=== PATIENT | female | born 1945 | race Caucasian/White ===

== ENCOUNTER → 2016-12-27 | Outpatient (CLI) | payer MEDICARE ==
--- NOTE | 2016-12-30 09:19 | MM ---
Reason for exam: screening (asymptomatic). Last mammogram was performed 1 year ago. History: Patient is postmenopausal. Took estrogen for 5 years. Took progesterone for 5 years. Physical Findings: A clinical breast exam by your physician is recommended on an annual basis and results should be correlated with mammographic findings. MG 3D Screening Mammo W/Cad Bilateral CC and MLO view(s) were taken. Prior study comparison: December 19, 2015, bilateral MG 3d screening mammo w/cad. November 25, 2014, bilateral MG screening mammo w CAD. The breast tissue is heterogeneously dense. This may lower the sensitivity of mammography. Stable punctate calcifications. New nodule lower inner right breast, 3.8cm from nipple. This finding is changed when compared with previous exams. ASSESSMENT: Incomplete: need additional imaging evaluation, BI-RAD 0 RECOMMENDATION: Special view mammogram of the right breast. If lesion persists on supplemental views, image directed ultrasound is recommended. [facility] will attempt to contact patient to return for supplemental views and ultrasound if indicated.
== END | disposition home or self-care (01) ==
LOC: RADMAMWWP 10:14
PROVIDERS: ATTEND Family Medicine
DX: Z12.31 Encounter for screening mammogram for malignant neoplasm of breast (principal); R92.2 Inconclusive mammogram
CPT/HCPCS: 77063; G0202

== ENCOUNTER → 2016-12-31 | Outpatient (CLI) | payer MEDICARE ==
--- NOTE | 2016-12-31 11:44 | MM ---
Reason for exam: additional evaluation requested from abnormal screening. Last mammogram was performed less than 1 month ago. History: Patient is postmenopausal. Took estrogen for 5 years. Took progesterone for 5 years. Physical Findings: Nurse did not find any significant physical abnormalities on exam. MG 3D Work Up W/Cad RT CC and MLO view(s) were taken of the right breast. Prior study comparison: December 27, 2016, bilateral MG 3d screening mammo w/cad. December 19, 2015, bilateral MG 3d screening mammo w/cad. There are scattered fibroglandular densities. Persistent nodule lower inner quadrant right breast. Ultrasound is recommended. These results were verbally communicated with the patient and result sheet given to the patient on 12/31/16. ASSESSMENT: Incomplete: need additional imaging evaluation, BI-RAD 0 RECOMMENDATION: Ultrasound of the right breast.
--- NOTE | 2016-12-31 11:46 | USB ---
Reason for exam: additional evaluation requested from abnormal screening. History: Patient is postmenopausal. Took estrogen for 5 years. Took progesterone for 5 years. US Breast Workup Limited RT Right breast ultrasound demonstrates a 0.8 x 0.4 x 0.9cm oval, solid lesion at 3 o'clock. These results were verbally communicated with the patient and result sheet given to the patient on 12/31/16. ASSESSMENT: Suspicious, BI-RAD 4 RECOMMENDATION: Ultrasound core biopsy of the right breast. Called Dr. Briones with mammographic findings and has scheduled an appointment for the patient for 02/27/17 at 10:[address] Ballesteros. Biopsy scheduled for 01/09/17 at 12:20. PRELIMINARY REPORT CALLED AND FAXED TO DR. BALLESTEROS ON 12/31/16 AT 300/TP.
== END | disposition home or self-care (01) ==
LOC: RADMAMWWP 08:08
PROVIDERS: ATTEND Family Medicine
DX: R92.8 Other abnormal and inconclusive findings on diagnostic imaging of breast (principal)
CPT/HCPCS: 76642; G0206; G0279

== ENCOUNTER → 2017-01-09 | Day surgery (SDC) | payer MEDICARE ==
[~2017-01-09] MED LIST: BACITRACIN OINT 1 EACH PACKET TOPICAL ONE; LIDOCAINE 1% INJ 10MG/ML (20 ML MDV) ONE; SODIUM BICARB 4% 5 ML VIAL (0.48 MEQ/ML) ONE
--- NOTE | 2017-01-09 13:24 | USB ---
EXAMINATION TYPE: US biopsy breast VAD RT, MG diagnostic mammo RT wo CAD DATE OF EXAM: 01/09/2017 1:02 PM CLINICAL HISTORY: R92.8 ABN Mammogram. TECHNIQUE: Ultrasound guided core biopsy of right 3:00 breast. COMPARISON: NONE FINDINGS: The procedure of ultrasound guided core biopsy was explained to the patient. Benefits, alternatives, and risks were discussed. An informed consent was then obtained. The patient was placed in supine positioning for imaging and for the procedure. The overlying skin was prepped and draped in usual sterile fashion. Lidocaine buffered with bicarbonate was used as anesthetic into the skin and subcutaneous tissue up to area of concern in the right 3:00 breast. A milton was made with surgical scalpel. Under ultrasound guidance, a 12-gauge vacuum assisted biopsy gun device was used to obtain 5 core samples. Following this, a biopsy clip was left in lesion. Mammogram demonstrates appropriate deployment. The patient tolerated the procedure well without any immediate complication. The patient was kept in the radiology department for short stay after the procedure and then discharged home in stable condition. IMPRESSION: Successful, uncomplicated ultrasound guided core biopsy of area of concern in the right 3:00 breast, full pathology results to follow. Pathology Results: Benign BREAST, RIGHT, CORE BIOPSY: FIBROCYSTIC CHANGES INCLUDING FIBROSIS, CYSTS, SCLEROSING ADENOSIS, APOCRINE METAPLASIA AND MILD USUAL TYPE DUCTAL HYPERPLASIA. PSEUDOANGIOMATOUS STROMAL HYPERPLASIA (PASH). Recommendation Follow up ultrasound of the right breast in 6 months. MTDD
== END | disposition home or self-care (01) ==
LOC: RADUSWWP 12:10
PROVIDERS: ATTEND Surgery
DX: N60.31 Fibrosclerosis of right breast (principal); N60.01 Solitary cyst of right breast; N60.21 Fibroadenosis of right breast; N60.81 Other benign mammary dysplasias of right breast; R92.8 Other abnormal and inconclusive findings on diagnostic imaging of breast
CPT/HCPCS: 88305; 19083; G0206; A4648; J2001

== ENCOUNTER → 2017-03-18 | Outpatient (CLI) | payer MEDICARE ==
[2017-03-18 09:03] LABS: Basophils % (A) 1 %; CH 30.5; CHCM 34.1; Eosinophils # (A) 0.2 k/uL (0-0.7); Eosinophils % (A) 3 %; HCT 45.1 % (34.0-46.0); HDW 2.82; HGB 15.1 gm/dL (11.4-16.0); Luc # (Auto) 0.23; Luc % (Auto) 4; Lymphocytes # (A) 1.8 k/uL (1.0-4.8); Lymphocytes % (A) 31 %; MCH 30.2 pg (25.0-35.0); MCHC 33.5 g/dL (31.0-37.0); Mean Platelet Volume 6.7; Monocytes # (A) 0.4 k/uL (0-1.0); Monocytes % (A) 7 %; Neutrophils # (A) 3.1 k/uL (1.3-7.7); Neutrophils % (A) 54 %; RBC 5.02 m/uL (3.80-5.40); RDW 14.5 % (11.5-15.5); WBC 5.7 k/uL (3.8-10.6); WBC (Perox) 5.45
[2017-03-18 09:23] LABS: Appearance,Urine Clear (Clear); Bilirubin,Urine Negative (Negative); Glucose,Urine (UA) Negative (Negative); Ketones,Urine Negative (Negative); Leukocyte Esterase,Urine Negative (Negative); Nitrite,Urine Negative (Negative); PH, Urine 6.5 (5.0-8.0); Protein,Urine Negative (Negative); Specific Gravity,Urine 1.009 (1.001-1.035); UA Billing (MACRO vs. MICRO) CHEM; Urobilinogen,Urine <2.0 mg/dL (<2.0)
[2017-03-18 10:43] LABS: Potassium 4.9 mmol/L (3.5-5.1)
[2017-03-18 10:53] LABS: % Iron Saturation 20.7 % (20-50)
== END | disposition home or self-care (01) ==
LOC: LABWHC1 08:31
PROVIDERS: ATTEND Nurse Practitioner Family
DX: E03.8 Other specified hypothyroidism (principal); E78.2 Mixed hyperlipidemia; N18.3 Chronic kidney disease, stage 3 (moderate); D64.9 Anemia, unspecified; E55.9 Vitamin D deficiency, unspecified; E21.3 Hyperparathyroidism, unspecified; N39.0 Urinary tract infection, site not specified
CPT/HCPCS: 36415; 80048; 80061; 81003; 82306; 82728; 83540; 83550; 83970; 84439; 84443; 85025

== ENCOUNTER 2017-04-10 09:59 | Day surgery (SDC) | payer MEDICARE ==
[2017-04-09 09:19] VITALS: BMI 30.9
[~2017-04-10 09:59] MED LIST changes: -BACITRACIN OINT 1 EACH PACKET TOPICAL ONE; +LACTATED RINGERS 1,000 ML IV SCH; +LIDOCAINE 1% 20 ML VIAL (10MG/ML) FOR IV START INTRADERMA PRN; -LIDOCAINE 1% INJ 10MG/ML (20 ML MDV) ONE; -SODIUM BICARB 4% 5 ML VIAL (0.48 MEQ/ML) ONE
[2017-04-10 12:37] VITALS: TEMP 96.1
[2017-04-10] MEDS ORDERED: LIDOCAINE 1% 20 ML VIAL (10MG/ML) FOR IV START INTRADERMA ONE (12:37)
[2017-04-10] MEDS ORDERED: LIDOCAINE 1% INJ 10MG/ML (20 ML MDV) ONE (12:59)
[2017-04-10] MEDS ORDERED: PROPOFOL 10 MG/ML 20 ML VIAL IV ONE (12:59)
--- NOTE | 2017-04-10 13:27 | P.PCN ---
Date of Procedure: 04/10/17 Preoperative Diagnosis: Postoperative Diagnosis: Procedure(s) Performed: Procedure: Total colonoscopy. Preoperative diagnosis: History of rectal bleeding. Postoperative diagnosis: #1 mild sigmoid diverticulosis with no evidence of acute diverticulitis or strictures. #2 low-grade internal hemorrhoids without bleeding at the time of this exam. Preparation: HalfLytely prep. Sedation: Was provided by anesthesia. Brief clinical history: The patient is a 71-year-old female who is referred for this evaluation because of history of bleeding back in December of this year. The patient was evaluated in February 2011 and at that time had colitis consistent with ischemic colitis and she has done well until this December where she had a brief episode of bleeding which at that time was attributed to perianal issues. Procedure: With the patient on her left lateral decubitus position and after informed consent and adequate sedation, the perianal area was inspected and it did not show any fissures or fistulas. There was an erythematous rash in the immediate perianal area with no spontaneous bleeding. There were no masses felt on digital rectal examination. The Olympus CFQ 160L video colonoscope was then inserted in the rectum in the usual fashion and advanced to the cecum. There were a few small diverticular orifices seen scattered in the distal sigmoid with no evidence of acute diverticulitis or strictures. No polyps or tumors were seen. The mucosa appeared healthy. I retroflexed the endoscope in the rectum before the endoscope was withdrawn. Low-grade internal hemorrhoids were noted but there was no bleeding. The patient tolerated the procedure well. Plan: The patient was reassured. Discussed dietary measures and local care for hemorrhoids. She will follow-up with you as planned and further plans can be made based on her course. I would be happy to see in the future if her symptoms recur. Implants: Indications for Procedure: Operative Findings: Description of Procedure:
[2017-04-10 13:41] VITALS: RESP 18
[2017-04-10] MEDS ORDERED: ONDANSETRON 4 MG/2 ML VIAL IVP ONE (13:49)
[2017-04-10 13:58] VITALS: BP 136/68; PULSE 53
== END 2017-04-10 14:13 | disposition home or self-care (01) ==
LOC: ORWHC2ENDO 09:59
DX: K57.30 Diverticulosis of large intestine without perforation or abscess without bleeding (principal); K64.8 Other hemorrhoids; K21.9 Gastro-esophageal reflux disease without esophagitis; I12.9 Hypertensive chronic kidney disease with stage 1 through stage 4 chronic kidney disease, or unspecified chronic kidney disease; N18.9 Chronic kidney disease, unspecified; E78.5 Hyperlipidemia, unspecified; E07.9 Disorder of thyroid, unspecified; N28.9 Disorder of kidney and ureter, unspecified; Z79.899 Other long term (current) drug therapy; Z88.1 Allergy status to other antibiotic agents; Z88.5 Allergy status to narcotic agent; Z88.2 Allergy status to sulfonamides
CPT/HCPCS: 45378; J2405; J2001; J2704

== ENCOUNTER → 2017-06-17 | Outpatient (CLI) | payer MEDICARE ==
--- NOTE | 2017-06-17 15:05 | US ---
EXAMINATION TYPE: US venous doppler duplex LE BI DATE OF EXAM: 06/17/2017 2:52 PM COMPARISON: 2009 left lower extremity venous ultrasound CLINICAL HISTORY: Edema lower extremity R60.0. SIDE PERFORMED: Bilateral TECHNIQUE: The lower extremity deep venous system is examined utilizing real time linear array sonog yumiko with graded compression, doppler sonography and color-flow sonography. VESSELS IMAGED: External Iliac Vein (EIV) Common Femoral Vein Deep Femoral Vein Greater Saphenous Vein * Femoral Vein Popliteal Vein Small Saphenous Vein * Proximal Calf Veins (* superficial vessels) Right Leg: Negative for DVT Left Leg: Negative for DVT also scanned area of soft palpable left ankle, rt ankle negative juan Grayscale, color doppler, spectral doppler imaging performed of the deep veins of the bilateral lower extremities. There is normal flow, compressibility, vascular waveforms bilaterally. Scanning of th e lower calf medially at area of pain shows no worrisome solid or cystic mass or fluid collection juan aterally. IMPRESSION: No ultrasound evidence for acute DVT in either lower extremity.
== END | disposition home or self-care (01) ==
LOC: RADUSWWP 14:04
PROVIDERS: ATTEND Family Medicine
DX: R60.0 Localized edema (principal)
CPT/HCPCS: 93970

== ENCOUNTER → 2017-07-21 | Outpatient (CLI) | payer MEDICARE ==
--- NOTE | 2017-07-22 09:00 | MM ---
Reason for exam: follow-up at short interval from prior study. Last mammogram was performed 6 months ago. History: Patient is postmenopausal. Benign US biopsy breast VAD RT of the right breast, January 09, 2017. Took estrogen for 5 years. Took progesterone for 5 years. Physical Findings: Nurse did not find any significant physical abnormalities on exam. MG 3D Diag Mammo W/Cad RT CC and MLO view(s) were taken of the right breast. Prior study comparison: January 09, 2017, right breast MG diagnostic mammo RT wo CAD. December 31, 2016, right breast MG 3d work up w/cad RT. November 16, 2013, bilateral digital screening mammo w/CAD. Stable upper outer quadrant group of calcifications at middle depth back to 11/16/13. No suspicious abnormality. Post biopsy change at 3 o'clock in the right breast. No significant new findings when compared with previous films. These results were verbally communicated with the patient and result sheet given to the patient on 07/21/17. ASSESSMENT: Benign, BI-RAD 2 RECOMMENDATION: Return to routine screening mammogram schedule for both breasts. Back on schedule for December 2017.
--- NOTE | 2017-07-22 09:02 | USB ---
Reason for exam: follow-up at short interval from prior study. History: Patient is postmenopausal. Benign US biopsy breast VAD RT of the right breast, January 09, 2017. Took estrogen for 5 years. Took progesterone for 5 years. US Breast RT Right breast ultrasound includes all four quadrants, the retroareolar region and axilla. Finding demonstrates a 0.4 x 0.2 x 0.2cm solid, hypoechoic lesion at 3 o'clock, previously biopsied mass. These results were verbally communicated with the patient and result sheet given to the patient on 07/21/17. ASSESSMENT: Benign, BI-RAD 2 RECOMMENDATION: Surgical consultation of the right breast. (for prior biopsy of PASH, if consult has not been performed) Called with mammographic findings and has scheduled an appointment for the patient for 08/14/17 at 8:[address] Ballesteros. PRELIMINARY REPORT CALLED AND FAXED TO DR. BALLESTEROS ON 07/22/17 /TP. Return to routine screening mammogram schedule for both breasts. Back on schedule for December 2017.
== END | disposition home or self-care (01) ==
LOC: RADMAMWWP 14:05
PROVIDERS: ATTEND Surgery
DX: R92.8 Other abnormal and inconclusive findings on diagnostic imaging of breast (principal)
CPT/HCPCS: 76641; G0206; G0279

== ENCOUNTER → 2017-08-20 | Outpatient (CLI) | payer MEDICARE ==
[2017-08-20 11:45] LABS: Appearance,Urine Clear (Clear); Bilirubin,Urine Negative (Negative); Glucose,Urine (UA) Negative (Negative); Ketones,Urine Negative (Negative); Leukocyte Esterase,Urine Negative (Negative); Nitrite,Urine Negative (Negative); PH, Urine 5.5 (5.0-8.0); Protein,Urine Negative (Negative); Specific Gravity,Urine 1.005 (1.001-1.035); UA Billing (MACRO vs. MICRO) CHEM; Urobilinogen,Urine <2.0 mg/dL (<2.0)
[2017-08-20 11:49] LABS: Basophils % (A) 1 %; CH 30.4; CHCM 33.2; Eosinophils # (A) 0.2 k/uL (0-0.7); Eosinophils % (A) 3 %; HCT 45.5 % (34.0-46.0); HDW 2.71; HGB 14.6 gm/dL (11.4-16.0); Luc # (Auto) 0.21; Luc % (Auto) 3; Lymphocytes % (A) 31 %; MCH 29.5 pg (25.0-35.0); MCV 92.2 fL (80.0-100.0); Mean Platelet Volume 6.9; Monocytes # (A) 0.5 k/uL (0-1.0); Monocytes % (A) 7 %; Neutrophils # (A) 3.6 k/uL (1.3-7.7); Neutrophils % (A) 56 %; RBC 4.93 m/uL (3.80-5.40); RDW 15.4 % (11.5-15.5); WBC 6.5 k/uL (3.8-10.6); WBC (Perox) 6.43
[2017-08-20 12:22] LABS: Anion Gap 10 mmol/L; Blood Urea Nitrogen 13 mg/dL (7-17); Calcium 9.5 mg/dL (8.4-10.2); Carbon Dioxide 26 mmol/L (22-30); Chloride 103 mmol/L (98-107); Glucose 105 mg/dL (74-99); Magnesium 1.9 mg/dL (1.6-2.3); Non-African American GFR(MDRD) 50 (>60 ml/min/1.73 sqM); Phosphorous 3.1 mg/dL (2.5-4.5); Potassium 4.3 mmol/L (3.5-5.1); Sodium 139 mmol/L (137-145)
[2017-08-20 15:16] LABS: Iron Saturation 22.7 (12.00-45.00)
== END | disposition home or self-care (01) ==
LOC: LABWHC1 10:42
PROVIDERS: ATTEND Internal Medicine Nephrology
DX: N18.3 Chronic kidney disease, stage 3 (moderate) (principal); N25.81 Secondary hyperparathyroidism of renal origin; D64.9 Anemia, unspecified; M10.9 Gout, unspecified; N39.0 Urinary tract infection, site not specified
CPT/HCPCS: 36415; 80048; 81003; 82306; 82728; 83540; 83550; 83735; 83970; 84100; 84550; 85025

== ENCOUNTER → 2017-12-29 | Outpatient (CLI) | payer MEDICARE ==
--- NOTE | 2017-12-30 14:17 | MM ---
Reason for exam: screening (asymptomatic). Last mammogram was performed 5 months ago. History: Patient is postmenopausal. Benign US biopsy breast VAD RT of the right breast, January 09, 2017. Took estrogen for 5 years. Took progesterone for 5 years. Physical Findings: A clinical breast exam by your physician is recommended on an annual basis and results should be correlated with mammographic findings. MG 3D Screening Mammo W/Cad Bilateral CC and MLO view(s) were taken. Prior study comparison: July 21, 2017, right breast MG 3d diag mammo w/cad RT. January 09, 2017, right breast MG diagnostic mammo RT wo CAD. The breast tissue is heterogeneously dense. This may lower the sensitivity of mammography. There is a stable group of right upper outer quadrant calcifications back to 2010. No suspicious abnormality. Right biopsy marker noted. No significant changes when compared with prior studies. ASSESSMENT: Benign, BI-RAD 2 RECOMMENDATION: Routine screening mammogram of both breasts in 1 year.
== END | disposition home or self-care (01) ==
LOC: RADMAMWWP 12:46
PROVIDERS: ATTEND Surgery
DX: Z12.31 Encounter for screening mammogram for malignant neoplasm of breast (principal)
CPT/HCPCS: 77063; 77067

== ENCOUNTER → 2018-03-11 | Outpatient (CLI) | payer MEDICARE ==
[2018-03-11 09:20] LABS: Basophils % (A) 0 %; Eosinophils # (A) 0.2 k/uL (0-0.7); Eosinophils % (A) 4 %; HCT 44.4 % (34.0-46.0); HGB 15.2 gm/dL (11.4-16.0); Lymphocytes # (A) 1.8 k/uL (1.0-4.8); Lymphocytes % (A) 32 %; MCH 30.2 pg (25.0-35.0); MCHC 34.2 g/dL (31.0-37.0); MCV 88.3 fL (80.0-100.0); Mean Platelet Volume 6.6; Monocytes # (A) 0.4 k/uL (0-1.0); Monocytes % (A) 7 %; Neutrophils # (A) 2.9 k/uL (1.3-7.7); Neutrophils % (A) 54 %; Platelet Count 260 k/uL (150-450); RBC 5.03 m/uL (3.80-5.40); RDW 14.1 % (11.5-15.5); WBC 5.5 k/uL (3.8-10.6)
[2018-03-11 09:47] LABS: Appearance,Urine Clear (Clear); Bilirubin,Urine Negative (Negative); Blood,Urine Negative (Negative); Color,Urine Yellow; Glucose,Urine (UA) Negative (Negative); Ketones,Urine Negative (Negative); Leukocyte Esterase,Urine Large (Negative); Mucus,Urine Occasional /hpf; Nitrite,Urine Negative (Negative); PH, Urine 5.5 (5.0-8.0); Protein,Urine Negative (Negative); RBC,Urine <1 /hpf (0-5); Specific Gravity,Urine 1.016 (1.001-1.035); Squamous Epithelial Cell,Urine 2 /hpf (0-4); Urobilinogen,Urine <2.0 mg/dL (<2.0); WBC,Urine 18 /hpf (0-5)
[2018-03-11 10:13] LABS: Calcium 9.4 mg/dL (8.4-10.2); Magnesium 1.8 mg/dL (1.6-2.3); Phosphorus 3.2 mg/dL (2.5-4.5); Potassium 3.8 mmol/L (3.5-5.1); Uric Acid 8.7 mg/dL (3.7-7.4)
[2018-03-11 17:02] LABS: Parathyroid Hormone Intact 65.1 pg/mL (14.0-72.0)
[2018-03-11 17:14] LABS: Iron Saturation 27.3 (12.00-45.00)
== END ==
LOC: LABWHC1 08:16
PROVIDERS: ATTEND Internal Medicine Nephrology
DX: E78.2 Mixed hyperlipidemia (principal); N18.3 Chronic kidney disease, stage 3 (moderate); E61.1 Iron deficiency; N25.81 Secondary hyperparathyroidism of renal origin; M10.9 Gout, unspecified; N39.0 Urinary tract infection, site not specified
CPT/HCPCS: 36415; 80048; 80061; 81001; 82306; 82728; 83540; 83550; 83735; 83970; 84100; 84550; 85025

== ENCOUNTER → 2018-09-07 | Outpatient (CLI) | payer MEDICARE ==
[2018-09-07 12:04] LABS: Basophils % (A) 0 %; Eosinophils # (A) 0.2 k/uL (0-0.7); Eosinophils % (A) 3 %; HCT 46.8 % (34.0-46.0); HGB 15.6 gm/dL (11.4-16.0); Lymphocytes # (A) 1.6 k/uL (1.0-4.8); Lymphocytes % (A) 28 %; MCH 30.4 pg (25.0-35.0); MCHC 33.3 g/dL (31.0-37.0); MCV 91.3 fL (80.0-100.0); Mean Platelet Volume 6.6; Monocytes # (A) 0.3 k/uL (0-1.0); Monocytes % (A) 5 %; Neutrophils # (A) 3.6 k/uL (1.3-7.7); Neutrophils % (A) 61 %; Platelet Count 276 k/uL (150-450); RBC 5.13 m/uL (3.80-5.40); RDW 14.3 % (11.5-15.5); WBC 5.8 k/uL (3.8-10.6)
[2018-09-07 12:16] LABS: Appearance,Urine Clear (Clear); Bacteria,Urine Rare /hpf; Bilirubin,Urine Negative (Negative); Blood,Urine Negative (Negative); Color,Urine Yellow; Glucose,Urine (UA) Negative (Negative); Ketones,Urine Negative (Negative); Leukocyte Esterase,Urine Moderate (Negative); Mucus,Urine Occasional /hpf; Nitrite,Urine Negative (Negative); PH, Urine 5.5 (5.0-8.0); Protein,Urine Negative (Negative); RBC,Urine 1 /hpf (0-5); Specific Gravity,Urine 1.014 (1.001-1.035); Squamous Epithelial Cell,Urine 3 /hpf (0-4); Urobilinogen,Urine <2.0 mg/dL (<2.0); WBC,Urine 9 /hpf (0-5)
[2018-09-07 17:28] LABS: Iron Saturation 32.29 (12.00-45.00)
[2018-09-07 17:34] LABS: Anion Gap 5.7 mmol/L (4.00-12.00); Calcium 9.4 mg/dL (8.7-10.3); Carbon Dioxide 26.3 mmol/L (21.6-31.8); LDL Cholesterol,Calculated 103.4 mg/dL (0.0-131.0); Magnesium 1.8 mg/dL (1.5-2.4); Phosphorus 2.9 mg/dL (2.4-5.1); Potassium 4.1 mmol/L (3.5-5.5); Uric Acid 7.6 mg/dL (2.9-7.7); VLDL Calculation 41.6 mg/dL (5.00-40.00)
[2018-09-07 17:36] LABS: Vitamin D 25 Hydroxy 40.4 ng/mL (30.0-100.0)
[2018-09-07 17:42] LABS: T4, Free (Free Thyroxine) 1.1 ng/dL (0.80-1.80)
[2018-09-07 18:07] LABS: Parathyroid Hormone Intact 57.5 pg/mL (14.0-72.0)
== END ==
LOC: LABWHC1 10:16
PROVIDERS: ATTEND Internal Medicine Nephrology
DX: E03.8 Other specified hypothyroidism (principal); M10.9 Gout, unspecified; N18.3 Chronic kidney disease, stage 3 (moderate); D50.9 Iron deficiency anemia, unspecified; E55.9 Vitamin D deficiency, unspecified; N39.0 Urinary tract infection, site not specified; I12.9 Hypertensive chronic kidney disease with stage 1 through stage 4 chronic kidney disease, or unspecified chronic kidney disease
CPT/HCPCS: 36415; 80048; 80061; 81001; 82306; 82728; 83540; 83550; 83735; 83970; 84100; 84439; 84443; 84550; 85025

== ENCOUNTER 2018-12-29 16:28 | Emergency (ER) | payer MEDICARE ==
--- NOTE | 2018-12-29 17:04 | ED ---
General Adult HPI - General Chief complaint: Fall Stated complaint: fell/hit head Time Seen by Provider: 12/29/18 16:44 Source: patient, RN notes reviewed, old records reviewed Mode of arrival: ambulatory Limitations: no limitations - History of Present Illness Initial comments: 73-year-old female history of hypertension presents status post fall. Patient slipped on ice, fell striking the back of her head. No loss consciousness. Patient does complain of a headache in the site of injury. No bleeding. Patient is not on anticoagulation, she takes 81 mg aspirin daily. Denies neck pain. Denies vision changes. Denies focal numbness or weakness. Denies back pain. Denies chest pain or abdominal pain. She has been able to 20 with no hip leg pain, no extremity pain. - Related Data Home Medications Medication Instructions Recorded Confirmed Aspirin 81 mg PO DAILY 04/09/17 04/10/17 Atenolol [Tenormin] 25 mg PO HS 04/09/17 04/10/17 Atorvastatin [Lipitor] 40 mg PO DAILY 04/09/17 04/10/17 Calcitriol [Rocaltrol] 0.25 mcg PO Q7D 04/09/17 04/10/17 Calcium Carbonate/Vitamin D3 1 each PO DAILY 04/09/17 04/10/17 [Calcium 600-Vit D3 800 Tab] Candesartan Cilexetil 4 mg PO HS 04/09/17 04/10/17 Fish Oil/Dha/Epa [Fish Oil 1,200 1 each PO DAILY 04/09/17 04/10/17 mg Fish Oil] Hydrochlorothiazide [Hydrodiuril] 12.5 mg PO DAILY 04/09/17 04/10/17 Levothyroxine Sodium [Synthroid] 25 mcg PO QAM 04/09/17 04/10/17 Omeprazole [PriLOSEC] 20 mg PO HS 04/09/17 04/10/17 Pilocarpine [Salagen] 5 mg PO TID PRN 04/09/17 04/10/17 Allergies Allergy/AdvReac Type Severity Reaction Status Date / Time levofloxacin [From Levaquin] Allergy Rash/Hives Verified 12/29/18 16:41 Sulfa (Sulfonamide Allergy Rash/Hives Verified 12/29/18 16:41 Antibiotics) codeine AdvReac Nausea & Verified 12/29/18 16:41 Vomiting Review of Systems ROS Statement: Those systems with pertinent positive or pertinent negative responses have been documented in the HPI. ROS Other: All systems not noted in ROS Statement are negative. Past Medical History Past Medical History: GERD/Reflux, Hyperlipidemia, Hypertension, Renal Disease, Thyroid Disorder Additional Past Medical History / Comment(s): states "has kidney failure 45 GFR " History of Any Multi-Drug Resistant Organisms: None Reported Past Surgical History: Orthopedic Surgery Additional Past Surgical History / Comment(s): tendon release rt wrist,juan cataract,finger surg Past Anesthesia/Blood Transfusion Reactions: Motion Sickness Past Psychological History: No Psychological Hx Reported Smoking Status: Never smoker Past Alcohol Use History: None Reported Past Drug Use History: None Reported - Past Family History Mother Family Medical History: No Reported History Father Family Medical History: No Reported History General Exam Limitations: no limitations General appearance: alert, in no apparent distress Head exam: Absent: atraumatic (Tenderness, occipital scalp, small hematoma, no laceration or bleeding.) Eye exam: Present: normal appearance, PERRL, EOMI Neck exam: Present: normal inspection, full ROM. Absent: tenderness, meningismus Respiratory exam: Present: normal lung sounds bilaterally. Absent: respiratory distress, wheezes, rales Cardiovascular Exam: Present: regular rate, normal rhythm GI/Abdominal exam: Present: soft. Absent: distended, tenderness, guarding Extremities exam: Present: normal inspection, normal capillary refill. Absent: pedal edema Back exam: Present: normal inspection, full ROM. Absent: tenderness, CVA tenderness (R), CVA tenderness (L), paraspinal tenderness, vertebral tenderness Neurological exam: Present: alert, oriented X3, CN II-XII intact, normal gait. Absent: motor sensory deficit Psychiatric exam: Present: normal affect, normal mood Skin exam: Present: warm, dry, intact Course Vital Signs 12/29/18 16:38 Temperature 97.7 F Pulse Rate 82 Respiratory 20 Rate Blood Pressure 138/80 O2 Sat by Pulse 97 Oximetry Medical Decision Making - Medical Decision Making 73-year-old female with head trauma, no laceration, no loss consciousness, no anticoagulation. Patient well-appearing with nonfocal exam, stable vitals. Head CT obtained, negative for intracranial hemorrhage or mass effect, negative cervical spine for fracture subluxation. Patient will be discharged home at this time. Follow-up with primary care physician. Disposition Clinical Impression: Fall, Closed head injury Disposition: HOME SELF-CARE Condition: Good Instructions (If sedation given, give patient instructions): Concussion (ED) Is patient prescribed a controlled substance at d/c from ED?: No Referrals: Dave Briones DO [Primary Care Provider] - 1-2 days Time of Disposition: 18:23
--- NOTE | 2018-12-29 18:18 | CT ---
EXAMINATION TYPE: CT brain mandeep mcgregor con DATE OF EXAM: 12/29/2018 COMPARISON: None HISTORY: headache and neck pain post fall CT DLP: 1210 mGycm Automated exposure control for dose reduction was used. TECHNIQUE: CT scan of the head and cervical spine are performed without contrast. FINDINGS: There is no acute intracranial hemorrhage, mass effect, or midline shift identified. The ventricles and sulci are within normal limits in size. The globes are intact and the visualized sin uses are clear. Cervical spine is visualized in its entirety from C1 through upper thoracic levels and demonstrates s atisfactory alignment without evidence of acute fracture or dislocation. Prevertebral soft tissue ap pears within normal limits. The C1-C2 articulation is unremarkable. IMPRESSION: 1. There is no acute fracture or dislocation evident in the cervical spine. 2. No acute intracranial hemorrhage, mass effect, or midline shift is seen.
[2018-12-29 18:43] VITALS: BP 117/62; PULSE 77; RESP 18; TEMP 96.2
== END 2018-12-29 18:42 | disposition home or self-care (01) ==
LOC: EC 16:28
DX: S00.03XA Contusion of scalp, initial encounter (principal); E78.5 Hyperlipidemia, unspecified; I10 Essential (primary) hypertension; K21.9 Gastro-esophageal reflux disease without esophagitis; E07.9 Disorder of thyroid, unspecified; Z88.1 Allergy status to other antibiotic agents; Z88.2 Allergy status to sulfonamides; Z88.5 Allergy status to narcotic agent; Z79.82 Long term (current) use of aspirin; Z79.890 Hormone replacement therapy; Z79.899 Other long term (current) drug therapy; W00.0XXA Fall on same level due to ice and snow, initial encounter; Y92.89 Other specified places as the place of occurrence of the external cause
CPT/HCPCS: 70450; 72125; 99284

== ENCOUNTER → 2018-12-31 | Outpatient (CLI) | payer MEDICARE ==
--- NOTE | 2019-01-01 11:00 | MM ---
Reason for exam: screening (asymptomatic). Last mammogram was performed 1 year ago. History: Patient is postmenopausal. Benign US biopsy breast VAD RT of the right breast, January 09, 2017. Took estrogen for 5 years. Took progesterone for 5 years. Physical Findings: A clinical breast exam by your physician is recommended on an annual basis and results should be correlated with mammographic findings. MG 3D Screening Mammo W/Cad Bilateral CC and MLO view(s) were taken. Prior study comparison: December 29, 2017, bilateral MG 3d screening mammo w/cad. July 21, 2017, right breast MG 3d diag mammo w/cad RT. The breast tissue is heterogeneously dense. This may lower the sensitivity of mammography. Benign calcifications in the right breast. No suspicious abnormality. Right biopsy marker noted. No significant changes when compared with prior studies. ASSESSMENT: Benign, BI-RAD 2 RECOMMENDATION: Routine screening mammogram of both breasts in 1 year.
== END | disposition home or self-care (01) ==
LOC: RADMAMWWP 10:09
PROVIDERS: ATTEND Obstetrics & Gynecology
DX: Z12.31 Encounter for screening mammogram for malignant neoplasm of breast (principal)
CPT/HCPCS: 77063; 77067

== ENCOUNTER → 2020-01-11 | Outpatient (CLI) | payer MEDICARE ==
--- NOTE | 2020-01-11 15:23 | BD ---
EXAMINATION TYPE: Axial Bone Density DATE OF EXAM: 01/11/2020 COMPARISON: 2014 CLINICAL HISTORY: Height: 63.5 Weight: 185 FRAX RISK QUESTIONS: Alcohol (3 or more units per day): no Family History (Parent hip fracture): no Glucocorticoids (More than 3mos): no (Ex: prednisone, prednisolone, methylprednisolone, dexamethasone, and hydrocortisone). History of Fracture in Adulthood: no Secondary Osteoporosis: 1. Type 1 Diabetes: no 2. Hyperthyroidism: no 3. Menopause before 45: no 4. Malnutrition: no 5. Chronic liver disease: no Rheumatoid Arthritis: no Current Tobacco Use: no RISK FACTORS HISTORY OF: Family History of Osteoporosis: not to knowledge of patient Active: yes Diet low in dairy products/other sources of calcium: at least one serving a day Postmenopausal woman: yes Take estrogen and/or progesterone medications: not now How long: estrogen/progesterone about 5 years Lost more than 2 inches in height since high school: no Frequent falls: no Poor Health: no Hyperparathyroidism: no Adrenal Insufficiency: no MEDICATIONS: Prednisone or other steroids: no Thyroid Medications: yes Which medication: Levothyroxine How Long: about 10 years Osteoporosis Medications: no Additional Medications: blood pressure med, cholesterol med ; Ergo debby; calcium with vitamin D; Calci triol Additional History: loss of kidney function EXAM MEASUREMENTS: Bone mineral densitometry was performed using the [employer] System. Bone mineral density as measured about the Lumbar spine is: ----- L1-L4(G/cm2): 1.367 T Score Values are as follows: ----- L2: 1.8 ----- L3: 2.2 ----- L4: 2.1 ----- L1-L4: 1.6 Bone mineral density has: Increased 10.6% since study of: 02/28/2015 Bone mineral density about the R hip (g/cm2): 0.940 Bone mineral density about the L hip (g/cm2): 0.989 T Score values are as follows: -----R Neck: -0.7 -----L Neck: -0.3 -----R Total: 0.1 -----L Total: -0.2 Bone mineral density has: Decreased -4.5% since study of: 02/28/2015 IMPRESSION: Normal (Values between +1 and -1 indicate normal bone mass). Consider repeating this study in 5 year s or sooner if there is some new clinical indication. NOTE: T-SCORE=SD OF THE YOUNG ADULT MEAN.
--- NOTE | 2020-01-12 11:27 | MM ---
Reason for exam: screening (asymptomatic). Last mammogram was performed 1 year ago. History: Patient is postmenopausal. Benign US biopsy breast VAD RT of the right breast, January 09, 2017. Took hormonal contraceptives for 2 years. Took estrogen for 5 years. Took progesterone for 5 years. Physical Findings: A clinical breast exam by your physician is recommended on an annual basis and results should be correlated with mammographic findings. MG 3D Screening Mammo W/Cad Bilateral CC and MLO view(s) were taken. Prior study comparison: December 31, 2018, bilateral MG 3d screening mammo w/cad. December 29, 2017, bilateral MG 3d screening mammo w/cad. The breast tissue is heterogeneously dense. This may lower the sensitivity of mammography. Finding: There are typically benign round grouped and diffuse/scattered calcifications in both breasts. Previous mammotome biopsy in the right breast. There is a chronic nodularity in the left breast. There is no discrete abnormality. ASSESSMENT: Benign, BI-RAD 2 RECOMMENDATION: Routine screening mammogram of both breasts in 1 year.
== END | disposition home or self-care (01) ==
LOC: RADMAMWWP 13:54
PROVIDERS: ATTEND Obstetrics & Gynecology
DX: Z12.31 Encounter for screening mammogram for malignant neoplasm of breast (principal); Z13.820 Encounter for screening for osteoporosis; N95.1 Menopausal and female climacteric states
CPT/HCPCS: 77063; 77067; 77080

== ENCOUNTER → 2021-03-30 | Outpatient (CLI) | payer MEDICARE ==
--- NOTE | 2021-04-04 10:09 | MM ---
Reason for exam: screening (asymptomatic). Last mammogram was performed 1 year and 3 months ago. History: Patient is postmenopausal. Benign US biopsy breast VAD RT of the right breast, January 09, 2017. Took hormonal contraceptives for 2 years. Took estrogen for 5 years. Took progesterone for 5 years. Physical Findings: A clinical breast exam by your physician is recommended on an annual basis and results should be correlated with mammographic findings. MG 3D Screening Mammo W/Cad Bilateral CC and MLO view(s) were taken. Prior study comparison: January 11, 2020, bilateral MG 3d screening mammo w/cad. December 31, 2018, bilateral MG 3d screening mammo w/cad. The breast tissue is heterogeneously dense. This may lower the sensitivity of mammography. Previous mammotome biopsy in the right breast. ASSESSMENT: Benign, BI-RAD 2 RECOMMENDATION: Routine screening mammogram of both breasts in 1 year.
== END | disposition home or self-care (01) ==
LOC: RADMAMWWP 13:15
PROVIDERS: ATTEND Obstetrics & Gynecology
DX: Z12.31 Encounter for screening mammogram for malignant neoplasm of breast (principal); Z78.0 Asymptomatic menopausal state
CPT/HCPCS: 77063; 77067

== ENCOUNTER → 2021-10-25 | Outpatient (CLI) | payer MEDICARE ==
--- NOTE | 2021-10-26 06:58 | US ---
EXAMINATION TYPE: US kidneys/renal and bladder DATE OF EXAM: 10/25/2021 COMPARISON: CT 2010 CLINICAL HISTORY: N18.3 CKD STAGE 3. known ckd, no symptoms EXAM MEASUREMENTS: Right Kidney: 8.5 x 4.1 x 4.4 cm Left Kidney: 9.4 x 5.3 x 5.0 cm Right Kidney: Slightly smaller in size, otherwise wnl Left Kidney: No hydronephrosis or masses seen Bladder: wnl There is no evidence for hydronephrosis at this point in time. No nephrolithiasis is seen. No suspi cious masses are identified on images saved. The urinary bladder is not greatly distended. Bilatera l ureteral jets are not seen. IMPRESSION: No hydronephrosis seen bilaterally.
== END | disposition home or self-care (01) ==
LOC: RADUSWWP 16:06
PROVIDERS: ATTEND Internal Medicine Nephrology
DX: N18.30 Chronic kidney disease, stage 3 unspecified (principal)
CPT/HCPCS: 76770

== ENCOUNTER → 2022-04-03 | Outpatient (CLI) | payer MEDICARE ==
--- NOTE | 2022-04-04 14:51 | MM ---
Reason for Exam: Screening (asymptomatic). Last screening mammogram was performed 12 month(s) ago. Patient History: Menarche at age 13. First Full-Term at age 23. Patient used Estrogen for 5 years. Patient used Progesterone for 5 years. Patient used Hormonal Contraceptives for 2 years. 01/09/2017, Benign Core Biopsy on the right side. Risk Values: Vivienne 5 year model risk: 1.9%. NCI Lifetime model risk: 4.0%. Film Views: Bilateral CC views were taken. Bilateral MLO views were taken. Prior Study Comparison: 12/31/2018 Bilateral Screening Mammogram, [facility]. 01/11/2020 Bilateral Screening Mammogram, [facility]. 03/30/2021 Bilateral Screening Mammogram, [facility]. Tissue Density: There are scattered fibroglandular densities. Findings: Analyzed By CAD. There is no suspicious group of microcalcifications or new suspicious mass in either breast. Overall Assessment: Benign, BI-RAD 2 Management: Screening Mammogram of both breasts in 1 year. A clinical breast exam by your physician is recommended on an annual basis and results should be correlated with mammographic findings. Electronically signed and approved by: Isaias Jorge M.D. Radiologis
== END | disposition home or self-care (01) ==
LOC: RADMAMWWP 10:09
PROVIDERS: ATTEND Obstetrics & Gynecology
DX: Z12.31 Encounter for screening mammogram for malignant neoplasm of breast (principal)
CPT/HCPCS: 77063; 77067

== ENCOUNTER 2022-08-15 12:06 | Inpatient (IN) | payer MEDICARE ==
[2022-08-15 12:22] LABS: Basophils # (A) 0.1 k/uL (0-0.2); Basophils % (A) 1 %; Eosinophils # (A) 0.3 k/uL (0-0.7); Eosinophils % (A) 3 %; HCT 46.5 % (34.0-46.0); HGB 15.2 gm/dL (11.4-16.0); Lymphocytes # (A) 4.2 k/uL (1.0-4.8); Lymphocytes % (A) 40 %; MCH 31.1 pg (25.0-35.0); MCHC 32.6 g/dL (31.0-37.0); MCV 95.5 fL (80.0-100.0); Mean Platelet Volume 7.5; Monocytes # (A) 0.6 k/uL (0-1.0); Monocytes % (A) 6 %; Neutrophils # (A) 5.2 k/uL (1.3-7.7); Neutrophils % (A) 49 %; Platelet Count 361 k/uL (150-450); RBC 4.87 m/uL (3.80-5.40); RDW 13.8 % (11.5-15.5); WBC 10.7 k/uL (3.8-10.6)
--- NOTE | 2022-08-15 12:26 | CT ---
EXAMINATION TYPE: CT brain wo con for TPA DATE OF EXAM: 08/15/2022 HISTORY: Neuro deficits code stroke. Acute onset neuro deficit. CT DLP: 1162.6 mGycm. Automated Exposure Control for Dose Reduction was Utilized. TECHNIQUE: CT scan of the head is performed without contrast. COMPARISON: CT brain December 19, 2018. FINDINGS: There is no acute intracranial hemorrhage or midline shift identified. There is mild diff use ventricular and sulcal prominence consistent with diffuse age-related cerebral atrophy. There is new vague area of low attenuation and sulcal effacement high right parietal occipital region axial im age 42 through 48 corresponding to coronal image 44 and sagittal image 34. The globes are intact and the visualized sinuses are clear. IMPRESSION: No acute intracranial hemorrhage or midline shift. Suspect evolving roughly 2.5 cm acute infarct high right parietal occipital region.
[2022-08-15] MEDS ORDERED: ALTEPLASE 69 MG in EMPTY BAG 1 BAG IV STA ×3 (12:27→12:30)
[2022-08-15] MEDS ORDERED: ALTEPLASE BOLUS FOR STROKE 8 MG in EMPTY SYRINGE 1 SYR IV STA (12:27)
[2022-08-15] MEDS ORDERED: Alteplase PER PHARMACY Stroke 1 EACH MISC MISCELLANE PRN (12:27)
[2022-08-15 12:30] LABS: Glucose,Whole Blood 119 mg/dL (70-110)
[2022-08-15 12:37] LABS: Albumin 4.8 g/dL (3.5-5.0); Calcium 9.5 mg/dL (8.4-10.2); Potassium 3.7 mmol/L (3.5-5.1); Total Bilirubin 0.7 mg/dL (0.2-1.3); Total Protein 7.9 g/dL (6.3-8.2)
--- NOTE | 2022-08-15 12:44 | ED ---
Neuro HPI - General Chief Complaint: Neuro Symptoms/Deficit Stated Complaint: stroke Time Seen by Provider: 08/15/22 12:06 Source: EMS Mode of arrival: EMS Limitations: no limitations - History of Present Illness Is the patient presenting with stroke symptoms?: Yes Last Known Well Date: 08/15/22 Last Known Well Time: 11:37 Initial Comments: 77-year-old female presents emergency department with stroke like symptoms. Family states that the patient was in the kitchen standing up against the counter. She had a sudden decrease in her mentation and her eyes rolled back in her head. Patient became flaccid on her left side. EMS was called. Onset of symptoms was around 11:38 AM. Patient was confused. No history of strokes. She is not on any blood thinners. No known head trauma. Upon arrival to the emergency department the patient does have some movement of the left side however it is diminished. She has dysphasia. No other alleviating, precipitating or modifying factors - Related Data Home Medications: Home Medications Medication Instructions Recorded Confirmed Aspirin 81 mg PO [facility] 04/09/17 08/15/22 Atorvastatin [Lipitor] 40 mg PO 04/09/17 08/15/22 Calcium Carbonate/Vitamin D3 1 tab PO DAILY 04/09/17 08/15/22 [Calcium 600-Vit D3 800 Tab] Fish Oil/Dha/Epa [Fish Oil 1,200 1 cap PO DAILY 04/09/17 08/15/22 mg Fish Oil] Levothyroxine Sodium [Synthroid] 25 mcg PO AC-BRKFST 04/09/17 08/15/22 atenoloL [Tenormin] 25 mg PO DAILY 04/09/17 08/15/22 calcitrioL [Rocaltrol] 0.25 mcg PO 04/09/17 08/15/22 hydroCHLOROthiazide [Hydrodiuril] 12.5 mg PO DAILY 04/09/17 08/15/22 Candesartan Cilexetil 8 mg PO 08/15/22 08/15/22 Ferrous Sulfate [Iron (65 MG 325 mg PO 08/15/22 08/15/22 Elemental)] Omeprazole [PriLOSEC] 10 mg PO DAILY 08/15/22 08/15/22 allopurinoL [Zyloprim] 100 mg PO DAILY 08/15/22 08/15/22 Previous Rx's Medication Instructions Recorded levETIRAcetam [Keppra] 500 mg PO Q12HR #60 tab 08/17/22 Allergies/Adverse Reactions: Allergies Allergy/AdvReac Type Severity Reaction Status Date / Time levofloxacin [From Levaquin] Allergy Rash/Hives Verified 08/15/22 14:54 proparacaine Allergy Unknown Verified 08/15/22 14:54 Sulfa (Sulfonamide Allergy Rash/Hives Verified 08/15/22 14:54 Antibiotics) codeine AdvReac Nausea & Verified 08/15/22 14:54 Vomiting Review of Systems ROS Statement: Those systems with pertinent positive or pertinent negative responses have been documented in the HPI. ROS Other: All systems not noted in ROS Statement are negative. General Exam Limitations: altered mental status General appearance: alert, anxious Head exam: Present: atraumatic, normocephalic, normal inspection Eye exam: Present: normal appearance ENT exam: Present: normal exam, mucous membranes moist Neck exam: Present: normal inspection. Absent: tenderness, meningismus, lymphadenopathy Respiratory exam: Present: normal lung sounds bilaterally. Absent: respiratory distress, wheezes, rales, rhonchi, stridor GI/Abdominal exam: Present: soft, normal bowel sounds. Absent: distended, tende rness, guarding, rebound, rigid Extremities exam: Present: other (4/5 stength left upper extremity. 2/5 strength lle. ) Neurological exam: Present: altered, other (answers 1/2 questions appropriately) Psychiatric exam: Present: anxious Stroke MDM - Lab Data Result diagrams: 08/17/22 09:09 08/16/22 06:58 Lab Results 08/15/22 08/15/22 08/15/22 Range/Units 12:13 12:13 12:13 WBC 10.7 H (3.8-10.6) k/uL RBC 4.87 (3.80-5.40) m/uL Hgb 15.2 (11.4-16.0) gm/dL Hct 46.5 H (34.0-46.0) % MCV 95.5 (80.0-100.0) fL MCH 31.1 (25.0-35.0) pg MCHC 32.6 (31.0-37.0) g/dL RDW 13.8 (11.5-15.5) % Plt Count 361 (150-450) k/uL MPV 7.5 Neutrophils % 49 % Lymphocytes % 40 % Monocytes % 6 % Eosinophils % 3 % Basophils % 1 % Neutrophils # 5.2 (1.3-7.7) k/uL Lymphocytes # 4.2 (1.0-4.8) k/uL Monocytes # 0.6 (0-1.0) k/uL Eosinophils # 0.3 (0-0.7) k/uL Basophils # 0.1 (0-0.2) k/uL PT 9.9 (9.0-12.0) sec INR 0.9 (<1.2) APTT 20.5 L (22.0-30.0) sec Sodium 136 L (137-145) mmol/L Potassium 3.7 (3.5-5.1) mmol/L Chloride 100 (98-107) mmol/L Carbon Dioxide 11 L (22-30) mmol/L Anion Gap 25 mmol/L BUN 16 (7-17) mg/dL Creatinine 1.14 H (0.52-1.04) mg/dL Est GFR (CKD-EPI)AfAm 54 (>60 ml/min/1.73 sqM) Est GFR (CKD-EPI)NonAf 47 (>60 ml/min/1.73 sqM) Glucose 133 H (74-99) mg/dL POC Glucose (mg/dL) (70-110) mg/dL POC Glu Document Control Assistant ID Estimated Ave Glu mg/dL Hemoglobin A1c (0.0-6.0) % Calcium 9.5 (8.4-10.2) mg/dL Total Bilirubin 0.7 (0.2-1.3) mg/dL AST 42 H (14-36) U/L ALT 43 H (4-34) U/L Alkaline Phosphatase 164 H (38-126) U/L Troponin I (0.000-0.034) ng/mL Total Protein 7.9 (6.3-8.2) g/dL Albumin 4.8 (3.5-5.0) g/dL 08/15/22 08/15/22 08/15/22 Range/Units 12:13 12:13 12:13 WBC (3.8-10.6) k/uL RBC (3.80-5.40) m/uL Hgb (11.4-16.0) gm/dL Hct (34.0-46.0) % MCV (80.0-100.0) fL MCH (25.0-35.0) pg MCHC (31.0-37.0) g/dL RDW (11.5-15.5) % Plt Count (150-450) k/uL MPV Neutrophils % % Lymphocytes % % Monocytes % % Eosinophils % % Basophils % % Neutrophils # (1.3-7.7) k/uL Lymphocytes # (1.0-4.8) k/uL Monocytes # (0-1.0) k/uL Eosinophils # (0-0.7) k/uL Basophils # (0-0.2) k/uL PT (9.0-12.0) sec INR (<1.2) APTT (22.0-30.0) sec Sodium (137-145) mmol/L Potassium (3.5-5.1) mmol/L Chloride (98-107) mmol/L Carbon Dioxide (22-30) mmol/L Anion Gap mmol/L BUN (7-17) mg/dL Creatinine (0.52-1.04) mg/dL Est GFR (CKD-EPI)AfAm (>60 ml/min/1.73 sqM) Est GFR (CKD-EPI)NonAf (>60 ml/min/1.73 sqM) Glucose (74-99) mg/dL POC Glucose (mg/dL) 119 H (70-110) mg/dL POC Glu Document Control Assistant DONA Pastor Xochitl Estimated Ave Glu mg/dL 124 Hemoglobin A1c 6.0 (0.0-6.0) % Calcium (8.4-10.2) mg/dL Total Bilirubin (0.2-1.3) mg/dL AST (14-36) U/L ALT (4-34) U/L Alkaline Phosphatase (38-126) U/L Troponin I <0.012 (0.000-0.034) ng/mL Total Protein (6.3-8.2) g/dL Albumin (3.5-5.0) g/dL - Medical Decision Making Upon arrival patient was completely placed into trauma bay 2. Thorough history and physical exam was performed. IV access is established. NIH is 9. Laboratory studies are conducted. Patient sent for a CT of the brain as well as CT angiography.. CT of the brain demonstrates no acute intracranial hemorrhage or midline shift. Suspected evolving 2.5 cm acute infarct high right parietal occipital region. I had discussed the case with Dr. Porter. He did recommend TPA administration with the high NIH. TPA was ordered. It was brought to bedside. Patient is reevaluated and does have improvement in her strokelike symptoms. Patient has equal interpreter for the deaf strength on the left side. Only residual d eficit is reported tongue numbness. Because of this I did call Dr. Mendez back - he does not recommend TPA. Stroke is seen on CT which is concerning that stroke has been present for longer than 30 minutes. I discussed the case with the patient's family - patient/patient's family refuses alteplase as risks outweigh benefits at this time. Patient is given an aspirin and a statin. Will be admitted for stroke with neuro consult. Patient was agreeable and admitted in stable condition EKG demonstrates sinus rhythm with a rate of 91. AL interval 212. QRS 90. QTC of 422. No acute ST segment elevations. Mild ST depression V3 through V6 08/15/22 14:56 Past Medical History Past Medical History: GERD/Reflux, Hyperlipidemia, Hypertension, Renal Disease, Thyroid Disorder Additional Past Medical History / Comment(s): states "has kidney failure 45 GFR" History of Any Multi-Drug Resistant Organisms: None Reported Past Surgical History: Orthopedic Surgery Additional Past Surgical History / Comment(s): tendon release rt wrist,juan cataract,finger surg Past Anesthesia/Blood Transfusion Reactions: Motion Sickness Past Psychological History: No Psychological Hx Reported Past Alcohol Use History: None Reported Past Drug Use History: None Reported - Past Family History Mother Family Medical History: No Reported History Father Family Medical History: No Reported History Course Vital Signs 08/15/22 08/15/22 08/15/22 12:10 12:20 12:30 Temperature 97.5 F L Pulse Rate 88 91 88 Respiratory 18 18 18 Rate Blood Pressure 157/90 146/78 143/70 O2 Sat by Pulse 95 96 95 Oximetry 08/15/22 08/15/22 08/15/22 12:45 13:00 13:30 Temperature Pulse Rate 86 84 81 Respiratory 18 18 18 Rate Blood Pressure 136/74 128/67 134/74 O2 Sat by Pulse 96 97 94 L Oximetry 08/15/22 08/15/22 08/15/22 14:00 14:30 15:00 Temperature 97.8 F Pulse Rate 79 74 77 Respiratory 16 18 18 Rate Blood Pressure 130/76 142/78 138/77 O2 Sat by Pulse 94 L 98 97 Oximetry 08/15/22 16:00 Temperature Pulse Rate 74 Respiratory 18 Rate Blood Pressure 142/78 O2 Sat by Pulse 98 Oximetry - Reevaluation(s) Reevaluation #1: Calling Dr. Mendez back as patient has improving symptoms - NIH 1 for dysarthria. 08/15/22 12:40 Critical Care Time Critical Care Time: Yes Critical Care Time: 35 minutes Disposition Clinical Impression: Cerebrovascular accident (CVA) Disposition: ADMITTED IP TO THIS [facility] Condition: Serious Is patient prescribed a controlled substance at d/c from ED?: No Time of Disposition: 14:30 Decision to Admit Reason: Admit from EC Decision Date: 08/15/22 Decision Time: 14:30
[2022-08-15 12:47] LABS: INR 0.9 (<1.2); Prothrombin Time 9.9 sec (9.0-12.0)
[2022-08-15] MEDS ORDERED: ONDANSETRON 4 MG/2 ML VIAL IVP STA (12:48)
[2022-08-15 13:00] LABS: Partial Thromboplastin Time 20.5 sec (22.0-30.0)
--- NOTE | 2022-08-15 13:02 | CT ---
EXAMINATION TYPE: CT angio head neck DATE OF EXAM: 08/15/2022 HISTORY: Neuro deficits acute onset, code stroke. COMPARISON: None. CT DLP: 546 mGycm. Automated Exposure Control for Dose Reduction was Utilized. TECHNIQUE: CTA scan of the head and neck is performed with IV Contrast, patient injected with 65 mL of Isovue 370, axial images are obtained, coronal and sagittal reformatted images are reviewed. 3D re constructed images are created on an independent workstation and reviewed. FINDINGS: Carotid/Vascular Structures: There is normal 3 vessel origin from the aortic arch. There is no signif icant plaque or stenosis in the arch or at origin of the 3 great vessels. Normal origin right common carotid artery from the right brachiocephalic artery. Some tortuous course to the proximal common car otid arteries bilaterally. No significant plaque or stenosis in the common or internal carotid arteri es including a level of bilateral carotid bulbs. Patent external carotid arteries bilaterally without significant plaque or stenosis. Codominant vertebral arteries patent to the basilar junction. Hypoplastic bilateral posterior communi cating arteries. No significant focal stenosis or aneurysmal posterior circulation. Patent anterior c ommunicating artery is seen. There is no significant focal stenosis or aneurysm in the anterior circu lation. Other: Thyroid gland somewhat small in size. There is levoconvex scoliosis centered in the upper to m id thoracic spine seen. Cardiomegaly is likely present with at least mild to moderate biatrial dilata tion. IMPRESSION: No significant stenosis in common or internal carotid arteries bilaterally. No significa nt stenosis or aneurysm at the level of the [place]. NASCET criteria was used in interpretation of this exam?
[2022-08-15] MEDS ORDERED: ASPIRIN 325 MG TAB PO STA (13:12)
[2022-08-15] MEDS ORDERED: SODIUM CHLORIDE 0.9% 50 ML MINI-BAG IV ONE (13:28)
--- NOTE | 2022-08-15 13:42 | XR ---
EXAMINATION TYPE: XR chest 2V DATE OF EXAM: 08/15/2022 1:36 PM COMPARISON: None TECHNIQUE: XR chest 2V Frontal and lateral views of the chest. CLINICAL INDICATION:Female, 77 years old with history of altered mental status; FINDINGS: Lungs/Pleura: There is no evidence of pleural effusion, focal consolidation, or pneumothorax. Pulmonary vascularity: Unremarkable. Heart/mediastinum: Cardiomediastinal silhouette is unremarkable. Musculoskeletal: No acute osseous pathology. IMPRESSION: No acute cardiopulmonary disease/process.
[2022-08-15] MEDS: SODIUM CHLORIDE 0.9% 1,000 ML IV SCH (16:52)
--- NOTE | 2022-08-15 16:52 | US ---
EXAMINATION TYPE: US carotid duplex BILAT DATE OF EXAM: 08/15/2022 COMPARISON: CTa 08/15/22 CLINICAL HISTORY: stroke. Stroke per order. Left-sided weakness and facial drooping. Hx hypertension, hyperlipidemia. TECHNIQUE: Carotid duplex ultrasound examination. Indirect Doppler criteria was utilized. FINDINGS: EXAM MEASUREMENTS: RIGHT: Peak Systolic Velocity (PSV) cm/sec ----- Right CCA: 67.7 ----- Right ICA: 72.1 ----- Right ECA: 72.9 ICA/CCA ratio: 1.1 RIGHT: End Diastole cm/sec ----- Right CCA: 15.4 ----- Right ICA: 11.9 ----- Right ECA: 0.0 LEFT: Peak Systolic Velocity (PSV) cm/sec ----- Left CCA: 86.6 ----- Left ICA: 78.2 ----- Left ECA: 55.2 ICA/CCA ratio: 0.9 LEFT: End Diastole cm/sec ----- Left CCA: 19.3 ----- Left ICA: 21.5 ----- Left ECA: 0.0 VERTEBRALS (direction of flow): Right Vertebral: Antegrade Left Vertebral: Antegrade Rhythm: Normal SLEEPING ROOM CLEANER NOTES: Intimal thickening seen bilaterally. No elevated velocities at this time. IMPRESSION: There is antegrade flow in the vertebral arteries. The images and measurements suggest less than 15% stenosis in both internal carotid arteries. Criteria for Assigning % of Stenosis / Diameter reduction (Estimation based on the indirect measurements of the internal carotid artery velocities (ICA PSV). 1. Normal (no stenosis)=ICA PSV < 125 cm/s: ratio < 2.0: ICA EDV<40 cm/s. 2. Less than 50% stenosis=ICA PSV < 125 cm/s: ratio < 2.0: ICA EDV<40 cm/s. 3. 50 to 69% stenosis=ICA PSV of 125 to 230 cm/s: ration 2.0 ? 4.0: ICA EDV 40-100 cm/s. 4. Greater than 70% stenosis to near occlusion= ICA PSV > 230 cm/s: ratio > 4.0: ICA EDV > 100 cm/s. 5. Near occlusion= ICA PSV velocities may be low or undetectable: variable ratio and ICA EDV. 6. Total occlusion=unable to detect flow.
--- NOTE | 2022-08-15 17:05 | P.CNNES ---
History of Present Illness Consult date: 08/15/22 Requesting physician: Meggan Small Reason for Consult: Acute CVA History of Present Illness: Patient is a 77-year-old female with history of hypertension, hyperlipidemia, thyroid disorder came to the hospital by ambulance for acute onset of focal symptoms. Patient states that she was sitting on the barstool in her kitchen. At around 11:38 AM, she got up and noticed her left leg was numb and weak and she started falling. Apparently her lowered her to the ground. Patient remembers her left leg became stiff and was shaking. Then she does not remember what happened, and the next thing she remembers is waking up in the ER. She came in the ambulance and does not remember at all the ambulance ride to the hospital. As per EMS flow sheet when they arrived, patient was laying on the ground with slurred speech, right upward gaze and left hemiparesis. No report of any seizure-like activity in the EMS flow sheet. Patient's blood pressure at the scene was 200/100, which improved to 166/74. Pulse rate 90, respirations 16. Saturation 95%. Vital signs on arrival blood pressure 157/90, with temperature 97.5. Blood test shows WBC 10.7, hemoglobin 15.2, normal platelets. Sodium 136 potassium 3.7, BUN 16, creatinine 1.14. AST 42, ALT 43 minimally elevated. Troponin is negative. CT head revealed no acute intracranial hemorrhage. Suspect evolving roughly 2.5 cm acute infarct right parietal occipital region. I personally reviewed CT head, agree with the findings. Patient's symptoms are acute. However the hypodensity appears subacute, therefore underlying mass lesion cannot be ruled out. CTA of head showed no significant stenosis and, in or internal carotid arteries bilaterally. No significant stenosis or aneurysm at the level of [place]. Chest x-ray showed no acute cardiac or disease. EKG with sinus rhythm with first-degree AV block. Carotid Doppler revealed antegrade flow in the vertebral arteries. Images suggest less than 15% stenosis of both ICA. Stroke code was activated in the ED. Patient's NIH stroke scale reported as 9. ED staff discuss case with stroke neurologist Dr. Holguin, who recommended TPA. However after patient returned back from CT/CTA, she was much improved with NIH stroke scale down to 1. TPA was held at that point, also to the matter of fact, that her CT head showed subacute hypodensity, suggestive of stroke of subacute nature rather than acute. Patient denies any history of seizures or stroke. Denies any history of diabetes. She does have hypertension. She has never smoked. She drinks alcohol very rarely, on occasions about 2 or 3 times a year. Patient states that she takes aspirin 81 mg twice a week, every Friday and Friday. Review of Systems Constitutional: Denies chills, Denies fever Eyes: denies blurred vision, denies loss of vision Ears: deny: earache Ears, nose, mouth and throat: Denies headache, Denies sore throat Cardiovascular: Denies chest pain, Denies shortness of breath Respiratory: Denies cough Gastrointestinal: Denies abdominal pain, Denies diarrhea, Denies nausea, Denies vomiting Genitourinary: Denies dysuria, Denies hematuria Musculoskeletal: Denies myalgias Integumentary: Denies pruritus, Denies rash Neurological: Reports as per HPI Psychiatric: Denies anxiety, Denies depression Endocrine: Denies fatigue, Denies weight change Hematologic/Lymphatic: Denies easy bruising Allergic/Immunologic: Denies persistent infections Past Medical History Past Medical History: GERD/Reflux, Hyperlipidemia, Hypertension, Renal Disease, Thyroid Disorder Additional Past Medical History / Comment(s): states "has kidney failure 45 GFR" History of Any Multi-Drug Resistant Organisms: None Reported Past Surgical History: Orthopedic Surgery Additional Past Surgical History / Comment(s): tendon release rt wrist,juan cataract,finger surg Past Anesthesia/Blood Transfusion Reactions: Motion Sickness Past Psychological History: No Psychological Hx Reported Past Alcohol Use History: None Reported Past Drug Use History: None Reported - Past Family History Mother Family Medical History: No Reported History Father Family Medical History: No Reported History Medications and Allergies Home Medications Medication Instructions Recorded Confirmed Type Aspirin 81 mg PO TUFR 04/09/17 08/15/22 History Atorvastatin [Lipitor] 40 mg PO HS 04/09/17 08/15/22 History Calcium Carbonate/Vitamin D3 1 tab PO DAILY 04/09/17 08/15/22 History [Calcium 600-Vit D3 800 Tab] Fish Oil/Dha/Epa [Fish Oil 1,200 1 cap PO DAILY 04/09/17 08/15/22 History mg Fish Oil] Levothyroxine Sodium [Synthroid] 25 mcg PO AC-BRKFST 04/09/17 08/15/22 History atenoloL [Tenormin] 25 mg PO DAILY 04/09/17 08/15/22 History calcitrioL [Rocaltrol] 0.25 mcg PO TU 04/09/17 08/15/22 History hydroCHLOROthiazide [Hydrodiuril] 12.5 mg PO DAILY 04/09/17 08/15/22 History Candesartan Cilexetil 8 mg PO 08/15/22 08/15/22 History Ferrous Sulfate [Feosol] 325 mg PO TU 08/15/22 08/15/22 History Omeprazole [PriLOSEC] 10 mg PO DAILY 08/15/22 08/15/22 History allopurinoL [Zyloprim] 100 mg PO DAILY 08/15/22 08/15/22 History Allergies Allergy/AdvReac Type Severity Reaction Status Date / Time levofloxacin [From Levaquin] Allergy Rash/Hives Verified 08/15/22 14:54 proparacaine Allergy Unknown Verified 08/15/22 14:54 Sulfa (Sulfonamide Allergy Rash/Hives Verified 08/15/22 14:54 Antibiotics) codeine AdvReac Nausea & Verified 08/15/22 14:54 Vomiting Physical Examination - Vital Signs Vital Signs: Vital Signs Temp Pulse Resp BP Pulse Ox 08/15/22 14:30 74 18 142/78 98 08/15/22 12:45 86 18 136/74 96 08/15/22 12:30 88 18 143/70 95 08/15/22 12:20 91 18 146/78 96 08/15/22 12:10 97.5 F L 88 18 157/90 95 Intake and Output 08/15/22 08/15/22 08/15/22 06:59 14:59 22:59 Other: Weight 84.64 kg Patient is an elderly female, in no acute distress. Patient is alert awake oriented to time place and person. Speech and language functions are normal. Patient can name and repeat very well. No aphasia or dysarthria. Attention, concentration and fund of knowledge is adequate. On cranial nerve examination, pupils are equal, round and reacting to light, visual romero are full on confrontation, with no neglect on double simultaneous depression. Extraocular muscles are intact with no nystagmus. Face is symmetric, tongue protrudes to the midline. Palatal elevation and sensation normal, hearing and shoulder shrug normal, facial sensation normal. On muscle strength testing, there is no pronator drift and the strength is n ormal in arms and legs distally and proximally. Deep tendon reflexes are symmetric trace at the biceps, 1 brachioradialis, 1+ at the knees 1 ankles and plantars downgoing bilaterally. Sensory to touch is equal with no neglect on double simultaneous stimulation. Cerebellar function showed no ataxia for [id number] testing. No dysdiadochokinesia. No ataxia for [id number] testing on either side. Tone and bulk of muscles normal. Gait deferred.. On general examination, there is no carotid bruit or murmur, S1-S2 audible. Chest is clear on consultation. Abdomen is soft nontender. No organomegaly, bowel sounds present. Peripheral pulses are present. No edema. Results - Laboratory Findings CBC and BMP: 08/15/22 12:13 08/15/22 12:13 Abnormal Lab Findings: Abnormal Labs 08/15/22 08/15/22 08/15/22 12:13 12:13 12:13 WBC 10.7 H Hct 46.5 H APTT 20.5 L Sodium 136 L Carbon Dioxide 11 L Creatinine 1.14 H Glucose 133 H POC Glucose (mg/dL) AST 42 H ALT 43 H Alkaline Phosphatase 164 H 08/15/22 12:13 WBC Hct APTT Sodium Carbon Dioxide Creatinine Glucose POC Glucose (mg/dL) 119 H AST ALT Alkaline Phosphatase Assessment and Plan Assessment: * 77-year-old female, presenting with transient left hemiparesis that now has completely resolved. Computed tomography scan of the head showed hypodensity in the right [place] territory in the posterior frontal region. Patient also had some focal tonic clonic activity of the left leg, with significant period of amnesia. Patient does not remember being transported from her home to the hospital (EMS ride). Rule out stroke TIA, rule out focal seizure with postictal William's paralysis. Patient's NIH stroke scale was reportedly 9 in the ER, but is 0 at this time. Patient did not receive TPA in the ER. * Abnormal CT head with evidence of hypodensity right posterior frontal region, rule out underlying mass lesion versus subacute stroke * hypertension Plan: * MRI of brain with and without contrast evaluate for an acute stroke * 2-D echo with bubble study to rule out PFO * Fasting a.m. lipid panel, hemoglobin A1c * EEG rule out focal epileptiform activity. * Patient has been started on aspirin 325 mg, which will be continued. * Telemetric monitoring * DVT prophylaxis: Patient on heparin 5000 unit subcu every 12 hours * Continue close neuro checks. * Neurology will follow. Thank you for the consult Time with Patient: Greater than 30
[2022-08-15] MEDS: ATORVASTATIN 40 MG TAB PO SCH (17:19)
[2022-08-15] MEDS: HEPARIN SODIUM,PORCINE/PF 5,000 UNIT/0.5 ML SYRINGE SQ SCH (20:20)
[2022-08-15] MEDS: LOSARTAN 50 MG TAB PO SCH (20:20)
--- NOTE | 2022-08-16 03:03 | HP ---
HISTORY AND PHYSICAL CHIEF COMPLAINTS: Weakness of left side and dysarthria and stroke. HISTORY OF PRESENT ILLNESS: This is a 77-year-old woman with a past medical history of multiple medical problems including hypertension, hyperlipidemia, being followed by Dr. Dave Briones in the outpatient. The patient was noted to have weakness of the left side of the body and also some dysarthria. EMS was called. Apparently, the Stroke Scale score was high, but by the time the patient reached the hospital, the score was improved and not only that, the CT scan of the brain showed possibly evolving stroke in the right parieto- occipital area. The Stroke Team and Neurointensive Team were called and it was decided not to give any tPA. The patient presented for evaluation and treatment. Currently, the patient is also complaining of some minimal weakness of the left side and as well as some numbness of the tongue. There is no history of any fever, rigors, or chills. PAST MEDICAL HISTORY: Reviewed, include hypertension and hyperlipidemia. HOME MEDICATIONS: Reviewed include HydroDIURIL, doses and rest of medications noted. ALLERGIES: Reviewed include Levaquin. FAMILY HISTORY: No history of heart disease or strokes in the family. SOCIAL HISTORY: No history of smoking or alcohol. REVIEW OF SYSTEMS: A 14-point review of systems is negative except as mentioned earlier. PHYSICAL EXAMINATION: VITAL SIGNS: Pulse is 86, blood pressure 130/74, respirations 18. HEENT: Conjunctivae normal. NECK: No JVD. CARDIOVASCULAR: S1, S2 muffled. RESPIRATIONS: Breath sounds diminished at the bases. No rhonchi. No crackles. ABDOMEN: Soft, nontender. No mass palpable. LEGS: No edema. No swelling. NERVOUS SYSTEM: Minimal weakness of the left side of the body, otherwise some numbness of the tongue. No weakness noted. Gait, not tested. SKIN: No rashes. JOINTS: No active deforming arthropathy. LYMPHATICS: No lymph node palpable in neck, axillae or groin. LABS: Reviewed. ASSESSMENT: 1. Acute stroke involving the right parieto-occipital region causing left-sided weakness. 2. Hypertension. 3. Hyperlipidemia. 4. Gastroesophageal reflux disease. 5. Multiple medical issues. RECOMMENDATIONS AND DISCUSSION: This is a 77-year-old woman who presented with multiple complex medical issues. At this time, I recommend antiplatelet agents. Neurology evaluation. Complete neurovascular workup. Neuro checks. The patient's home medication will continue. DVT prophylaxis. PT, OT evaluation. Prognosis guarded because of multiple complex medical issues. Discussed with the patient and family, the and daughter at the bedside and understands. Further recommendations to follow. DEREK / PING: [id number] /
[2022-08-16] MEDS: SODIUM CHLORIDE 0.9% 1,000 ML IV SCH ×3 (06:20→21:57)
[2022-08-16] MEDS: LEVOTHYROXINE 25 MCG TAB PO SCH (06:30)
[2022-08-16] MEDS: PANTOPRAZOLE 40 MG TABLET PO SCH (06:30)
[2022-08-16 07:31] LABS: Basophils % (A) 0 %; Eosinophils # (A) 0.1 k/uL (0-0.7); Eosinophils % (A) 1 %; HGB 13.3 gm/dL (11.4-16.0); Lymphocytes # (A) 2.5 k/uL (1.0-4.8); Lymphocytes % (A) 25 %; MCH 30.3 pg (25.0-35.0); MCHC 32.3 g/dL (31.0-37.0); MCV 93.7 fL (80.0-100.0); Mean Platelet Volume 7.3; Monocytes # (A) 0.6 k/uL (0-1.0); Monocytes % (A) 6 %; Neutrophils # (A) 6.6 k/uL (1.3-7.7); Neutrophils % (A) 67 %; Platelet Count 275 k/uL (150-450); RBC 4.38 m/uL (3.80-5.40); RDW 14.3 % (11.5-15.5); WBC 9.9 k/uL (3.8-10.6)
[2022-08-16 08:02] LABS: African American GFR (CKD) 61 (>60 ml/min/1.73 sqM); Anion Gap 8 mmol/L; Blood Urea Nitrogen 11 mg/dL (7-17); Calcium 8.8 mg/dL (8.4-10.2); Carbon Dioxide 25 mmol/L (22-30); Chloride 102 mmol/L (98-107); Glucose 87 mg/dL (74-99); Non-African American GFR(CKD) 53 (>60 ml/min/1.73 sqM); Potassium 4.1 mmol/L (3.5-5.1); Sodium 135 mmol/L (137-145)
[2022-08-16] MEDS: ASPIRIN 325 MG TAB PO SCH (08:46)
[2022-08-16] MEDS: CALCIUM CARB-VIT D 500 MG-5 MCG TAB PO SCH (08:46)
[2022-08-16] MEDS: ATORVASTATIN 40 MG TAB PO SCH (08:46)
[2022-08-16] MEDS: atenoloL 25 MG TAB PO SCH (08:46)
[2022-08-16] MEDS: HEPARIN SODIUM,PORCINE/PF 5,000 UNIT/0.5 ML SYRINGE SQ SCH ×2 (08:47→20:09)
[2022-08-16] MEDS ORDERED: hydroCHLOROthiazide 12.5 MG CAP PO SCH (09:00)
[2022-08-16 10:51] LABS: Chol/HDL Ratio 3.99 Ratio; LDL Cholesterol,Calculated 96.1 mg/dL (0.0-131.0)
--- NOTE | 2022-08-16 11:00 | CA ---
Transthoracic Echo Report Name: Yari Dsouza Age: 77 Gender: F : 1945 Exam Date: 08/16/2022 08:32 Exam Location: [facility] Ht (in): 64 Wt (lb): 186 Ordering Physician: Isis Armendariz MD Attending/Referring Phys: Broacher Rhoda Cunningham RDCS Procedure CPT: Indications: stroke Cardiac Hx: Technical Quality: Good Contrast 1: Total Dose (mL): Contrast 2: Total Dose (mL): MEASUREMENTS (Male / Female) Normal Values 2D ECHO LV Diastolic Diameter PLAX 4.1 cm 4.2 - 5.9 / 3.9 - 5.3 cm LV Systolic Diameter PLAX 3.1 cm IVS Diastolic Thickness 1.3 cm 0.6 - 1.0 / 0.6 - 0.9 cm LVPW Diastolic Thickness 1.2 cm 0.6 - 1.0 / 0.6 - 0.9 cm LV Relative Wall Thickness 0.6 RV Internal Dim ED PLAX 3.0 cm LA Systolic Diameter LX 3.2 cm 3.0 - 4.0 / 2.7 - 3.8 cm LA Volume 47.3 cm??? 18 - 58 / 22 - 52 cm??? M-MODE Aortic Root Diameter MM 2.4 cm MV E Point Septal Separation 0.3 cm AV Cusp Separation MM 1.8 cm DOPPLER AV Peak Velocity 136.4 cm/s AV Peak Gradient 7.4 mmHg MV Area PHT 3.8 cm??? Mitral E Point Velocity 86.9 cm/s Mitral A Point Velocity 100.9 cm/s Mitral E to A Ratio 0.9 MV Deceleration Time 199.9 ms MV E' Velocity 7.4 cm/s Mitral E to MV E' Ratio 11.7 FINDINGS Left Ventricle Left ventricular ejection fraction is estimated at 60-65 %. Left ventricular cavity size normal. Mild concentric left ventricular hypertrophy. Right Ventricle Normal right ventricular size and function. Unable to estimate the right ventricular systolic pressure. Right Atrium Normal right atrial size. Left Atrium Normal left atrial size. No evidence for an atrial septal defect. Mitral Valve Mitral valve thickened. Trace mitral regurgitation. Aortic Valve Trileaflet aortic valve. No aortic valve stenosis or regurgitation. Tricuspid Valve Structurally normal tricuspid valve. Pulmonic Valve Structurally normal pulmonic valve. Pericardium Normal pericardium. No pericardial effusion. Aorta Normal size aortic root and proximal ascending aorta. CONCLUSIONS Normal left ventricular dimension and systolic function Previewed by: Dr. Claude Pan MD (Electronically Signed) Final Date: 16 August 2022 11:00
--- NOTE | 2022-08-16 12:37 | MR ---
EXAMINATION TYPE: MR brain wo/w con DATE OF EXAM: 08/16/2022 COMPARISON: CT brain 08/15/2022 HISTORY: Right frontal lesion, subacute CVA versus mass, Left leg weakness/rigid, AMS, loss of speech CONTRAST: Performed utilizing 8 mL intravenous Gadavist gadolinium contrast. TECHNIQUE: Multiplanar, multiecho imaging on a 3.0 Rosibel magnet is performed through the brain. Stud y is performed within 24 hours of arrival to the hospital. The craniovertebral junction is normal. The pituitary is normal. Diffusion-weighted imaging is performed. No abnormal hyperintensity is present to suggest an acute i ntracranial infarct or acute ischemic change. There are some scattered white matter changes within the brainstem can be compatible with chronic whi te matter ischemic type changes. There is diffuse increased signal through the right thalamus not evident on the diffusion-weighted im aging. This could suggest underlying chronic white matter changes. This area appears hypointense on t he post gadolinium study may be subacute or old ischemic area. Subtle minimal prominence compared to the contralateral side within this region may be present. There is hyperintensity within the right posterior parietal occipital vertex may be an old cortical i schemic change. This area was identified on the 08/15/2022 exam. The hyperintensity on diffusion throu gh this region. Ventricles and sulci are appropriate for the patient age. IMPRESSIONS: 1. Old appearing ischemic changes through the right parietal occipital vertex. Additional signal laguna ge through the right thalamus suggest subacute or old change. 2. Acute ischemic changes are not identified.
--- NOTE | 2022-08-16 13:58 | P.PN ---
Subjective Progress Note Date: 08/16/22 This is a 77 -year-old female who was recently admitted with left-sided weakness and also some dysarthria and being closely monitored. Neurology along with cardiology consulted and following and undergoing neurological workup. Patient was not a candidate for TPA. Patient is scheduled to undergo MRI of the brain today and 2-D echo which is currently pending. Patient is afebrile denies chest pain or shortness of breath. EEG was also taken and currently pending at this time. Awaiting PT/OT evaluation along with speech and will continue to neurological workup. Patient with no reports of nausea or vomiting and is tolerating diet. Review of systems: Constitutional: No reports of fatigue, fever, or chills Cardiovascular: No reports of chest pain or palpitations Respiratory: No reports of shortness of breath or cough GI: No reports of nausea, no reports of of vomiting, no reports of diarrhea : No reports of dysuria or retention Neurovascular: reports of generalized weakness All medications have been reviewed Active Medications Aspirin (Aspirin 325 Mg Tab) 325 mg PO DAILY [facility] Last Admin: 08/16/22 08:46 Dose: 325 mg Atenolol (Atenolol 25 Mg Tab) 25 mg PO DAILY [facility] Last Admin: 08/16/22 08:46 Dose: 25 mg Atorvastatin Calcium (Atorvastatin 40 Mg Tab) 40 mg PO DAILY [facility] Last Admin: 08/16/22 08:46 Dose: 40 mg Calcitriol (Calcitriol 0.25 Mcg Cap) 0.25 mcg PO [facility] Calcium Carbonate (Calcium Carb-Vit D 500 Mg-5 Mcg Tab) 1 each PO DAILY [facility] Last Admin: 08/16/22 08:46 Dose: 1 each Heparin Sodium (Porcine) (Heparin Sodium,Porcine/Pf 5,000 Unit/0.5 Ml Syringe) 5,000 unit SQ Q12HR [facility] Last Admin: 08/16/22 08:47 Dose: 5,000 unit Hydrochlorothiazide (Hydrochlorothiazide 12.5 Mg Cap) 12.5 mg PO DAILY [facility] Last Admin: 08/16/22 08:46 Dose: 12.5 mg Sodium Chloride (Saline 0.9%) 1,000 mls @ 100 mls/hr IV .Q10H [facility] Last Admin: 08/16/22 06:20 Dose: Not Given Levothyroxine Sodium (Levothyroxine 25 Mcg Tab) 25 mcg PO AC-BRKFST [facility] Last Admin: 08/16/22 06:30 Dose: 25 mcg Losartan Potassium (Losartan 50 Mg Tab) 50 mg PO [facility] Last Admin: 08/15/22 20:20 Dose: Not Given Pantoprazole Sodium (Pantoprazole 40 Mg Tablet) 40 mg PO AC-BRKFST [facility] Last Admin: 08/16/22 06:30 Dose: 40 mg PHYSICAL EXAMINATION: GENERAL: The patient is alert and oriented x4, Well developed, well nourished. Obese. HEENT: Pupils are round and equally reacting to light. EOMI. no scleral icterus. No conjunctival pallor. Normocephalic, atraumatic. No pharyngeal erythema. No thyromegaly. CARDIOVASCULAR: S1 and S2 muffled PULMONARY: diminished breath sounds bilaterally with no wheezing or rhonchi noted. ABDOMEN: soft. Nontender on exam. obese. non-distended, normoactive bowel sounds. No palpable organomegaly. MUSCULOSKELETAL: No joint swelling or deformity. EXTREMITIES: No cyanosis, clubbing, or pedal edema. NEUROLOGICAL: Gross neurological examination did not reveal any focal deficits. Diffuse weakness SKIN: No rashes. Assessment: Acute stroke involving the right parietal occipital region causing left-sided weakness Hypertension Hyperlipidemia Gastroesophageal reflux disease History of renal disease Hypothyroidism GI prophylaxis DVT prophylaxis Full code Plan: Recommend to continue with current medications and management with neurology and cardiology following. Patient underwent MRI of the brain today which shows old appearing ischemic changes through the right parietal occipital vertex with additional signal change to the right thalamus suggest subacute or old change with acute ischemic changes not being identified. Patient also underwent 2-D echo which shows normal LV systolic dysfunction with an EF of 60-65% with a trace of mitral regurgitation with no pericardial effusion noted. Carotid Do ppler was done suggestive of less than 15% stenosis in both internal carotid arteries. Patient is currently maintained on aspirin and statin and other blood pressure medications and will continue on subcutaneous heparin for DVT prophylaxis. Awaiting PT/OT evaluation and also awaiting EEG report. Consult speech as well. Recommend repeat labs and will continue to monitor the patient closely. Due to multiple complex medical issues, prognosis is guarded. The impression and plan of care has been dictated by Светлана Jackson, nurse practitioner as directed. Dr. Marcello MD I have performed a history and examination and MDM of this patient, discussed the same with the dictator, and agree with the dictator's assessment and plan as written ,documented as a scribe. Based on total visit time, I have performed more than 50% of the visit. Any additional findings or plans will be noted. Objective - Vital Signs Vital signs: Vital Signs Temp 97.8 F 08/16/22 08:51 Pulse 65 08/16/22 08:51 Resp 16 08/16/22 08:51 BP 133/77 08/16/22 08:51 Pulse Ox 95 08/16/22 08:51 FiO2 Intake & Output 08/15/22 08/16/22 08/16/22 18:59 06:59 18:59 Intake Total 118 1620 240 Balance 118 1620 240 Weight 84.64 kg Intake: Intake, IV Titration 900 Amount Sodium Chloride 0.9% 1, 900 000 ml @ 100 mls/hr IV . Q10H [facility] Rx#:[id number] Oral 118 720 240 Other: Voiding Method Toilet Toilet Toilet # Voids 3 - Labs CBC & Chem 7: 08/16/22 06:58 08/16/22 06:58 Labs: Abnormal Lab Results - Last 24 Hours (Table) 08/15/22 08/15/22 08/15/22 Range/Units 12:13 12:13 12:13 WBC 10.7 H (3.8-10.6) k/uL Hct 46.5 H (34.0-46.0) % APTT 20.5 L (22.0-30.0) sec Sodium 136 L (137-145) mmol/L Carbon Dioxide 11 L (22-30) mmol/L Creatinine 1.14 H (0.52-1.04) mg/dL Glucose 133 H (74-99) mg/dL POC Glucose (mg/dL) (70-110) mg/dL AST 42 H (14-36) U/L ALT 43 H (4-34) U/L Alkaline Phosphatase 164 H (38-126) U/L Triglycerides (0.00-149.00) mg/dL 08/15/22 08/16/22 Range/Units 12:13 06:58 WBC (3.8-10.6) k/uL Hct (34.0-46.0) % APTT (22.0-30.0) sec Sodium 135 L (137-145) mmol/L Carbon Dioxide (22-30) mmol/L Creatinine (0.52-1.04) mg/dL Glucose (74-99) mg/dL POC Glucose (mg/dL) 119 H (70-110) mg/dL AST (14-36) U/L ALT (4-34) U/L Alkaline Phosphatase (38-126) U/L Triglycerides 160.00 H (0.00-149.00) mg/dL
[2022-08-16] MEDS: LOSARTAN 50 MG TAB PO SCH (20:09)
[2022-08-16] MEDS: levETIRAcetam 500 MG TAB PO SCH (20:09)
--- NOTE | 2022-08-17 02:45 | EEG ---
DATE OF SERVICE: 08/16/2022 ELECTROENCEPHALOGRAM REPORT PREAMBLE: This is a 77-year-old female with new onset seizure like activity. EEG FINDINGS: This is a 21-channel digital EEG recorded with video component, utilizing 10/20 international system with referential and bipolar montages. Background consists of well developed, well regulated, oli-be-[id number] voltage activity in 10 to 11 hertz alpha. Background is posterior dominant and reactive to eye opening and closing. Some fast frequency beta was seen in the frontal region. Photic driving response was seen with almost all flash frequencies. Some drowsiness was seen with appearance of bilaterally symmetric theta frequency rhythm. Deeper stages of sleep were not seen. No focal or generalized epileptiform activity was seen. IMPRESSION: This is a normal awake and drowsy EEG. No focal, lateralized, or epileptiform activity was seen. MMBARAK / ABDIN: [id number] / MTDD
[2022-08-17] MEDS: LEVOTHYROXINE 25 MCG TAB PO SCH (06:27)
[2022-08-17] MEDS: PANTOPRAZOLE 40 MG TABLET PO SCH (06:28)
[2022-08-17] MEDS: SODIUM CHLORIDE 0.9% 1,000 ML IV SCH (06:33)
--- NOTE | 2022-08-17 08:00 | P.PN ---
Subjective Progress Note Date: 08/16/22 Patient was seen for a follow-up. Patient's daughter and were also present today. Patient denies any focal symptoms. Denies any headache. Denies any focal symptoms. Apparently patient's witnessed that event. He mentioned that he remembers patient going down to the floor. On the floor patient's left leg was twitching, she could communicate well. Then she started trembling all over and then she was "out of it". Patient states that she does remember herself being on the floor and noticed her left leg was jerking real hard, and the right leg was also slightly shaking, but not as hard, and then she started shaking all over and then she does not remember what happened. Apparently patient did bite her tongue fairly hard. No loss of control of urine. Patient denies any history of cancers. Telemetry monitoring showing sinus rhythm, with bundle branch block. No other arrhythmia. Objective - Vital Signs Vital signs: Vital Signs Temp 97.8 F 08/16/22 08:51 Pulse 65 08/16/22 08:51 Resp 16 08/16/22 08:51 BP 133/77 08/16/22 08:51 Pulse Ox 95 08/16/22 08:51 FiO2 Intake & Output 08/15/22 08/16/22 08/16/22 18:59 06:59 18:59 Intake Total 118 1620 240 Balance 118 1620 240 Weight 84.64 kg Intake: Intake, IV Titration 900 Amount Sodium Chloride 0.9% 1, 900 000 ml @ 100 mls/hr IV . Q10H [facility] Rx#:[id number] Oral 118 720 240 Other: Voiding Method Toilet Toilet Toilet # Voids 3 - Exam Mental status, speech and language functions are normal. Face is symmetric. Tongue protrudes the midline. Evidence of oral trauma from previous seizure. Muscle strength is normal. No ataxia. - Labs CBC & Chem 7: 08/16/22 06:58 08/16/22 06:58 Labs: Abnormal Lab Results - Last 24 Hours (Table) 08/16/22 Range/Units 06:58 Sodium 135 L (137-145) mmol/L Triglycerides 160.00 H (0.00-149.00) mg/dL Assessment and Plan Assessment: * New onset seizure, unclear etiology. * Transient left hemiparesis, likely due to postictal William's paralysis, weakness has resolved. * Abnormal brain MRI with evidence of abnormal signal in the right basal ganglia, and left parietal cortex in the ARIADNE territory. * Hypertension Plan: * MRI of brain with and without contrast was performed, which reported old- appearing ischemic changes through the right parietal occipital vertex. Additional signal change to the right thalamus suggest subacute or old change. Acute ischemic changes are not identified. I personally reviewed MRI of the brain and also reviewed it with another radiologist Dr. Loving. Apparently there is an abnormal signal in the right parietal cortex near the vertex in ARIADNE territory. There is a very large abnormal FLAIR signal also in the right is ganglia mainly centered in the thalamus. This does not follow any vascular territory therefore is not vascular in nature. Rule out inflammatory/demyelinating cause, vs neoplastic cause. Apparently the lesion mainly involves ayala matter, concerning for glioma. Apparently there is no contrast enhancement therefore inflammatory process somewhat less likely. Low-grade glioma is a possibility, but would be unlikely to involve 2 different regions of the brain unless his multifocal glioma. Patient needs further workup at this point. * Discussed with patient about next step would be a lumbar puncture to look for inflammatory markers, and cytology. Patient and her family wants to think about it and let us know if she wants to proceed with lumbar puncture. * 2-D echo with bubble study to rule out PFO revealed normal left ventricular dimensions and systolic function. EF is 60-65%. Left atrial size is normal. * Fasting a.m. lipid panel with cholesterol 171, LDL 96, HDL 42 and triglycerides 160. Continue Lipitor 40 mg daily. * Hemoglobin A1c 6.0. * EEG performed today was normal, with no epileptiform activity. Patient has a clear-cut focal onset secondary generalized seizure. Patient has a focus of abnormal signal in the right parietal cortex which is probably the source of seizure. Although the EEG was normal, but patient is high risk for recurrent seizures. At this time we will start her empirically on Keppra 500 mg twice a day. Patient agreed to be started on Keppra. * Continue aspirin 325 mg. * Telemetric monitoring showing sinus rhythm with some bundle branch block. No other arrhythmia. Addendum: Patient's daughter reached out, and informed that she is agreeing to start Keppra. Patient has declined lumbar puncture. They want to be discharged, and follow-up with Dr. Vo early next week for further management. Time with Patient: Greater than 30
[2022-08-17 08:42] VITALS: RESP 17
[2022-08-17] MEDS: HEPARIN SODIUM,PORCINE/PF 5,000 UNIT/0.5 ML SYRINGE SQ SCH (10:01)
[2022-08-17] MEDS: levETIRAcetam 500 MG TAB PO SCH (10:02)
[2022-08-17] MEDS: CALCIUM CARB-VIT D 500 MG-5 MCG TAB PO SCH (10:02)
[2022-08-17] MEDS: ASPIRIN 325 MG TAB PO SCH ×2 (10:02→12:21)
[2022-08-17] MEDS: ATORVASTATIN 40 MG TAB PO SCH (10:02)
[2022-08-17] MEDS: atenoloL 25 MG TAB PO SCH (10:02)
[2022-08-17 10:06] LABS: Basophils % (A) 0 %; Eosinophils # (A) 0.1 k/uL (0-0.7); Eosinophils % (A) 1 %; HCT 40.6 % (34.0-46.0); HGB 13.1 gm/dL (11.4-16.0); Lymphocytes # (A) 1.9 k/uL (1.0-4.8); Lymphocytes % (A) 20 %; MCH 30.4 pg (25.0-35.0); MCHC 32.2 g/dL (31.0-37.0); MCV 94.2 fL (80.0-100.0); Mean Platelet Volume 7.3; Monocytes # (A) 0.4 k/uL (0-1.0); Monocytes % (A) 4 %; Neutrophils # (A) 7.2 k/uL (1.3-7.7); Neutrophils % (A) 74 %; Platelet Count 259 k/uL (150-450); RBC 4.31 m/uL (3.80-5.40); RDW 14.1 % (11.5-15.5); WBC 9.7 k/uL (3.8-10.6)
[2022-08-17 12:35] VITALS: BP 111/65; PULSE 57; TEMP 97.5
--- NOTE | 2022-08-18 14:44 | DS ---
DISCHARGE SUMMARY FINAL DIAGNOSES: 1. Acute stroke involving the right parieto-occipital region, possible left- sided weakness versus possible seizures. 2. Hypertension. 3. Hyperlipidemia. 4. Multiple medical issues. HISTORY OF PRESENT ILLNESS: This 77-year-old woman with medical history of multiple medical problems, admitted with weakness and possible seizures. The MRI was done, complete neurovascular workup was also done. MRI of the brain showed old-appearing ischemic changes. The neurologist saw the patient and neurovascular workup was also done. Dr. Briones recommended Keppra at this time and follow up in the outpatient setting with Neurology. A 2D echo with Doppler showed only 50% stenosis. The patient was discharged home in stable condition PHYSICAL EXAMINATION: VITAL SIGNS: Stable. CARDIOVASCULAR: S1, S2. ABDOMEN: Soft. NERVOUS SYSTEM: No focal deficits. DISCHARGE ADVICE AND MEDICATIONS: Resume home medications and Keppra 500 mg p.o. b.i.d. Follow up with Dr. Dave Briones in 1 to 2 days. Follow up with Dr. Vo as recommended. MMBARAK / ABDIN: [id number] / [id number]
--- NOTE | 2022-08-20 08:30 | CDI ---
Documentation Clarification Form Date: 08/20/22 From: Patti Coy Admit Date: 08/15/2022 02:09:00 PM Patient Name: Yari Dsouza Visit Number: [id number] Discharge Date: 08/17/2022 02:01:00 PM ATTENTION: The Clinical Documentation Specialists (CDI) and [facility] Coding Staff appreciate your assistance in clarifying documentation. Please respond to the clarification below the line at the bottom and electronically sign. The CDI & [facility] Coding staff will review the response and follow-up if needed. Please note: Queries are made part of the Legal Health Record. If you have any questions, please contact the author of this message via ITS. Dr. Isis Armendariz, Unspecified CKD is documented in the past medical history of ED Note & Consult. Additional clarification regarding the stage of CKD is requested. History/Risk Factors: has kidney failure 45 GFR Patients Historical GFR: 45 Clinical Indicators: Current BUN: 16, 11 Current CR: 1.14, 1.04 Current GFR: 47, 53 Treatment: IV fluids Please clarify the stage of the CKD, if known: [ ] CKD Stage 1 (GFR > 90) [ ] CKD Stage 2 (GFR 60-89) [ ] CKD Stage 3 (GFR 30-59) [x ] CKD Stage 3a (GFR 45-59) [ ] CKD Stage 3b (GFR 30-44) [ ] CKD Stage 4 (GFR 15-29) [ ] CKD Stage 5 (GFR <15) [ ] ESRD [ ] Other, please specify [ ] Unable to determine MTDD
--- NOTE | 2022-08-20 14:01 | CDI ---
Documentation Clarification Form Date: 08/20/2022 01:00:25 PM From: Rosa Baltazar RN CCDS Admit Date: 08/15/2022 02:09:00 PM Patient Name: Yari Dsouza Visit Number: [id number] Discharge Date: 08/17/2022 02:01:00 PM ATTENTION: The Clinical Documentation Specialists (CDI) and [facility] Coding Staff appreciate your assistance in clarifying documentation. Please respond to the clarification below the line at the bottom and electronically sign. The CDI & [facility] Coding staff will review the response and follow-up if needed. Please note: Queries are made part of the Legal Health Record. If you have any questions, please contact the author of this message via ITS. Dr. Isis Armendariz Acute stroke involving the right parieto-occipital region is documented which may lack sufficient clinical evidence/support in the medical record. Additional clarification is requested. History/Risk Factors: 77-year-old female presents to the ED for sudden decrease in her mentation and her eyes rolled back in her head and became flaccid and patient was confused. Medical History: HLD and HTN. 08/15, ED note. Clinical Indicators: 08/16 MRI Brain: Old appearing ischemic changes through the right parietal occipital vertex. Additional signal change through the fright thalamus suggests subacute or old change. Acute ischemic changes are not identified. 08/16, Neurology note: New onset seizure, unclear etiology. Transient left hemiparesis, likely due to the postictal Todds paralysis, weakness has resolved. 08/17, DCS: MRI of the brain showed old-appearing ischemic changes. The neurologist saw the patient and neurovascular workup was also done. Dr. Briones recommended Keppra at this time and follow up in the outpatient setting with Neurology. A 2D echo with Doppler showed only 50% stenosis. Treatment: 08/15 Aspirin 325 PO x 1 STA; 08/16 Aspirin 325mg PO Daily; 08/16 Keppra 500mg PO Q12HR. Please clarify if Acute Stroke is a valid diagnosis? [ ] Yes, Acute Stroke is present as evidence by (additional clinical support): [ ] No, Acute Stroke is ruled out [ ] Other (please specify diagnosis) [ x ] Unable to determine (Template Last Revised: January 2021) TENISHAD
--- NOTE | 2022-08-23 18:54 | P.PN ---
Subjective Progress Note Date: 08/17/22 Patient was seen for a follow-up. Patient denies any focal symptoms. Denies any headache. Patient is feeling better. Offers no complaints. Apparently patient's witnessed that event. He mentioned that he remembers patient going down to the floor. On the floor patient's left leg was twitching, she could communicate well. Then she started trembling all over and then she was "out of it". Patient states that she does remember herself being on the floor and noticed her left leg was jerking real hard, and the right leg was also slightly shaking, but not as hard, and then she started shaking all over and then she does not remember what happened. Apparently patient did bite her tongue fairly hard. No loss of control of urine. Patient denies any history of cancers. Telemetry monitoring showing sinus rhythm, with bundle branch block. No other arrhythmia. Objective - Vital Signs Vital signs: Vital Signs Temp 97.5 F L 08/17/22 12:00 Pulse 57 L 08/17/22 12:00 Resp 17 08/17/22 12:00 BP 111/65 08/17/22 12:00 Pulse Ox 97 08/17/22 12:00 FiO2 Intake & Output 08/16/22 08/17/22 08/17/22 18:59 06:59 18:59 Intake Total 598 360 240 Output Total 300 Balance 298 360 240 Intake: Oral 598 360 240 Output: Urine 300 Other: Voiding Method Toilet Toilet Toilet # Voids 2 # Bowel Movements 2 - Exam Mental status, speech and language functions are normal. Face is symmetric. Tongue protrudes the midline. Evidence of oral trauma from previous seizure. Muscle strength is normal. No ataxia for ijxmtc-oq-[id number] testing. Sensory to touch is equal with no neglect. - Labs CBC & Chem 7: 08/17/22 09:09 08/16/22 06:58 Assessment and Plan Assessment: * New onset seizure, unclear etiology. * Transient left hemiparesis, likely due to postictal William's paralysis, weakness has resolved. * Abnormal brain MRI with evidence of abnormal signal in the right basal ganglia, and left parietal cortex in the ARIADNE territory. * Hypertension Plan: * MRI of brain with and without contrast was performed, which reported old- appearing ischemic changes through the right parietal occipital vertex. Additional signal change to the right thalamus suggest subacute or old change. Acute ischemic changes are not identified. I personally reviewed MRI of the brain and also reviewed it with another radiologist Dr. Loving. Apparently there is an abnormal signal in the right parietal cortex near the vertex in ARIADNE territory. There is a very large abnormal FLAIR signal also in the right is ganglia mainly centered in the thalamus. This does not follow any vascular territory therefore is not vascular in nature. Rule out inflammatory/demyelinating cause, vs neoplastic cause. Apparently the lesion mainly involves ayala matter, concerning for glioma. Apparently there is no contrast enhancement therefore inflammatory process somewhat less likely. Low-grade glioma is a possibility, but would be unlikely to involve 2 different regions of the brain unless his multifocal glioma. Patient needs further workup at this point. * Discussed with patient about next step would be a lumbar puncture to look for inflammatory markers, and cytology. Patient and her family wants to think about it and let us know if she wants to proceed with lumbar puncture. * 2-D echo with bubble study to rule out PFO revealed normal left ventricular dimensions and systolic function. EF is 60-65%. Left atrial size is normal. * Fasting a.m. lipid panel with cholesterol 171, LDL 96, HDL 42 and triglycerides 160. Continue Lipitor 40 mg daily. * Hemoglobin A1c 6.0. * EEG was normal, with no epileptiform activity. Patient has a clear-cut focal onset secondary generalized seizure. Patient has a focus of abnormal signal in the right parietal cortex which is probably is the source of seizure. Although the EEG was normal, but patient is high risk for recurrent seizures. At this time we will start her empirically on Keppra 500 mg twice a day. Patient agreed to be started on Keppra. * Continue aspirin 325 mg. * Patient and her family recommended about [place] state law of no driving unless seizure free for 6 months, climbing ladders, operating dangerous machinery or unsupervised swimming. * Patient has declined lumbar puncture. She has no complaints at this time. They want to be discharged, and follow-up with Dr. Vo early next week for further management.
--- NOTE | 2022-08-27 07:54 | CDI ---
Documentation Clarification Form Date: 08/20/2022 01:00:25 PM From: Rosa Baltazar RN CCDS Admit Date: 08/15/2022 02:09:00 PM Patient Name: Yari Dsouza Visit Number: [id number] Discharge Date: 08/17/2022 02:01:00 PM ATTENTION: The Clinical Documentation Specialists (CDI) and [facility] Coding Staff appreciate your assistance in clarifying documentation. Please respond to the clarification below the line at the bottom and electronically sign. The CDI & [facility] Coding staff will review the response and follow-up if needed. Please note: Queries are made part of the Legal Health Record. If you have any questions, please contact the author of this message via ITS. Dr. Isis Armendariz Acute stroke involving the right parieto-occipital region is documented which may lack sufficient clinical evidence/support in the medical record. Additional clarification is requested. History/Risk Factors: 77-year-old female presents to the ED for sudden decrease in her mentation and her eyes rolled back in her head and became flaccid and patient was confused. Medical History: HLD and HTN. 08/15, ED note. Clinical Indicators: 08/16 MRI Brain: Old appearing ischemic changes through the right parietal occipital vertex. Additional signal change through the fright thalamus suggests subacute or old change. Acute ischemic changes are not identified. 08/16, Neurology note: New onset seizure, unclear etiology. Transient left hemiparesis, likely due to the postictal Todds paralysis, weakness has resolved. 08/17, DCS: MRI of the brain showed old-appearing ischemic changes. The neurologist saw the patient and neurovascular workup was also done. Dr. Briones recommended Keppra at this time and follow up in the outpatient setting with Neurology. A 2D echo with Doppler showed only 50% stenosis. Treatment: 08/15 Aspirin 325 PO x 1 STA; 08/16 Aspirin 325mg PO Daily; 08/16 Keppra 500mg PO Q12HR. Please clarify if Acute Stroke is a valid diagnosis? [ ] Yes, Acute Stroke is present as evidence by (additional clinical support): [ ] No, Acute Stroke is ruled out [ ] Other (please specify diagnosis) [ ] Unable to determine (Template Last Revised: January 2021) Yes, Acute Stroke is present as evidence by clical features and mri MTDD
--- NOTE | 2022-08-28 23:15 | P.PN ---
Subjective Progress Note Date: 08/17/22 Patient was seen for a follow-up. Patient's family members were also present today. Patient denies any focal symptoms. Denies any headache. Patient is feeling better. Offers no complaints. Apparently patient's witnessed that event. He mentioned that he remembers patient going down to the floor. On the floor patient's left leg was twitching, she could communicate well. Then she started trembling all over and then she was "out of it". Patient states that she does remember herself being on the floor and noticed her left leg was jerking real hard, and the right leg was also slightly shaking, but not as hard, and then she started shaking all over and then she does not remember what happened. Apparently patient did bite her tongue fairly hard. No loss of control of urine. Patient denies any history of cancers. Telemetry monitoring showing sinus rhythm, with bundle branch block. No other arrhythmia. Objective - Vital Signs Vital signs: Vital Signs Temp 97.5 F L 08/17/22 12:00 Pulse 57 L 08/17/22 13:30 Resp 17 08/17/22 13:30 BP 111/65 08/17/22 12:00 Pulse Ox 97 08/17/22 12:00 FiO2 - Exam Mental status, speech and language functions are normal. Cranial nerves are normal. Visual romero are full on confrontation with no neglect on double s imultaneous stimulation. Face is symmetric. Tongue protrudes the midline. Evidence of oral trauma from previous seizure. On muscle strength testing, there is no pronator drift. Muscle strength is normal. No ataxia for clcodw-sd-[id number] testing on either side. Sensory to touch is equal with no neglect on double simultaneous stimulation. - Labs CBC & Chem 7: 08/17/22 09:09 08/16/22 06:58 Assessment and Plan Plan: * MRI of brain with and without contrast was performed, which reported old- appearing ischemic changes through the right parietal occipital vertex. Additional signal change to the right thalamus suggest subacute or old change. Acute ischemic changes are not identified. I personally reviewed MRI of the brain and also reviewed it with another radiologist Dr. Loving. Apparently there is an abnormal signal in the right parietal cortex near the vertex in ARIADNE territory. There is a very large abnormal FLAIR signal also in the right basal ganglia mainly centered in the right thalamus. This does not follow any vascular territory therefore is not vascular in nature. Rule out inflammatory/demyelinating cause, vs neoplastic cause. The lesion mainly involves ayala matter, concerning for glioma. Apparently there is no contrast enhancement therefore inflammatory process somewhat less likely. Low-grade glioma is a possibility, but would be unlikely to involve 2 different regions of the brain unless it is multifocal glioma. Patient needs further workup at this point. I reviewed patient's MRI films on the computer with patient's family. * Discussed with patient about next step would be a lumbar puncture to look for inflammatory markers, and cytology. Patient declined lumbar puncture. Patient has no previous history of any malignancy. * 2-D echo with bubble study to rule out PFO revealed normal left ventricular dimensions and systolic function. EF is 60-65%. Left atrial size is normal. * Fasting a.m. lipid panel with cholesterol 171, LDL 96, HDL 42 and triglycerides 160. Continue Lipitor 40 mg daily. * Hemoglobin A1c 6.0. * EEG was normal, with no epileptiform activity. Patient has a clear-cut focal onset-secondary generalized seizure. Patient has a focus of abnormal signal in the right parietal cortex which is probably is the source of seizure. Although the EEG was normal, but patient is high risk for recurrent seizures. At this time we will start her empirically on Keppra 500 mg twice a day. Patient agreed to be started on Keppra. * As this lesion is not vascular in nature, therefore no need to take aspirin. * Patient and her family recommended about [place] state law of no driving unless seizure free for 6 months, climbing ladders, operating dangerous machinery or unsupervised swimming. * Patient will follow-up with Dr. Vo early next week for further management. Patient probably will need neurosurgical consultation as well to consider for possible brain biopsy versus short-term follow-up brain MRI with and without contrast.
== END 2022-08-17 14:01 | disposition home or self-care (01) | DRG 100 ==
LOC: EC 12:06 → 3SCARD 14:09
PROVIDERS: ADMIT Internal Medicine; ATTEND Internal Medicine
DX: R56.9 Unspecified convulsions (principal); I63.89 Other cerebral infarction; G81.94 Hemiplegia, unspecified affecting left nondominant side; N18.31 Chronic kidney disease, stage 3a; I12.9 Hypertensive chronic kidney disease with stage 1 through stage 4 chronic kidney disease, or unspecified chronic kidney disease; R29.709 NIHSS score 9; R47.02 Dysphasia; R47.1 Dysarthria and anarthria; I44.0 Atrioventricular block, first degree; E78.5 Hyperlipidemia, unspecified; K21.9 Gastro-esophageal reflux disease without esophagitis; E03.9 Hypothyroidism, unspecified; E66.9 Obesity, unspecified; Z68.32 Body mass index [BMI] 32.0-32.9, adult; Z79.82 Long term (current) use of aspirin; Z79.890 Hormone replacement therapy; Z79.899 Other long term (current) drug therapy; Z88.4 Allergy status to anesthetic agent; Z88.1 Allergy status to other antibiotic agents; Z88.5 Allergy status to narcotic agent; Z88.2 Allergy status to sulfonamides
CPT/HCPCS: 36415; 70450; 70496; 70498; 70553; 71046; 80048; 80053; 80061; 83036; 84484; 85025; 85610; 85730; 93005; 93306; 93880; 94760; 95816; 96374; 99291

== ENCOUNTER 2022-10-18 05:59 | Emergency (ER) | payer MEDICARE ==
[2022-10-18 06:03] VITALS: RESP 18; TEMP 98.7
[2022-10-18] MEDS ORDERED: predniSONE 20 MG TAB PO STA (07:30)
[2022-10-18] MEDS ORDERED: LORATADINE 10 MG TAB PO STA (07:31)
--- NOTE | 2022-10-18 07:37 | ED ---
General Adult HPI - General Chief complaint: Allergic Reaction Stated complaint: hives, eye swelling Time Seen by Provider: 10/18/22 07:19 Source: patient, RN notes reviewed Mode of arrival: ambulatory Limitations: no limitations - History of Present Illness Initial comments: Patient is a pleasant 77-year-old female presenting to the emergency department with concern with hives as well as swelling in her eyes. Onset of symptoms was a few days ago. Patient has been taking Benadryl as advised by her doctor with some improvement of rash however still remained somewhat swollen. No swelling of the tongue or throat. No difficult to breathing. Patient states her may be some minimal swelling of her upper lip. No history of similar symptoms. Sick. Patient was started on Keppra couple months ago. Patient was also on Lamictal however that has been discontinued over a week ago. Patient also discontinued Keppra yesterday. - Related Data Home Medications Medication Instructions Recorded Confirmed Aspirin 81 mg PO [facility] 04/09/17 08/15/22 Atorvastatin [Lipitor] 40 mg PO 04/09/17 08/15/22 Calcium Carbonate/Vitamin D3 1 tab PO DAILY 04/09/17 08/15/22 [Calcium 600-Vit D3 800 Tab] Fish Oil/Dha/Epa [Fish Oil 1,200 1 cap PO DAILY 04/09/17 08/15/22 mg Fish Oil] Levothyroxine Sodium [Synthroid] 25 mcg PO AC-BRKFST 04/09/17 08/15/22 atenoloL [Tenormin] 25 mg PO DAILY 04/09/17 08/15/22 calcitrioL [Rocaltrol] 0.25 mcg PO 04/09/17 08/15/22 hydroCHLOROthiazide [Hydrodiuril] 12.5 mg PO DAILY 04/09/17 08/15/22 Candesartan Cilexetil 8 mg PO 08/15/22 08/15/22 Ferrous Sulfate [Iron (65 MG 325 mg PO TU 08/15/22 08/15/22 Elemental)] Omeprazole [PriLOSEC] 10 mg PO DAILY 08/15/22 08/15/22 allopurinoL [Zyloprim] 100 mg PO DAILY 08/15/22 08/15/22 Previous Rx's Medication Instructions Recorded levETIRAcetam [Keppra] 500 mg PO Q12HR #60 tab 08/17/22 predniSONE [Deltasone] 20 mg PO BID #8 tab 10/18/22 Allergies Allergy/AdvReac Type Severity Reaction Status Date / Time levofloxacin [From Levaquin] Allergy Rash/Hives Verified 10/18/22 06:03 proparacaine Allergy Unknown Verified 10/18/22 06:03 Sulfa (Sulfonamide Allergy Rash/Hives Verified 10/18/22 06:03 Antibiotics) codeine AdvReac Nausea & Verified 10/18/22 06:03 Vomiting Review of Systems ROS Statement: Those systems with pertinent positive or pertinent negative responses have been documented in the HPI. ROS Other: All systems not noted in ROS Statement are negative. Constitutional: Denies: fever Eyes: Denies: eye pain ENT: Denies: ear pain Respiratory: Denies: cough, dyspnea Cardiovascular: Denies: chest pain Endocrine: Denies: fatigue Gastrointestinal: Denies: abdominal pain Genitourinary: Denies: dysuria Musculoskeletal: Denies: back pain Skin: Reports: as per HPI Neurological: Denies: headache Past Medical History Past Medical History: GERD/Reflux, Hyperlipidemia, Hypertension, Renal Disease, Thyroid Disorder Additional Past Medical History / Comment(s): states "has kidney failure 45 GFR" History of Any Multi-Drug Resistant Organisms: None Reported Past Surgical History: Orthopedic Surgery Additional Past Surgical History / Comment(s): tendon release rt wrist,juan cataract,finger surg Past Anesthesia/Blood Transfusion Reactions: Motion Sickness Past Psychological History: No Psychological Hx Reported Smoking Status: Never smoker Past Alcohol Use History: None Reported Past Drug Use History: None Reported - Past Family History Mother Family Medical History: No Reported History Father Family Medical History: No Reported History General Exam Limitations: no limitations General appearance: alert, in no apparent distress Head exam: Present: normocephalic Eye exam: Present: other (Bilateral periorbital edema, mild to moderate) ENT exam: Present: normal oropharynx, other (Trace edema to the upper lip. No edema of the tongue or uvula) Neck exam: Present: normal inspection Respiratory exam: Present: normal lung sounds bilaterally. Absent: respiratory distress, wheezes Cardiovascular Exam: Present: regular rate, normal rhythm Extremities exam: Present: normal inspection Neurological exam: Present: alert Psychiatric exam: Present: normal affect, normal mood Skin exam: Present: normal color. Absent: rash, urticaria Course Vital Signs 12/09/22 06:01 Temperature 98.7 F Pulse Rate 93 Respiratory 18 Rate Blood Pressure 152/81 O2 Sat by Pulse 98 Oximetry Medical Decision Making - Medical Decision Making Patient will continue to hold anticonvulsants. Disposition Clinical Impression: Angioedema Disposition: HOME SELF-CARE Condition: Stable Instructions (If sedation given, give patient instructions): Angioedema (ED) Additional Instructions: Continue to hold anticonvulsants including Keppra and Lamictal. Do not restart Lamictal. Continue epzs-[id number] antihistamines such as Benadryl, or Claritin, or Marychuy. [facility] Return for rash, difficulty breathing, increased swelling, worsening symptoms or other concerns. Prescriptions: predniSONE [Deltasone] 20 mg PO BID #8 tab Is patient prescribed a controlled substance at d/c from ED?: No Referrals: Dave Briones DO [Primary Care Provider] - 1-2 days Time of Disposition: 07:37
[2022-10-18 08:09] VITALS: BP 132/78; PULSE 80
== END 2022-10-18 08:09 | disposition home or self-care (01) ==
LOC: EC 05:59
DX: T78.3XXA Angioneurotic edema, initial encounter (principal); I10 Essential (primary) hypertension; E78.5 Hyperlipidemia, unspecified; K21.9 Gastro-esophageal reflux disease without esophagitis; E07.9 Disorder of thyroid, unspecified; Z88.1 Allergy status to other antibiotic agents; Z88.2 Allergy status to sulfonamides; Z88.5 Allergy status to narcotic agent; Z79.82 Long term (current) use of aspirin; Z79.899 Other long term (current) drug therapy; Z79.890 Hormone replacement therapy
CPT/HCPCS: 99283; J7512

== ENCOUNTER 2022-10-18 16:13 | Observation (INO) | payer MEDICARE ==
[2022-10-18] MEDS ORDERED: SODIUM CHLORIDE 0.9% 1,000 ML IV STA (16:37)
[2022-10-18] MEDS ORDERED: LORazepam 2 MG/ML INJ IV STA ×2 (16:40→21:24)
[2022-10-18 17:07] LABS: Basophils % (A) 0 %; Eosinophils % (A) 0 %; HCT 43.1 % (34.0-46.0); Lymphocytes # (A) 0.9 k/uL (1.0-4.8); Lymphocytes % (A) 11 %; MCH 31.7 pg (25.0-35.0); MCHC 34.9 g/dL (31.0-37.0); MCV 91.1 fL (80.0-100.0); Mean Platelet Volume 7.7; Monocytes # (A) 0.2 k/uL (0-1.0); Monocytes % (A) 3 %; Neutrophils # (A) 6.8 k/uL (1.3-7.7); Neutrophils % (A) 85 %; Platelet Count 375 k/uL (150-450); RBC 4.73 m/uL (3.80-5.40); RDW 13.8 % (11.5-15.5); WBC 8.1 k/uL (3.8-10.6)
--- NOTE | 2022-10-18 17:15 | ED ---
Seizure HPI - General Chief Complaint: Seizure Stated Complaint: Seizures Time Seen by Provider: 10/18/22 16:29 Source: EMS Mode of arrival: EMS Limitations: no limitations - History of Present Illness Initial Comments: Patient is a 77 year old female presenting with chief complaint of seizure. Patient has had one previous seizure which took place on 08/15/2022. Patient was then started on Keppra 500 mg every 12hr. patient discontinued her Keppra yesterday as she had been recently breaking out in hives. She was evaluated here in the ER earlier today for the hives, no difficulty breathing or swallowing. She was instructed to continue holding her antiepileptic. Patient's was with her when she had her seizure today, he assisted her to the floor and states that the seizure lasted shorter than 1 minute. Patient is anxious here in the ER. Her left leg is twitching. No confusion, chest pain, difficulty breathing, abdominal pain, nausea, vomiting, headache, vision or hearing changes, numbness, tingling. She admits to some pain in the left leg from muscle spasms. - Related Data Home Medications Medication Instructions Recorded Confirmed Atorvastatin [Lipitor] 40 mg PO HS 04/09/17 10/18/22 Calcium Carbonate/Vitamin D3 1 tab PO DAILY 04/09/17 10/18/22 [Calcium 600-Vit D3 800 Tab] Fish Oil/Dha/Epa [Fish Oil 1,200 1 cap PO DAILY 04/09/17 10/18/22 mg Fish Oil] Levothyroxine Sodium [Synthroid] 25 mcg PO AC-BRKFST 04/09/17 10/18/22 atenoloL [Tenormin] 25 mg PO DAILY 04/09/17 10/18/22 calcitrioL [Rocaltrol] 0.25 mcg PO FR 04/09/17 10/18/22 hydroCHLOROthiazide [Hydrodiuril] 12.5 mg PO DAILY 04/09/17 10/18/22 Candesartan Cilexetil 8 mg PO HS 08/15/22 10/18/22 Ferrous Sulfate [Iron (65 MG 325 mg PO TU 08/15/22 10/18/22 Elemental)] Omeprazole [PriLOSEC] 10 mg PO DAILY 08/15/22 10/18/22 allopurinoL [Zyloprim] 100 mg PO DAILY 08/15/22 10/18/22 Fluocinonide 0.05% Soln 1 applic TOPICAL DIRECTED 10/18/22 10/18/22 Loratadine [Claritin] 10 mg PO DAILY 10/18/22 10/18/22 diphenhydrAMINE HCL [Benadryl 25 mg PO Q4H PRN 10/18/22 10/18/22 Allergy] levETIRAcetam [Keppra] 500 mg PO DIRECTED 10/18/22 10/18/22 Previous Rx's Medication Instructions Recorded Lacosamide 50 mg PO BID 7 Days #14 tab 10/18/22 predniSONE [Deltasone] 20 mg PO BID #8 tab 10/18/22 Allergies Allergy/AdvReac Type Severity Reaction Status Date / Time lamotrigine [From Lamictal] Allergy Rash/Hives Verified 10/18/22 18:12 levofloxacin [From Levaquin] Allergy Rash/Hives Verified 10/18/22 17:59 proparacaine Allergy Unknown Verified 10/18/22 17:59 Sulfa (Sulfonamide Allergy Rash/Hives Verified 10/18/22 17:59 Antibiotics) codeine AdvReac Nausea & Verified 10/18/22 17:59 Vomiting Review of Systems ROS Statement: Those systems with pertinent positive or pertinent negative responses have been documented in the HPI. ROS Other: All systems not noted in ROS Statement are negative. Past Medical History Past Medical History: GERD/Reflux, Hyperlipidemia, Hypertension, Renal Disease, Thyroid Disorder Additional Past Medical History / Comment(s): states "has kidney failure 45 GFR" History of Any Multi-Drug Resistant Organisms: None Reported Past Surgical History: Orthopedic Surgery Additional Past Surgical History / Comment(s): tendon release rt wrist,juan cataract,finger surg Past Anesthesia/Blood Transfusion Reactions: Motion Sickness Past Psychological History: No Psychological Hx Reported Smoking Status: Never smoker Past Alcohol Use History: None Reported Past Drug Use History: None Reported - Past Family History Mother Family Medical History: No Reported History Father Family Medical History: No Reported History General Exam Limitations: no limitations General appearance: alert, anxious Head exam: Present: atraumatic, normocephalic, normal inspection Eye exam: Present: normal appearance, PERRL, EOMI. Absent: scleral icterus, conjunctival injection, periorbital swelling Neck exam: Present: normal inspection. Absent: tenderness Respiratory exam: Present: normal lung sounds bilaterally. Absent: respiratory distress, wheezes, rales, rhonchi, stridor Cardiovascular Exam: Present: normal rhythm, tachycardia, normal heart sounds. Absent: systolic murmur, diastolic murmur, rubs, gallop, clicks Neurological exam: Present: alert, oriented X3, CN II-XII intact Expanded Speech: Present: fluid speech Eye Response: (4) open spontaneously Motor Response: (6) obeys commands Verbal Response: (5) oriented Psychiatric exam: Present: anxious Skin exam: Present: warm, dry, intact, normal color. Absent: rash Course Vital Signs 10/18/22 10/18/22 10/18/22 16:21 17:30 18:00 Pulse Rate 114 H 94 93 Respiratory 22 20 18 Rate Blood Pressure 152/78 141/79 132/81 O2 Sat by Pulse 97 93 L Oximetry 10/18/22 10/18/22 10/18/22 18:30 20:00 21:11 Pulse Rate 85 80 80 Respiratory 18 14 16 Rate Blood Pressure 131/68 125/67 147/82 O2 Sat by Pulse 93 L 96 94 L Oximetry 10/18/22 22:50 Pulse Rate 90 Respiratory 16 Rate Blood Pressure 138/66 O2 Sat by Pulse 94 L Oximetry Medical Decision Making - Medical Decision Making Patient is a 77-year-old female presenting with chief complaint of seizure. Patient has history of one previous seizure alteplase August 15, she was well managed on Keppra. She states that 2 months after starting Keppra she began developing hives and was instructed to discontinue her Keppra. Patient had one seizure today, her caught her and assist rebound ground, lasted less than 1 minute. When patient arrived her left leg was continuing to twitch, which is typical with her seizures. On physical examination there are no focal deficits. CT of the brain shows no acute intracranial process there is remote injury to the right parietal region that was characterized on prior MRI. I discussed this case with neurologist machine ironer Dr. Morgan, he advised starting Vimpat. He advised a 100 mg IV loading dose here in the ER and sending her home on 50 mg twice a day. On my reassessment patient responded well to Ativan, was feeling well enough to go home. When her nurse went in to discharge her patient states that her leg was feeling restless and she was concerned for an additional seizure. I discussed this with the attending Dr. Tolbert who advised giving another dose of Ativan. Patient was given another dose of Ativan and was feeling well. When nursing staff went to stand her up, she vomited. I was then told that the patient went to reach for something on the ground slipped and fell hitting her head. CT of the brain was immediately ordered and patient will be admitted. I discussed this case with Dr. Jones who accepted admission. I discussed this case in detail with my attending Dr. Tolbert Repeat noncontrast noncontrast CT shows large right frontal scalp hematoma. No mass effect or midline shift no sign of intracranial hemorrhage. CT of the head and neck shows negative CT angiogram of the neck negative CT angiogram of the brain. No adverse change compared to old exam. Cervical spondylitic changes with no fracture seen. On reassessment she is resting comfortably. Family is updated on these findings and the plan, they are agreeable. - Lab Data Result diagrams: 10/18/22 16:44 10/18/22 16:44 Lab Results 10/18/22 10/18/22 10/18/22 Range/Units 16:44 16:44 17:57 WBC 8.1 (3.8-10.6) k/uL RBC 4.73 (3.80-5.40) m/uL Hgb 15.0 (11.4-16.0) gm/dL Hct 43.1 (34.0-46.0) % MCV 91.1 (80.0-100.0) fL MCH 31.7 (25.0-35.0) pg MCHC 34.9 (31.0-37.0) g/dL RDW 13.8 (11.5-15.5) % Plt Count 375 (150-450) k/uL MPV 7.7 Neutrophils % 85 % Lymphocytes % 11 % Monocytes % 3 % Eosinophils % 0 % Basophils % 0 % Neutrophils # 6.8 (1.3-7.7) k/uL Lymphocytes # 0.9 L (1.0-4.8) k/uL Monocytes # 0.2 (0-1.0) k/uL Eosinophils # 0.0 (0-0.7) k/uL Basophils # 0.0 (0-0.2) k/uL Sodium 130 L (137-145) mmol/L Potassium 3.6 (3.5-5.1) mmol/L Chloride 97 L (98-107) mmol/L Carbon Dioxide 12 L (22-30) mmol/L Anion Gap 21 mmol/L BUN 15 (7-17) mg/dL Creatinine 1.18 H (0.52-1.04) mg/dL Est GFR (CKD-EPI)AfAm 52 (>60 ml/min/1.73 sqM) Est GFR (CKD-EPI)NonAf 45 (>60 ml/min/1.73 sqM) Glucose 181 H (74-99) mg/dL Plasma Lactic Acid Pj 2.0 (0.7-2.0) mmol/L Calcium 9.6 (8.4-10.2) mg/dL Magnesium 1.7 (1.6-2.3) mg/dL Total Bilirubin 0.7 (0.2-1.3) mg/dL AST 34 (14-36) U/L ALT 40 H (4-34) U/L Alkaline Phosphatase 132 H (38-126) U/L Creatine Kinase 85 (30-135) U/L Total Protein 7.9 (6.3-8.2) g/dL Albumin 4.7 (3.5-5.0) g/dL Salicylates <1.0 mg/dL Acetaminophen <10.0 ug/mL Disposition Clinical Impression: Seizure Disposition: ADMITTED IP TO THIS [facility] Condition: Fair Is patient prescribed a controlled substance at d/c from ED?: Yes When asked, does pt state using other controlled substances?: No If prescribed controlled substance>3 days was MAPS reviewed?: Yes Time of Disposition: 22:43 Decision to Admit Reason: Admit from EC Decision Date: 10/18/22 Decision Time: 22:43
[2022-10-18 17:17] LABS: AST 34 U/L (14-36); Acetaminophen <10.0 ug/mL; African American GFR (CKD) 52 (>60 ml/min/1.73 sqM); Albumin 4.7 g/dL (3.5-5.0); Alkaline Phosphatase 132 U/L (38-126); Anion Gap 21 mmol/L; Blood Urea Nitrogen 15 mg/dL (7-17); Calcium 9.6 mg/dL (8.4-10.2); Carbon Dioxide 12 mmol/L (22-30); Chloride 97 mmol/L (98-107); Creatine Kinase 85 U/L (30-135); Glucose 181 mg/dL (74-99); Magnesium 1.7 mg/dL (1.6-2.3); Non-African American GFR(CKD) 45 (>60 ml/min/1.73 sqM); Potassium 3.6 mmol/L (3.5-5.1); Salicylate <1.0 mg/dL; Sodium 130 mmol/L (137-145); Total Bilirubin 0.7 mg/dL (0.2-1.3); Total Protein 7.9 g/dL (6.3-8.2)
[2022-10-18 17:27] LABS: ALT 40 U/L (4-34)
--- NOTE | 2022-10-18 18:47 | CT ---
EXAMINATION TYPE: CT brain wo con CT DLP: 1088.4 mGycm, Automated exposure control for dose reduction was used. DATE OF EXAM: 10/18/2022 5:44 PM COMPARISON: MRI 08/16/2022, CT 08/15/2022. CLINICAL INDICATION:Female, 77 years old with history of seizure activity, seizure TECHNIQUE: Brain: Axial CT images of the brain were obtained with coronal and sagittal reformats created and rev iewed. Contrast used: None. Oral contrast used: None. FINDINGS: Brain: Extra-axial spaces: No abnormal extra-axial fluid collections. Ventricular system: Within normal limits Cerebral parenchyma: Similar white matter changes in the right cerebrum near the skull vertex in the parietal/posterior frontal right lobe. No acute intraparenchymal hemorrhage or mass effect. The ayala -white junction is well differentiated. Cerebellum: Unremarkable. Mass effect: No evidence of midline shift. Intracranial vasculature: unremarkable Soft tissues: Normal. Calvarium/osseous structures: No depressed skull fracture. Paranasal sinuses and mastoid air cells: Mild scattered paranasal sinus disease. Visualized orbits: Bilateral aphakia IMPRESSION: 1. No acute intracranial process. 2. Remote injury to the right parietal region has characterized on prior MRI.
[2022-10-18] MEDS ORDERED: LACOSAMIDE IV 100 MG in SODIUM CHLORIDE 0.9% 50 ML IVPB STA (19:55)
[2022-10-18] MEDS ORDERED: SODIUM CHLORIDE 0.9% 1,000 ML IV ONE ×2 (22:54→23:06)
[2022-10-18] MEDS ORDERED: NALOXONE 0.4 MG/ML 1 ML VIAL IV PRN (23:09)
--- NOTE | 2022-10-18 23:54 | CT ---
EXAMINATION TYPE: CT brain wo con DATE OF EXAM: 10/18/2022 COMPARISON: 10/18/2022 HISTORY: FALL SEIZURE CT DLP: 1093.5 mGycm Automated exposure control for dose reduction was used. There is mild cerebral cortical atrophy. There is no mass effect or midline shift. No sign of intracr anial hemorrhage. The calvarium is intact. The skull base is intact. There is normal aeration of the mastoid air cells. There is large right frontal scalp hematoma that measures 10 mm in thickness. There is a 3 cm rounded area of hypodensity in the cortex right parietal lobe convexity near the midl ine. IMPRESSION: Large right frontal scalp hematoma. Hematoma appears new compared to exam 5 hours ago. 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
--- NOTE | 2022-10-19 00:18 | CT ---
EXAMINATION TYPE: CT angio head neck DATE OF EXAM: 10/18/2022 COMPARISON: 08/15/2022 HISTORY: FALL SEIZURE CT DLP: 561 mGycm Automated exposure control for dose reduction was used. CONTRAST: Performed with IV Contrast, patient injected with 65 mL of Isovue 370. Images obtained from the aortic arch to the vertex of the brain with the IV contrast. There are Three -D postprocessed images. There is normal branching pattern of the great vessels on the aortic arch. There is arterial flow in both subclavian arteries. No mediastinal adenopathy. There is arterial flow in the common internal and external carotid arterie s bilaterally. There is wide patency of the carotid artery bifurcations. There is arterial flow in arnaldo th vertebral arteries. There is arterial flow in the vertebral basilar artery system. There is arterial flow in the anterior middle and posterior cerebral arteries bilaterally. There is n o mass effect. No evidence of intracranial aneurysm or neovascularity. No evidence of intracranial hemodynamic arterial stenosis. There is normal enhancement of the venous sinuses. The cervical vertebra have normal alignment. There is degenerative disc space narrowing C3-C7 with sp urring of the endplates. No compression fracture. Facet joints are intact. IMPRESSION: Negative CT angiogram of the neck. Negative CT angiogram of the brain. No adverse change compared to old exam. Cervical spondylotic changes. No fracture seen.
[2022-10-19 03:12] LABS: Appearance,Urine Clear (Clear); Bilirubin,Urine Negative (Negative); Blood,Urine Negative (Negative); Color,Urine Light Yellow; Glucose,Urine (UA) Negative (Negative); Ketones,Urine Negative (Negative); Leukocyte Esterase,Urine Moderate (Negative); Mucus,Urine Rare /hpf; Nitrite,Urine Negative (Negative); PH, Urine 6.5 (5.0-8.0); Protein,Urine Negative (Negative); RBC,Urine 2 /hpf (0-5); Specific Gravity,Urine 1.025 (1.001-1.035); Urobilinogen,Urine <2.0 mg/dL (<2.0); WBC,Urine 8 /hpf (0-5)
[2022-10-19] MEDS: SODIUM CHLORIDE 0.9% 1,000 ML IV SCH (13:02)
[2022-10-19] MEDS: LACOSAMIDE 50 MG TABLET PO SCH ×2 (13:02→20:14)
--- NOTE | 2022-10-19 17:40 | P.CNNES ---
History of Present Illness Consult date: 10/19/22 Reason for Consult: seizure Chief complaint: seizure History of Present Illness: The patient is a 77-year-old female who is seen in neurologic consultation on October 19, 2022, via teleneurology. The patient is being seen because of concerns regarding seizure. The patient reports that she originally came into the hospital after having a seizure at home. According to the patient she had her first seizure approximately 8 weeks ago. At that time, she was started on Keppra. The patient reports that the K eppra made her feel dizzy and off balance. She discussed this with her neurologist who advised her to taper the Keppra and titrate a new medication, Lamictal. The patient reports that she began to experience a rash with Lamictal. This medication was subsequently discontinued and the patient wilber nued on Keppra. More recently, the Keppra began to result in hives. This medication was also stopped. The patient apparently came into the emergency department because of a seizure, which occurred after stopping all of her antiepileptic medications. The emergency Department physician contacted the neurologist data quality consultant, last night, Dr. Morgan. He advised that the patient be loaded with Vimpat, given a prescription for oral Vimpat and discharged home. According to the emergency department notes, the patient continued to feel a shaking sensation in her left leg and was concerned that she wouldn't have another seizure. She was given a dose of Ativan for this leg shaking. Apparently, per ER note, the patient received an additional dose of Ativan and was feeling well and physical home. The patient was reportedly stood up with the assistance of nursing, when she vomited. She reportedly reached out for something on the floor and slipped, falling, hitting her head. The patient denies loss of consciousness related to the fall and hit to the head. At the time of the neurology evaluation, the patient denies headache. She denies further episodes of left leg spasm. There is no loss of consciousness. Does feel as if she is having some difficulty with vision from her right eye however this was present prior to this recent fall. The patient reports that her face, around her right eye is somewhat sore. She denies weakness, numbness, tingling in her extremities. CT scan of the brain report is reviewed. There is no reported evidence of subdural hematoma. There is noted to be a large right frontal scalp hematoma. Past Medical History Past Medical History: GERD/Reflux, Hyperlipidemia, Hypertension, Renal Disease, Thyroid Disorder Additional Past Medical History / Comment(s): states "has kidney failure 45 GFR" History of Any Multi-Drug Resistant Organisms: None Reported Past Surgical History: Orthopedic Surgery Additional Past Surgical History / Comment(s): tendon release rt wrist,juan cataract,finger surg Past Anesthesia/Blood Transfusion Reactions: Motion Sickness Past Psychological History: No Psychological Hx Reported Smoking Status: Never smoker Past Alcohol Use History: None Reported Past Drug Use History: None Reported - Past Family History Mother Family Medical History: No Reported History Father Family Medical History: No Reported History Medications and Allergies Home Medications Medication Instructions Recorded Confirmed Type Atorvastatin [Lipitor] 40 mg PO HS 04/09/17 10/18/22 History Calcium Carbonate/Vitamin D3 1 tab PO DAILY 04/09/17 10/18/22 History [Calcium 600-Vit D3 800 Tab] Fish Oil/Dha/Epa [Fish Oil 1,200 1 cap PO DAILY 04/09/17 10/18/22 History mg Fish Oil] Levothyroxine Sodium [Synthroid] 25 mcg PO AC-BRKFST 04/09/17 10/18/22 History atenoloL [Tenormin] 25 mg PO DAILY 04/09/17 10/18/22 History calcitrioL [Rocaltrol] 0.25 mcg PO FR 04/09/17 10/18/22 History hydroCHLOROthiazide [Hydrodiuril] 12.5 mg PO DAILY 04/09/17 10/18/22 History Candesartan Cilexetil 8 mg PO HS 08/15/22 10/18/22 History Ferrous Sulfate [Iron (65 MG 325 mg PO TU 08/15/22 10/18/22 History Elemental)] Omeprazole [PriLOSEC] 10 mg PO DAILY 08/15/22 10/18/22 History allopurinoL [Zyloprim] 100 mg PO DAILY 08/15/22 10/18/22 History Fluocinonide 0.05% Soln 1 applic TOPICAL DIRECTED 10/18/22 10/18/22 History Lacosamide 50 mg PO BID 7 Days #14 tab 10/18/22 Rx Loratadine [Claritin] 10 mg PO DAILY 10/18/22 10/18/22 History diphenhydrAMINE HCL [Benadryl 25 mg PO Q4H PRN 10/18/22 10/18/22 History Allergy] levETIRAcetam [Keppra] 500 mg PO DIRECTED 10/18/22 10/18/22 History predniSONE [Deltasone] 20 mg PO BID #8 tab 10/18/22 10/18/22 Rx Allergies Allergy/AdvReac Type Severity Reaction Status Date / Time lamotrigine [From Lamictal] Allergy Rash/Hives Verified 10/18/22 18:12 levofloxacin [From Levaquin] Allergy Rash/Hives Verified 10/18/22 17:59 proparacaine Allergy Unknown Verified 10/18/22 17:59 Sulfa (Sulfonamide Allergy Rash/Hives Verified 10/18/22 17:59 Antibiotics) codeine AdvReac Nausea & Verified 10/18/22 17:59 Vomiting Physical Examination - Vital Signs Vital Signs: Vital Signs Pulse Resp BP Pulse Ox 10/19/22 14:14 86 16 123/86 98 10/19/22 14:00 16 10/19/22 10:40 70 18 137/78 98 10/19/22 02:21 104 H 18 118/91 96 10/18/22 22:50 90 16 138/66 94 L 10/18/22 21:11 80 16 147/82 94 L 10/18/22 20:00 80 14 125/67 96 10/18/22 18:30 85 18 131/68 93 L 10/18/22 18:00 93 18 132/81 93 L 10/18/22 17:30 94 20 141/79 Intake and Output 10/19/22 10/19/22 10/19/22 06:59 14:59 22:59 Other: Voiding Method Toilet Gen.: The patient is well-nourished, well-developed and in no acute distress. HEENT: Head is normocephalic. There is evidence of ecchymosis surrounding the right eye. Fundus not visualized. There is no scleral icterus. Mucous memb ranes are moist. Neck: Supple Heart: Regular rate and rhythm Extremities: Without edema Neurological examination Mental status: The patient is awake, alert and oriented 3. Her speech is clear. There is no dysarthria or aphasia Cranial nerves: Pupils are equal at 2 mm and reactive. Visual romero are full to confrontation. Extraocular movements are intact. There is no nystagmus. Facial sensation is intact. There is no facial asymmetry. Hearing is grossly intact. Uvula and palate are midline. Shoulder shrug is symmetric. Tongue protrudes midline. Motor: Strength is 5/5 throughout. Sensation: Intact to light touch throughout. Coordination: Finger to nose and rapid alternating movements are intact. Tendon reflexes: 2+/4+ in the bilateral upper extremities. Bilateral patellar reflexes 3+/4+. Gait: Not assessed Results - Laboratory Findings CBC and BMP: 10/18/22 16:44 10/18/22 16:44 Abnormal Lab Findings: Abnormal Labs 10/18/22 10/18/22 12 16:44 16:44 02:21 Lymphocytes # 0.9 L Sodium 130 L Chloride 97 L Carbon Dioxide 12 L Creatinine 1.18 H Glucose 181 H ALT 40 H Alkaline Phosphatase 132 H Ur Leukocyte Esterase Moderate H Urine WBC 8 H Urine Mucus Rare H - Diagnostic Findings Comments: CT scan of the brain reveals no signs of intracranial hemorrhage. There is wilmer dence of a large right frontal scalp hematoma Assessment and Plan Assessment: 1. Breakthrough seizure secondary to discontinuation of antiepileptic medicatio ns because of side effects 2. Fall with resultant right orbital ecchymosis and edema 3. Hyponatremia Plan: 1. Agree with loading dose of Vimpat and maintenance dose of 50 mg twice daily 2. Repeat head CT 24 hours [address] first head CT following fall with head injury 3. If CT scan of brain continues to be negative for intracranial hemorrhage, the patient is neurologically stable for discharge Time with Patient: Greater than 30 (Spent 30 minutes examining patient and obtaining history from patient and family members. An additional 20 minutes was spent reviewing imaging reports, labs, documentation and preparing this note)
[2022-10-20] MEDS: SODIUM CHLORIDE 0.9% 1,000 ML IV SCH ×2 (06:37)
--- NOTE | 2022-10-20 09:02 | CT ---
EXAMINATION TYPE: CT brain wo con DATE OF EXAM: 10/20/2022 COMPARISON: 10/28/2022 HISTORY: F/u post seizure x2days ago. CT DLP: 1111.[address] of the brain was performed. The ventricles, basal cisterns and sulci overlying the cerebral convexities demonstrate mild enlargem ent. There is no evidence for intracranial hemorrhage or sulcal effacement. There is decreased attenuation about the periventricular white matter and deep white matter of both c erebral hemispheres, compatible with chronic small vessel ischemia. Differential diagnosis does inclu de demyelination. No mass effects are seen.No midline shift. Osseous calvarium is intact. Right frontal scalp hematoma is redemonstrated. Periorbital soft tissue swelling also noted. If symptoms persist consider MRI. IMPRESSION: 1. Age related atrophic and chronic small vessel ischemic change without acute intracranial process s een at this time. 2.Right frontal scalp hematoma is redemonstrated. Periorbital soft tissue swelling also noted.
[2022-10-20] MEDS: LACOSAMIDE 50 MG TABLET PO SCH (09:32)
[2022-10-20] MEDS ORDERED: diphenhydrAMINE 25 MG CAP PO PRN (09:38)
[2022-10-20] MEDS ORDERED: PANTOPRAZOLE 40 MG TABLET PO STA (09:42)
[2022-10-20] MEDS ORDERED: LORATADINE 10 MG TAB PO SCH (09:45)
[2022-10-20] MEDS ORDERED: allopurinoL 100 MG TAB PO SCH (09:45)
[2022-10-20] MEDS ORDERED: atenoloL 25 MG TAB PO SCH (09:45)
[2022-10-20] MEDS ORDERED: CALCIUM CARB-VIT D 500 MG-5 MCG TAB PO SCH (09:45)
[2022-10-20] MEDS ORDERED: LEVOTHYROXINE 25 MCG TAB PO SCH (09:45)
[2022-10-20 10:45] VITALS: BP 147/86; PULSE 86; RESP 18; TEMP 98.8
--- NOTE | 2022-10-20 11:14 | P.HPIM ---
History of Present Illness H&P Date: 10/19/22 Chief Complaint: Seizures 77 year old female presenting with chief complaint of seizure. Patient has had one previous seizure which took place on 08/15/2022. Patient was then started on Keppra 500 mg every 12hr. patient discontinued her Keppra yesterday as she had been recently breaking out in hives. She was evaluated here in the ER earlier today for the hives, no difficulty breathing or swallowing. She was instructed to continue holding her antiepileptic. Patient's was with her when she had her seizure today, he assisted her to the floor and states that the seizure lasted shorter than 1 minute. Patient is anxious here in the ER. Her left leg is twitching. No confusion, chest pain, difficulty breathing, abdominal pain, nausea, vomiting, headache, vision or hearing changes, numbness, tingling. She admits to some pain in the left leg from muscle spasms. When patient arrived to ER her left leg was continuing to twitch, which is typical with her seizures. -- CT of the brain shows no acute intracranial process there is remote injury to the right parietal region that was characterized on prior MRI. Patient was discussed with neurologist protein purification scientist Dr. Morgan, he advised starting Vimpat. He advised a 100 mg IV loading dose here in the ER and sending her home on 50 mg twice a day. On my reassessment patient responded well to Ativan, was feeling well enough to go home. When her nurse went in to discharge her patient states that her leg was feeling restless and she was concerned for an additional seizure. Review of Systems REVIEW OF SYSTEMS: CONSTITUTIONAL: No fever, no malaise, no fatigue. HEENT: No recent visual problems or hearing problems. Denied any sore throat. CARDIOVASCULAR: No chest pain, orthopnea, PND, no palpitations, no syncope. PULMONARY: No shortness of breath, no cough, no hemoptysis. GASTROINTESTINAL: No diarrhea, no nausea, no vomiting, no abdominal pain. NEUROLOGICAL: No headaches, no weakness, no numbness. HEMATOLOGICAL: Denies any bleeding or petechiae. GENITOURINARY: Denies any burning micturition, frequency, or urgency. MUSCULOSKELETAL/RHEUMATOLOGICAL: Denies any joint pain, swelling, or any muscle pain. ENDOCRINE: Denies any polyuria or polydipsia. The rest of the 14-point review of systems is negative. Past Medical History Past Medical History: GERD/Reflux, Hyperlipidemia, Hypertension, Renal Disease, Thyroid Disorder Additional Past Medical History / Comment(s): states "has kidney failure 45 GFR" History of Any Multi-Drug Resistant Organisms: None Reported Past Surgical History: Orthopedic Surgery Additional Past Surgical History / Comment(s): tendon release rt wrist,juan catar act,finger surg Past Anesthesia/Blood Transfusion Reactions: Motion Sickness Past Psychological History: No Psychological Hx Reported Smoking Status: Never smoker Past Alcohol Use History: None Reported Past Drug Use History: None Reported - Past Family History Mother Family Medical History: No Reported History Father Family Medical History: No Reported History Medications and Allergies Home Medications Medication Instructions Recorded Confirmed Type Atorvastatin [Lipitor] 40 mg PO HS 04/09/17 10/18/22 History Calcium Carbonate/Vitamin D3 1 tab PO DAILY 04/09/17 10/18/22 History [Calcium 600-Vit D3 800 Tab] Fish Oil/Dha/Epa [Fish Oil 1,200 1 cap PO DAILY 04/09/17 10/18/22 History mg Fish Oil] Levothyroxine Sodium [Synthroid] 25 mcg PO AC-[id number] 04/09/17 10/18/22 History atenoloL [Tenormin] 25 mg PO DAILY 04/09/17 10/18/22 History calcitrioL [Rocaltrol] 0.25 mcg PO FR 04/09/17 10/18/22 History hydroCHLOROthiazide [Hydrodiuril] 12.5 mg PO DAILY 04/09/17 10/18/22 History Candesartan Cilexetil 8 mg PO HS 08/15/22 10/18/22 History Ferrous Sulfate [Iron (65 MG 325 mg PO TU 08/15/22 10/18/22 History Elemental)] Omeprazole [PriLOSEC] 10 mg PO DAILY 08/15/22 10/18/22 History allopurinoL [Zyloprim] 100 mg PO DAILY 08/15/22 10/18/22 History Fluocinonide 0.05% Soln 1 applic TOPICAL DIRECTED 10/18/22 10/18/22 History Lacosamide 50 mg PO BID 7 Days #14 tab 10/18/22 Rx Loratadine [Claritin] 10 mg PO DAILY 10/18/22 10/18/22 History diphenhydrAMINE HCL [Benadryl 25 mg PO Q4H PRN 10/18/22 10/18/22 History Allergy] levETIRAcetam [Keppra] 500 mg PO DIRECTED 10/18/22 10/18/22 History predniSONE [Deltasone] 20 mg PO BID #8 tab 10/18/22 10/18/22 Rx Allergies Allergy/AdvReac Type Severity Reaction Status Date / Time lamotrigine [From Lamictal] Allergy Rash/Hives Verified 10/18/22 18:12 levofloxacin [From Levaquin] Allergy Rash/Hives Verified 10/18/22 17:59 proparacaine Allergy Unknown Verified 10/18/22 17:59 Sulfa (Sulfonamide Allergy Rash/Hives Verified 10/18/22 17:59 Antibiotics) codeine AdvReac Nausea & Verified 10/18/22 17:59 Vomiting Physical Exam Vitals: Vital Signs Pulse Resp BP Pulse Ox 10/19/22 10:40 70 18 137/78 98 10/19/22 02:21 104 H 18 118/91 96 10/18/22 22:50 90 16 138/66 94 L 10/18/22 21:11 80 16 147/82 94 L 10/18/22 20:00 80 14 125/67 96 10/18/22 18:30 85 18 131/68 93 L 10/18/22 18:00 93 18 132/81 93 L 10/18/22 17:30 94 20 141/79 10/18/22 16:21 114 H 22 152/78 97 Intake and Output 10/18/22 10/19/22 10/19/22 22:59 06:59 14:59 Other: Weight 79.379 kg General appearance: alert, anxious Head exam: Present: atraumatic, normocephalic, normal inspection Eye exam: Present: normal appearance, PERRL, EOMI. Absent: scleral icterus, conjunctival injection, periorbital swelling Neck exam: Present: normal inspection. Absent: tenderness Respiratory exam: Present: normal lung sounds bilaterally. Absent: respiratory distress, wheezes, rales, rhonchi, stridor Cardiovascular Exam: Present: normal rhythm, tachycardia, normal heart sounds. Absent: systolic murmur, diastolic murmur, rubs, gallop, clicks Neurological exam: Present: alert, oriented X3, CN II-XII intact Expanded Speech: Present: fluid speech Eye Response: (4) open spontaneously Motor Response: (6) obeys commands Verbal Response: (5) oriented Psychiatric exam: Present: anxious Skin exam: Present: warm, dry, intact, normal color. Absent: rash Results CBC & Chem 7: 10/18/22 16:44 10/18/22 16:44 Labs: Abnormal Lab Results - Last 24 Hours (Table) 10/18/22 10/18/22 10/19/22 Range/Units 16:44 16:44 02:21 Lymphocytes # 0.9 L (1.0-4.8) k/uL Sodium 130 L (137-145) mmol/L Chloride 97 L (98-107) mmol/L Carbon Dioxide 12 L (22-30) mmol/L Creatinine 1.18 H (0.52-1.04) mg/dL Glucose 181 H (74-99) mg/dL ALT 40 H (4-34) U/L Alkaline Phosphatase 132 H (38-126) U/L Ur Leukocyte Esterase Moderate H (Negative) Urine WBC 8 H (0-5) /hpf Urine Mucus Rare H (None) /hpf Assessment and Plan Assessment: 1. Breakthrough seizures; likely secondary to discontinuation of antiepileptic medications - Patient reports discontinuing Her about 2 months ago related to intolerance of side effects - Patient has been placed on IV Vimpat in a loading dose and is now maintained on 50 mg twice a day - Continue with neuro checks and seizure precautions for protocol - Neurology recommending repeat CT of head in 24 hours 2. Fall/right orbital ecchymosis/hematoma - Related to fall due to breakthrough seizures -- We will continue with neuro checks per protocol; monitor CBC closely -- Repeat CT of head and 24 hours to follow-up on closed head injury 3. Hyponatremia; mild; sodium at 1:30; likely not related to the breakthrough seizure; we will monitor electrolytes 4. Mild renal injury/dehydration; patient remains on IV fluid normal saline at a rate of 75 mL an hour 5. Hypothyroidism; levothyroxin 25 MCG daily 6. Hypertension; stable on atenolol 25 mg daily; Cozaar 50 mg by mouth daily at bedtime 7. Hyperlipidemia; Lipitor 40 mg by mouth daily at bedtime DVT prophylaxis; SCDs only, given closed head injury/hematoma CODE STATUS; full code
[2022-10-20] MEDS ORDERED: LOSARTAN 50 MG TAB PO SCH (21:00)
[2022-10-20] MEDS ORDERED: ATORVASTATIN 40 MG TAB PO SCH (21:00)
[2022-10-22] MEDS ORDERED: FERROUS SULFATE 325 MG TAB PO SCH (09:00)
== END 2022-10-20 14:45 | disposition home or self-care (01) ==
LOC: EC 16:13 → 3SCARD 23:11
PROVIDERS: ADMIT Internal Medicine; ATTEND Internal Medicine
DX: R56.9 Unspecified convulsions (principal); E87.1 Hypo-osmolality and hyponatremia; E86.0 Dehydration; I12.9 Hypertensive chronic kidney disease with stage 1 through stage 4 chronic kidney disease, or unspecified chronic kidney disease; N18.9 Chronic kidney disease, unspecified; S00.03XA Contusion of scalp, initial encounter; W01.10XA Fall on same level from slipping, tripping and stumbling with subsequent striking against unspecified object, initial encounter; T42.6X6A Underdosing of other antiepileptic and sedative-hypnotic drugs, initial encounter; Z91.128 Patient's intentional underdosing of medication regimen for other reason; K21.9 Gastro-esophageal reflux disease without esophagitis; E78.5 Hyperlipidemia, unspecified; E03.9 Hypothyroidism, unspecified; M47.812 Spondylosis without myelopathy or radiculopathy, cervical region; M79.605 Pain in left leg; M62.838 Other muscle spasm; F41.9 Anxiety disorder, unspecified; Z79.890 Hormone replacement therapy; Z79.52 Long term (current) use of systemic steroids; Z79.899 Other long term (current) drug therapy; Z88.1 Allergy status to other antibiotic agents; Z88.2 Allergy status to sulfonamides; Z88.4 Allergy status to anesthetic agent; Z88.5 Allergy status to narcotic agent; Z88.8 Allergy status to other drugs, medicaments and biological substances; Z98.42 Cataract extraction status, left eye; Z98.41 Cataract extraction status, right eye; Z98.890 Other specified postprocedural states
CPT/HCPCS: 96361 ×3; 96376; 96365; 96375; 99285; 36415; 93005; 80053; 80177; 82550; 83605; 83735; 85025; 81001; 80143; 80179; 70496; 70450 ×2; 70498; G0378 ×3; J2060; C9254; J7512; Q9967

== ENCOUNTER → 2023-02-19 | Outpatient (CLI) | payer MEDICARE ==
--- NOTE | 2023-02-19 23:42 | MR ---
EXAMINATION TYPE: MR brain wo/w con DATE OF EXAM: 02/19/2023 COMPARISON: MRI 08/16/2022 HISTORY: Malignant neoplasm of cerebrum TECHNIQUE: Multiplanar, multisequence images of the brain and brainstem is performed without and with IV contras t, utilizing 8 ml mL intravenous Gadavist . FINDINGS: Diffusion weighted images demonstrate no evidence of a recent infarct or other diffusion ab normality. There is remains a large area of abnormal signal involving the right thalamus measuring 3 x 2.6 cm result in mild compression of the third ventricle. No enhancement. There is moderate generalized degenerative change. Areas of abnormal signal involving the rashaun are hilton ggestive of remote ischemia. Appears to be evidence of previous craniotomy and surgery correlate clin ically. There also is an area of abnormal signal measuring 3.5 x 2.1 cm involving the right superior parietal lobe with the multifocal subcentimeter area of enhancement. Neoplastic process in the differential d iagnosis. This area was also present on the prior MRI. Area of abnormal signal involving the calvarium axial image 45 may BE postsurgical rather than neopla stic. There is diffuse and focal areas of abnormal signal involving the white matter on FLAIR imaging most typical remote ischemic change. Midline structures demonstrate normal morphology. The craniocervical junction appears within normal limits. Post contrast images demonstrate no abnormal enhancement. The dural venous sinuses appear pa tent. Images of chronic sinusitis noted. Orbits are symmetric. IMPRESSION: 1. There is a large area of abnormal signal persistent within the right thalamus measuring 3 x 2.6 cm with mild compression of the third ventricle. Ventricular size similar to prior exam. This is simila r to the MRI of 08/16/2022 and suspicious for neoplastic process. A glioma would be in the differentia l diagnosis. Correlate clinically. 2. There also is abnormal signal noted in the superior right parietal lobe with corresponding subcent imeter areas of enhancement. This also suspicious for neoplastic process. Largest nodule of enhanceme nt in the region measures approximately 4.4 x 4 mm. Correlate clinically. 3. Postsurgical changes with mild to moderate generalized degenerative change.
== END | disposition home or self-care (01) ==
LOC: RADMRIMAIN 20:15
PROVIDERS: ATTEND Radiology Radiation Oncology
DX: C71.0 Malignant neoplasm of cerebrum, except lobes and ventricles (principal); G93.89 Other specified disorders of brain
CPT/HCPCS: 70553; A9585

== ENCOUNTER 2023-04-14 15:46 | Emergency (ER) | payer MEDICARE ==
[2023-04-14 15:55] VITALS: RESP 18; TEMP 98.1
[2023-04-14 15:57] LABS: Glucose,Whole Blood 80 mg/dL (70-110)
[2023-04-14] MEDS ORDERED: LORazepam 2 MG/ML INJ IV STA (16:00)
[2023-04-14] MEDS ORDERED: SODIUM CHLORIDE 0.9% 1,000 ML IV STA (16:00)
[2023-04-14] MEDS ORDERED: DEXAMETHASONE SOD PHOSPHATE 10 MG/ML 1 ML VIAL IVP STA (16:00)
--- NOTE | 2023-04-14 16:03 | ED ---
General Adult HPI - General Chief complaint: Seizure Stated complaint: Seizure Time Seen by Provider: 04/14/23 15:48 Source: patient, EMS, RN notes reviewed Mode of arrival: EMS Limitations: no limitations - History of Present Illness Initial comments: Patient is a 77 year old female presenting to the emergency room for continued focal surgical seizures located in her abdomen and left lower extremity. She reports that she was at her neurologist earlier today and had an increased dose of Keppra administered along with 7.5 mg of Valium to treat her focal seizures without any response. She was advised that if the seizure continued to present to the emergency room. Unfortunately the seizure activity has continued. She reports some fatigue due to the consistent seizure activity; she denies any tonic-clonic like seizures or any loss of consciousness. She denies any other complaints or concerns this time including any chest pain, arsh rtness of breath, abdominal pain not related to her seizure activity, nausea, vomiting, fevers or chills. She reports that she recently completed her oral steroid regimen which she was on post radiation treatment for glioblastoma. She states that she was due for follow-up MRI in approximately 4 weeks to evaluate treatment efficacy. She is scheduled with oncology group tomorrow for follow-up from office. In addition to her glioblastoma she has a past medical history significant for GERD, hyperlipidemia, hypertension, chronic renal disease, hypothyroidism and CVA. - Related Data Home Medications Medication Instructions Recorded Confirmed Atorvastatin [Lipitor] 40 mg PO HS 04/09/17 04/14/23 Fish Oil/Dha/Epa [Fish Oil 1,200 1 cap PO DAILY 04/09/17 04/14/23 mg Fish Oil] Levothyroxine Sodium [Synthroid] 25 mcg PO DAILY 04/09/17 04/14/23 atenoloL [Tenormin] 25 mg PO DAILY 04/09/17 04/14/23 calcitrioL [Rocaltrol] 0.25 mcg PO FR 04/09/17 04/14/23 Candesartan Cilexetil 8 mg PO HS 08/15/22 04/14/23 Ferrous Sulfate [Iron (65 MG 325 mg PO TU 08/15/22 04/14/23 Elemental)] Omeprazole [PriLOSEC] 10 mg PO DAILY 08/15/22 04/14/23 allopurinoL [Zyloprim] 100 mg PO DAILY 08/15/22 04/14/23 Calcium Carbonate [Calcium] 600 mg PO DAILY 04/14/23 04/14/23 Sertraline [Zoloft] 100 mg PO DAILY 04/14/23 04/14/23 diazePAM [Valium] 5 mg PO DAILY PRN 04/14/23 04/14/23 levETIRAcetam [Keppra Xr] 1,000 mg PO TID 04/14/23 04/14/23 Previous Rx's Medication Instructions Recorded dexAMETHasone [Decadron] 6 mg PO DAILY 7 Days #7 tablet 04/14/23 Allergies Allergy/AdvReac Type Severity Reaction Status Date / Time cephalexin [From Keflex] Allergy Unknown Verified 04/14/23 17:52 lamotrigine [From Lamictal] Allergy Rash/Hives Verified 04/14/23 17:52 levofloxacin [From Levaquin] Allergy Rash/Hives Verified 04/14/23 17:52 proparacaine Allergy Unknown Verified 04/14/23 17:52 Sulfa (Sulfonamide Allergy Rash/Hives Verified 04/14/23 17:52 Antibiotics) codeine AdvReac Nausea & Verified 04/14/23 17:52 Vomiting erythromycin base AdvReac Nausea & Verified 04/14/23 17:52 Vomiting Review of Systems ROS Statement: Those systems with pertinent positive or pertinent negative responses have been documented in the HPI. ROS Other: All systems not noted in ROS Statement are negative. 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 Brain Cancer History of Any Multi-Drug Resistant Organisms: None Reported Past Surgical History: Orthopedic Surgery Additional Past Surgical History / Comment(s): tendon release rt wrist,juan cataract,finger surg Past Anesthesia/Blood Transfusion Reactions: Motion Sickness Past Psychological History: No Psychological Hx Reported Smoking Status: Never smoker Past Alcohol Use History: None Reported Past Drug Use History: None Reported - Past Family History Mother Family Medical History: No Reported History Father Family Medical History: No Reported History Occupational Seizure History - Commerical Driving History Currently uses [employer] for employment (including self-employed).: No What is your current occupation?: retired General Exam Limitations: no limitations General appearance: alert, in no apparent distress Head exam: Present: atraumatic, normocephalic, normal inspection Eye exam: Present: normal appearance, PERRL, EOMI. Absent: scleral icterus, conjunctival injection, periorbital swelling ENT exam: Present: normal exam, mucous membranes moist Neck exam: Present: normal inspection, full ROM Respiratory exam: Present: normal lung sounds bilaterally. Absent: respiratory distress, wheezes, rales, rhonchi, stridor Cardiovascular Exam: Present: regular rate, normal rhythm, normal heart sounds. Absent: systolic murmur, diastolic murmur, rubs, gallop, clicks GI/Abdominal exam: Present: normal bowel sounds, other (Lower abdominal wall spasms/ seizure activity). Absent: distended, tenderness, guarding, rebound, rigid Extremities exam: Present: other (Left lower extremity with focal seizure activity) Back exam: Present: normal inspection Neurological exam: Present: alert, oriented X3, CN II-XII intact Psychiatric exam: Present: flat affect Skin exam: Present: warm, dry, intact, normal color. Absent: rash Course Vital Signs 04/14/23 04/14/23 04/14/23 15:48 17:06 18:15 Temperature 98.1 F Pulse Rate 83 70 61 Respiratory 18 18 18 Rate Blood Pressure 139/96 118/70 118/70 O2 Sat by Pulse 97 95 94 L Oximetry 04/14/23 04/14/23 18:44 19:33 Temperature Pulse Rate 59 L 63 Respiratory 18 18 Rate Blood Pressure 124/62 127/86 O2 Sat by Pulse 93 L 96 Oximetry Medical Decision Making - Medical Decision Making Was pt. sent in by a medical professional or institution (, PA, J[employer] APPLICATION DEVELOPER, urgent care, hospital, or detention...) When possible be specific @ -Yes, advised by her neurologist to present to the emergency room seizure activity persisted. Did you speak to anyone other than the patient for history (EMS, parent, family, police, friend...)? What history was obtained from this source @ -No Did you review nursing and triage notes (agree or disagree)? Why? @ -I reviewed and agree with nursing and triage notes Were old charts reviewed (outside hosp., previous admission, EMS record, old EKG, old radiological studies, urgent care reports/EKG's, detention records)? Report findings @ -Yes, I reviewed most recent MRI on file from February 2023. Differential Diagnosis (chest pain, altered mental status, abdominal pain women, abdominal pain men, vaginal bleeding, weakness, fever, dyspnea, syncope, headache, dizziness, GI bleed, back pain, seizure, CVA, palpatations, mental health, musculoskeletal)? @ -Differential Seizure: Recurrent seizure disorder, febrile seizure, alcohol withdrawal, stimulants, meningitis, encephalitis, intercranial hemorrhage, intracranial tumor, stroke, eclampsia, thyrotoxicosis, hypocalcemia, hyponatremia, hypernatremia, hypomagnesemia, psychogenic, this is not meant to be an all-inclusive list. EKG interpreted by me (3pts min.). @ -None done X-rays interpreted by me (1pt min.). @ -None done CT interpreted by me (1pt min.). @ -CT of the brain without contrast: Demonstrates known right thalamus/basal ganglia left mass and lesion to right medial parietal lobe with edema in this location. Her radiologist report additional area in the medial right parietal lobe concerning for neoplastic process. U/S interpreted by me (1pt. min.). @ -None done What testing was considered but not performed or refused? (CT, X-rays, U/S, labs)? Why? @ -None What meds were considered but not given or refused? Why? @ -Anticonvulsants considered but deferred due to recent increase in oral Keppra dosing. Did you discuss the management of the patient with other professionals (professionals i.e. , PA, [employer] AP[employer] DEVELOPER, lab, RT, psych nurse, social science teacher, presidential helicopter crew chief, teacher, sanitation officer, rn case manager)? Give summary @ -Yes spoke with oncology, Dr. Stephens, regarding patient's presentation, response to treatment and workup findings. He advised okay for discharge home on oral steroids with follow-up with oncology. Was smoking cessation discussed for >3mins.? @ -No Was critical care preformed (if so, how long)? @ -No Were there social determinants of health that impacted care today? How? (Homelessness, low income, unemployed, alcoholism, drug addiction, transportation, low edu. Level, literacy, decrease access to med. care, long-term, rehab)? @ -No Was there de-escalation of care discussed even if they declined (Discuss DNR or withdrawal of care, Hospice)? DNR status @ -No What co-morbidities impacted this encounter? (DM, HTN, Smoking, COPD, CAD, Cancer, CVA, ARF, Chemo, Hep., AIDS, mental health diagnosis, sleep apnea, morbid obesity)? @ -Glioblastoma Was patient admitted / discharged? Hospital course, mention meds given and route, prescriptions, significant lab abnormalities, going to OR and other pertinent info. @ -77-year-old female presenting to the emergency room with focal seizure activity to left lower extremity and abdominal wall despite oral treatment with Valium at home and Keppra by her neurologist. No medications given by EMS. Will give 1 mg of Ativan. Recent radiation for glioblastoma and recent discontinuation of oral steroids will give dose of IV Decadron as well due to concern for cerebral edema being underlying etiology of seizure activity. Will obtain laboratory studies of CBC, CMP, lactic acid, magnesium and CK level. Will obtain computed tomography scan of the brain without contrast as well. Ativan and Decadron effective with resolution of focal seizure after medication administration. Patient monitored for 2 hours post medications with no recurrenc e of seizure activity. Overall laboratory studies stable. CBC without abnormalities. CMP shows low sodium 132 no other electrolyte abnormalities. Glucose normal. Liver enzymes and renal function normal. Lactic acid and CK normal. Computed tomography scan identified a new suspicious lesion in the right medial parietal lobe with corresponding vasogenic edema in addition to previously identified thalamus/basal ganglia mass. These findings were discussed with patient along with oncology team. Oncology recommends stable for discharge home with oral steroids and close follow-up with oncology. Recommendations advised to patient and spouse at bedside. They are agreeable to this plan. Questions and concerns answered. Strict return parameters to the emergency room discussed. Will discharge home in stable condition on oral steroids to treat vasogenic edema along with continuation of antiepileptics and benzodiazepines as needed for focal seizure activity advising follow-up with oncologist and neurologist. Undiagnosed new problem with uncertain prognosis? @ -No Drug Therapy requiring intensive monitoring for toxicity (Heparin, Nitro, Insu genesis, Cardizem)? @ -No Were any procedures done? @ -No Diagnosis/symptom? @ -Focal seizure Acute, or Chronic, or Acute on Chronic? @ -Acute on chronic Uncomplicated (without systemic symptoms) or Complicated (systemic symptoms)? @ -Uncomplicated Side effects of treatment? @ -No Exacerbation, Progression, or Severe Exacerbation? @ -No Poses a threat to life or bodily function? How? (Chest pain, [place], [place], pneumonia, PE, COPD, DKA, ARF, appy, cholecystitis, CVA, Diverticulitis, Homicidal, Suicidal, threat to staff... and all critical care pts) @ -No Case discussed with Dr. Martinez. - Lab Data Result diagrams: 04/14/23 16:04 04/14/23 16:04 Lab Results 04/14/23 04/14/23 04/14/23 Range/Units 15:55 16:04 16:04 WBC 6.7 (3.8-10.6) k/uL RBC 4.56 (3.80-5.40) m/uL Hgb 14.3 (11.4-16.0) gm/dL Hct 43.4 (34.0-46.0) % MCV 95.1 (80.0-100.0) fL MCH 31.3 (25.0-35.0) pg MCHC 33.0 (31.0-37.0) g/dL RDW 14.7 (11.5-15.5) % Plt Count 210 (150-450) k/uL MPV 6.7 Neutrophils % 60 % Lymphocytes % 29 % Monocytes % 6 % Eosinophils % 2 % Basophils % 0 % Neutrophils # 4.1 (1.3-7.7) k/uL Lymphocytes # 1.9 (1.0-4.8) k/uL Monocytes # 0.4 (0-1.0) k/uL Eosinophils # 0.1 (0-0.7) k/uL Basophils # 0.0 (0-0.2) k/uL Sodium 132 L (137-145) mmol/L Potassium 4.2 (3.5-5.1) mmol/L Chloride 101 (98-107) mmol/L Carbon Dioxide 22 (22-30) mmol/L Anion Gap 9 mmol/L BUN 15 (7-17) mg/dL Creatinine 0.98 (0.52-1.04) mg/dL Est GFR (CKD-EPI)AfAm 65 (>60 ml/min/1.73 sqM) Est GFR (CKD-EPI)NonAf 56 (>60 ml/min/1.73 sqM) Glucose 87 (74-99) mg/dL POC Glucose (mg/dL) 80 (70-110) mg/dL POC Glu Weight Control Lecturer ID Billy Gupta Plasma Lactic Acid Pj (0.7-2.0) mmol/L Calcium 8.9 (8.4-10.2) mg/dL Magnesium 1.7 (1.6-2.3) mg/dL Total Bilirubin 0.6 (0.2-1.3) mg/dL AST 30 (14-36) U/L ALT 34 (4-34) U/L Alkaline Phosphatase 108 (38-126) U/L CK-MB (CK-2) (0.0-2.4) ng/mL Total Protein 6.4 (6.3-8.2) g/dL Albumin 3.8 (3.5-5.0) g/dL 04/14/23 04/14/23 Range/Units 16:04 16:04 WBC (3.8-10.6) k/uL RBC (3.80-5.40) m/uL Hgb (11.4-16.0) gm/dL Hct (34.0-46.0) % MCV (80.0-100.0) fL MCH (25.0-35.0) pg MCHC (31.0-37.0) g/dL RDW (11.5-15.5) % Plt Count (150-450) k/uL MPV Neutrophils % % Lymphocytes % % Monocytes % % Eosinophils % % Basophils % % Neutrophils # (1.3-7.7) k/uL Lymphocytes # (1.0-4.8) k/uL Monocytes # (0-1.0) k/uL Eosinophils # (0-0.7) k/uL Basophils # (0-0.2) k/uL Sodium (137-145) mmol/L Potassium (3.5-5.1) mmol/L Chloride (98-107) mmol/L Carbon Dioxide (22-30) mmol/L Anion Gap mmol/L BUN (7-17) mg/dL Creatinine (0.52-1.04) mg/dL Est GFR (CKD-EPI)AfAm (>60 ml/min/1.73 sqM) Est GFR (CKD-EPI)NonAf (>60 ml/min/1.73 sqM) Glucose (74-99) mg/dL POC Glucose (mg/dL) (70-110) mg/dL POC Glu Weight Control Lecturer ID Plasma Lactic Acid Pj 1.4 (0.7-2.0) mmol/L Calcium (8.4-10.2) mg/dL Magnesium (1.6-2.3) mg/dL Total Bilirubin (0.2-1.3) mg/dL AST (14-36) U/L ALT (4-34) U/L Alkaline Phosphatase (38-126) U/L CK-MB (CK-2) 0.6 (0.0-2.4) ng/mL Total Protein (6.3-8.2) g/dL Albumin (3.5-5.0) g/dL - Radiology Data Radiology results: report reviewed, image reviewed Disposition Clinical Impression: Focal seizure Disposition: HOME SELF-CARE Condition: Stable Instructions (If sedation given, give patient instructions): Seizure/Epilepsy Discharge Instructions & Follow-Up Additional Instructions: Please continue your Decadron daily until advised otherwise by oncology and/or your neurologist. Please follow-up with her oncologist as scheduled tomorrow. Please continue your follow-up appointments with your neurologist as well. Anamaria kay return to the Emergency Department if symptoms worsen or any other concerns. Prescriptions: dexAMETHasone [Decadron] 6 mg PO DAILY 7 Days #7 tablet Is patient prescribed a controlled substance at d/c from ED?: No Referrals: Dave Briones DO [Primary Care Provider] - 1-2 days Corrine Stephens MD [STAFF PHYSICIAN] - 04/15/23 Time of Disposition: 19:28
[2023-04-14 16:15] LABS: Basophils % (A) 0 %; Eosinophils # (A) 0.1 k/uL (0-0.7); Eosinophils % (A) 2 %; HCT 43.4 % (34.0-46.0); HGB 14.3 gm/dL (11.4-16.0); Lymphocytes # (A) 1.9 k/uL (1.0-4.8); Lymphocytes % (A) 29 %; MCH 31.3 pg (25.0-35.0); MCV 95.1 fL (80.0-100.0); Mean Platelet Volume 6.7; Monocytes # (A) 0.4 k/uL (0-1.0); Monocytes % (A) 6 %; Neutrophils # (A) 4.1 k/uL (1.3-7.7); Neutrophils % (A) 60 %; Platelet Count 210 k/uL (150-450); RBC 4.56 m/uL (3.80-5.40); RDW 14.7 % (11.5-15.5); WBC 6.7 k/uL (3.8-10.6)
[2023-04-14 16:33] LABS: ALT 34 U/L (4-34); AST 30 U/L (14-36); African American GFR (CKD) 65 (>60 ml/min/1.73 sqM); Albumin 3.8 g/dL (3.5-5.0); Alkaline Phosphatase 108 U/L (38-126); Anion Gap 9 mmol/L; Blood Urea Nitrogen 15 mg/dL (7-17); Calcium 8.9 mg/dL (8.4-10.2); Carbon Dioxide 22 mmol/L (22-30); Chloride 101 mmol/L (98-107); Glucose 87 mg/dL (74-99); Magnesium 1.7 mg/dL (1.6-2.3); Non-African American GFR(CKD) 56 (>60 ml/min/1.73 sqM); Potassium 4.2 mmol/L (3.5-5.1); Sodium 132 mmol/L (137-145); Total Bilirubin 0.6 mg/dL (0.2-1.3); Total Protein 6.4 g/dL (6.3-8.2)
--- NOTE | 2023-04-14 17:06 | CT ---
EXAMINATION TYPE: CT brain wo con CT DLP: 1100.4 mGycm, Automated exposure control for dose reduction was used. DATE OF EXAM: 04/14/2023 4:49 PM COMPARISON: 10/20/2022, MRI 02/19/2023 CLINICAL INDICATION:Female, 77 years old with history of seizure activity, seizure TECHNIQUE: Brain: Axial CT images of the brain were obtained with coronal and sagittal reformats created and rev iewed. Contrast used: None. Oral contrast used: None. FINDINGS: Brain: Extra-axial spaces: No abnormal extra-axial fluid collections. Ventricular system: Within normal limits Cerebral parenchyma: New from prior hypodense region within the right basal ganglia asymmetric lower attenuation of the right thalamus. Abnormal signal is also seen in the medial aspect of the right par ietal lobe. There is vasogenic edema within the deep white matter surrounding the right parietal courtney on. No acute intraparenchymal hemorrhage. The remainder of the ayala-white junctions are well differe ntiated. Cerebellum: Unremarkable. Mass effect: No evidence of midline shift. Intracranial vasculature: unremarkable Soft tissues: Normal. Calvarium/osseous structures: No depressed skull fracture. Paranasal sinuses and mastoid air cells: Right mucous retention cyst partially visualized.. Visualized orbits: Orbital contents are intact. IMPRESSION: 1. Known right thalamus/basal ganglia mass remains present and is similar to MRI 02/19/2023 given dif ferences in technique. 2. Additional area of abnormal ayala-white matter differentiation involving the medial right parietal lobe. This finding is also suspicious for neoplastic process. There is surrounding vasogenic edema.
[2023-04-14 19:37] VITALS: BP 127/86; PULSE 63
== END 2023-04-14 20:01 | disposition home or self-care (01) ==
LOC: EC 15:46
DX: R56.9 Unspecified convulsions (principal); E78.5 Hyperlipidemia, unspecified; I12.9 Hypertensive chronic kidney disease with stage 1 through stage 4 chronic kidney disease, or unspecified chronic kidney disease; N18.9 Chronic kidney disease, unspecified; E03.9 Hypothyroidism, unspecified; E11.22 Type 2 diabetes mellitus with diabetic chronic kidney disease; K21.9 Gastro-esophageal reflux disease without esophagitis; Z86.73 Personal history of transient ischemic attack (TIA), and cerebral infarction without residual deficits; Z88.1 Allergy status to other antibiotic agents; Z88.2 Allergy status to sulfonamides; Z88.5 Allergy status to narcotic agent; Z79.899 Other long term (current) drug therapy; Z79.890 Hormone replacement therapy
CPT/HCPCS: 36415; 80053; 82553; 83605; 83735; 85025; 70450; 99285; 96374; 96375; 96361; J2060; J1100

== ENCOUNTER → 2023-05-12 | Outpatient (CLI) | payer MEDICARE ==
--- NOTE | 2023-05-14 09:10 | MR ---
EXAMINATION TYPE: MR brain wo/w con DATE OF EXAM: 05/12/2023 9:07 PM CLINICAL INDICATION:Female, 77 years old with history of C71.9; Brain tumor, Brain biopsy 01-08-2023 COMPARISON: 02/19/2023 TECHNIQUE: Multi planar, multi sequence imaging was performed through the brain including: T1, T2, In version recovery, susceptibility weighted imaging and gradient echo imaging and Diffusion weighted im aging. The patient was then given intravenous contrast and multi planar, T1 fat-saturation images wer e obtained. IV Contrast: 8 cc Gadavist FINDINGS: Increased T2 signal within the right thalamus measuring similarly at 3.8 x 2.1 x 3.6 cm. There is corby pected post biopsy changes to the right aspect with tract extending from the craniotomy site. There i s relatively no significant postcontrast enhancement within this mass. There are 2 lesions which are increasing in size and demonstrating enhancement. These are located in the within the subcortical white matter within the right posterior frontal/parietal region measuring 11 x 9 mm, previously 6 x 5 mm and 8 x 5 mm previously 7 x 4 mm. The ayala-white junctions, ventricular system, basal cisterns appear unremarkable. Diffusion-weighted imaging shows no evidence of restricted diffusion to suggest acute/subacute infarct. Intracranial art erial flow voids are maintained. Midline structures show no abnormality. Scattered foci of high T2 si gnal intensity are seen within the periventricular white matter. The bone marrow signal is within normal limits. Paranasal sinuses and mastoid air cells: No significant paranasal sinus disease. Visualized orbits: Bilateral aphakia IMPRESSION: 1. Right thalamus mass with postbiopsy change. Overall size is not significantly changed from prior exam on 02/19/2023. 2. There are 2 enhancing masses within the subcortical white matter of the right frontal/parietal re gion with surrounding vasogenic edema which have increased in size from prior. 3. Minimal nonspecific white matter changes, likely related to small vessel ischemic disease
== END | disposition home or self-care (01) ==
LOC: RADMRIMAIN 20:15
PROVIDERS: ATTEND Family Medicine
DX: C71.9 Malignant neoplasm of brain, unspecified (principal); R90.82 White matter disease, unspecified
CPT/HCPCS: 70553; A9585

== ENCOUNTER → 2023-07-28 | Outpatient (CLI) | payer MEDICARE ==
--- NOTE | 2023-07-28 15:16 | MR ---
EXAMINATION TYPE: MR brain wo/w con DATE OF EXAM: 07/28/2023 2:33 PM COMPARISON: NONE HISTORY: Hx of malignant neoplasm, left side weakness CONTRAST: Patient received 8.5 mL intravenous Gadavist gadolinium contrast. Multiplanar and multispin-echo imaging of the brain was performed . Pre and post contrast enhanced i mages are obtained. The ventricles, basal cisterns and sulci overlying the cerebral convexities are mildly enlarged. There is evidence of mild periventricular white matter ischemic demyelination. There is a non-enhancing mass right thalamus measuring 3.7 x 2.3 cm versus 3.8 x 2.1 cm previously. S uspected postbiopsy changes are noted at the 10:00 position of the mass. Biopsy tract is noted. There is increasing vasogenic edema noted. Within the high right posterior frontal lobe in a para sagittal location is a 2.4 x 1.5 cm heterogene ously enhancing mass. Previously 2 enhancing nodules are located in this region. There is increasing vasogenic edema. Remote deep white matter insults are also noted. No acute edema is seen on diffusion weighted imaging. There is no evidence for midline shift. Acute intracranial hemorrhage or extra-axial collection is not evident. No enhancing lesions are seen. The paranasal sinuses and mastoid air cells are well-aerated. IMPRESSION: 1. Stable right thalamic mass. 2. Enlarging mass as discussed high right frontal lobe posteriorly with increasing vasogenic edema.
== END | disposition home or self-care (01) ==
LOC: RADMRIMAIN 13:42
PROVIDERS: ATTEND Radiology Radiation Oncology
DX: C71.0 Malignant neoplasm of cerebrum, except lobes and ventricles (principal); C71.3 Malignant neoplasm of parietal lobe; G93.9 Disorder of brain, unspecified
CPT/HCPCS: 70553; A9585

== ENCOUNTER → 2023-09-24 | Outpatient (CLI) | payer MEDICARE ==
--- NOTE | 2023-09-24 20:45 | MR ---
EXAMINATION TYPE: MR brain wo/w con DATE OF EXAM: 09/24/2023 7:17 PM CLINICAL INDICATION:Female, 78 years old with history of C71.9 MALIGNANT NEOPLASM OF BRAIN, UNSPECIFI ED; [facility], Brain cancer Aug 2022, Tx with Chemo, Seizures COMPARISON: 06/27/2023 TECHNIQUE: Multi planar, multi sequence imaging was performed through the brain including: T1, T2, In version recovery, susceptibility weighted imaging and gradient echo imaging and Diffusion weighted im aging. The patient was then given intravenous contrast and multi planar, T1 fat-saturation images wer e obtained. IV Contrast: 8.5 cc Gadavist FINDINGS: Redemonstration of right high FLAIR signal with some surrounding vasogenic edema. Lesion me asures similarly at 3.7 x 2.2 cm. There is blooming artifact within this lesion suggesting prior hemo rrhage. Right parietal heterogenous lesion with increased enhancement is mildly increased in size compared to prior measuring at least 26 x 20 mm, previously 23 x 16 mm. There may be cement restricted diffusion around this lesion. Blooming artifact in this region suggestive of hemorrhage. No additional masses definitively visualized. Intracranial arterial flow voids are maintained. Midline structures show no abnormality. Scattered fo ci of high T2 signal intensity are seen within the periventricular white matter. The susceptibility w eighted images do not reveal any evidence for micro-hemorrhage. The bone marrow signal is within normal limits. Paranasal sinuses and mastoid air cells: No significant paranasal sinus disease. Visualized orbits: Bilateral aphakia. IMPRESSION: 1. Increase in right parietal region intra-axial mass with surrounding vasogenic edema compared to . 2. Right thalamic mass definitely demonstrate enhancement and is similar in size to prior. 3. No new intra-axial enhancing lesions identified. 4. Nonspecific white matter changes, likely related to small vessel ischemic disease.
== END | disposition home or self-care (01) ==
LOC: RADMRIMAIN 18:00
PROVIDERS: ATTEND Psychiatry & Neurology Neurology
DX: C71.9 Malignant neoplasm of brain, unspecified (principal); G93.89 Other specified disorders of brain
CPT/HCPCS: 70553; A9585

== ENCOUNTER → 2023-11-25 | Outpatient (CLI) | payer MEDICARE ==
--- NOTE | 2023-11-26 21:57 | MR ---
EXAMINATION TYPE: MR brain wo con DATE OF EXAM: 11/25/2023 12:53 PM CLINICAL INDICATION:Female, 78 years old with history of C71.9 MALIGNANT NEOPLASM OF BRAIN, UNSPECIFI ED; [facility], F/U Brain Tumor COMPARISON: 09/24/2023.. TECHNIQUE: Multi planar, multi sequence imaging was performed through the brain including: T1, T2, In version recovery, Diffusion weighted imaging, and gradient echo imaging. No gadolinium was given. Unable to access vein for Contrast, 4 x attempted including Rad RN FINDINGS: Redemonstration of right thalamus high FLAIR signal with some surrounding vasogenic edema. measures similarly at 3.7 x 2.2 cm. There is blooming artifact extending down to this lesion suggesting prior hemorrhage possibly from biopsy. Right parietal heterogenous lesion is poorly visualized due to lack of contrast. On prior measuring a t least 26 x 20 mm the margins are not well visualized. There may be cement restricted diffusion arou nd this lesion. Blooming artifact in this region suggestive of hemorrhage. No additional masses definitively visualized. Intracranial arterial flow voids are maintained. Midline structures show no abnormality. Scattered fo ci of high T2 signal intensity are seen within the periventricular white matter. The bone marrow signal is within normal limits. Paranasal sinuses and mastoid air cells: No significant paranasal sinus disease. Visualized orbits: Bilateral aphakia. IMPRESSION: 1. Limited evaluation secondary to lack of IV access. Mildly increased vasogenic edema/white matter changes in the right hemisphere suggests progression of disease. Right thalamic mass appears stable. The right parietal region is poorly visualized due to lack of IV contrast. Consider follow-up contras t only MRI T1-weighted imaging. 2. Limiting evaluation for new intra-axial lesions without IV contrast. 3. Nonspecific white matter changes, likely related to small vessel ischemic disease.
== END | disposition home or self-care (01) ==
LOC: RADMRIMAIN 11:26
PROVIDERS: ATTEND Psychiatry & Neurology Neurology
DX: C71.9 Malignant neoplasm of brain, unspecified (principal); G93.89 Other specified disorders of brain
CPT/HCPCS: 70551

== ENCOUNTER → 2023-12-05 | Outpatient (CLI) | payer MEDICARE ==
--- NOTE | 2023-12-05 09:35 | MR ---
EXAMINATION TYPE: MR brain w con DATE OF EXAM: 12/05/2023 COMPARISON: 11/25/2023 HISTORY: Malignant neoplasm CONTRAST: Performed utilizing 8 mL intravenous Gadavist gadolinium contrast. TECHNIQUE: Multiplanar, multiecho imaging on a 3.0 Rosibel magnet is performed through the brain. Stud y is performed within 24 hours of arrival to the hospital. The craniovertebral junction is normal. The pituitary is normal. There is a 2.3 transverse by 3.0 AP by 3.2 cm craniocaudal dimension ring-enhancing lesion at the rig ht centrum semiovale vertex. Vasogenic edema is through the centrum semiovale. This edema appears to extend into the right thalamus. Craniotomy defect is in the right parietal region. No additional abnormal enhancing lesions are evide nt. There is a hypodensity within the right thalamus may be an old lacunar infarct. Ventricles and sulci are appropriate for the patient age. Significant effacement is not identified. N o midline shift is evident no ventricular compression is identified IMPRESSION: 1. 3 cm ring-enhancing lesion right centrum semiovale with vasogenic edema.
== END ==
LOC: CATHCVL 07:29
PROVIDERS: ATTEND Psychiatry & Neurology Neurology
DX: C71.9 Malignant neoplasm of brain, unspecified (principal)
CPT/HCPCS: 36410; 76937; 70552; A9585

== ENCOUNTER → 2024-02-09 | Outpatient (CLI) | payer MEDICARE ==
--- NOTE | 2024-02-10 21:30 | MR ---
EXAMINATION TYPE: MR brain wo/w con DATE OF EXAM: 02/09/2024 COMPARISON: 09/24/2023 HISTORY: Glioblastoma, Hemiparesis of left nondominant side due to non-cerebrovascular etiology, RT c ompleted 03/2023, Chemo completed 10/2023 CONTRAST: Performed utilizing 9 mL intravenous Gadavist gadolinium contrast. TECHNIQUE: Multiplanar, multiecho imaging on a 3.0 Rosibel magnet is performed through the brain. Stud y is performed within 24 hours of arrival to the hospital. The craniovertebral junction is normal. The pituitary is normal. Diffusion-weighted imaging is performed. There is some hyperintensity within the right posterior par ietal region correlates with the prior surgical approach. There is a hyperintensity on T2-weighted sequences within the right thalamus. This currently measures 2.4 x 3.5 cm. Previous measurement 2.2 x 3.3 cm. There is a small hypointensity along the lateral arnaldo rder which is hyperintense on the inversion recovery sequences this could be small old hemorrhage. Th ere are multiple punctate hyperintensities within the right parietal occipital vertex likely related to prior hemorrhage. No acute hemorrhage is identified White matter changes are through the right parietal occipital region. Some mild left posterior horn l ateral ventricle periventricular white matter changes are present. Some white matter changes are with in the brainstem Ventricles and sulci are prominent for the patient age. Focal effacement or expected to affect is not evident No suspicious enhancement is evident. No enhancement of the known lesion is evident IMPRESSION: 1. Minimal increased prominence of the right thalamic mass. Adjacent white matter changes extending i nto the vertex of the right parietal occipital region are stable from comparison
== END | disposition home or self-care (01) ==
LOC: RADMRIMAIN 14:25
PROVIDERS: ATTEND Psychiatry & Neurology Neurology
DX: C71.9 Malignant neoplasm of brain, unspecified (principal); G81.94 Hemiplegia, unspecified affecting left nondominant side; G93.89 Other specified disorders of brain
CPT/HCPCS: 70553; A9585

== ENCOUNTER → 2024-03-30 | Outpatient (CLI) | payer MEDICARE ==
--- NOTE | 2024-04-06 11:30 | MR ---
EXAMINATION TYPE: MR brain wo/w con DATE OF EXAM: 03/30/2024 COMPARISON: 02/09/2024 HISTORY: Glioblastoma, F/U MRI. CONTRAST: Performed utilizing 9 mL intravenous Gadavist gadolinium contrast. TECHNIQUE: Multiplanar, multiecho imaging on a 3.0 Rosibel magnet is performed through the brain. Stud y is performed within 24 hours of arrival to the hospital. The craniovertebral junction is normal. The pituitary is normal. Diffusion-weighted imaging is performed. No abnormal hyperintensity is present to suggest an acute i ntracranial infarct or acute ischemic change. There maybe some postsurgical change with hyperintense, diffusion at the posterior right vertex. This is diminished from comparison. There is some chronic-appearing white matter changes within the brainstem there is diffuse confluent white matter change in the right centrum semiovale and prince radiata. Vasogenic edema and postradiat ion changes are within the differential. No mass effect is evident. Ex vacuo effect mis not identifie d. There is fullness of the left thalamus which may have some mild mass effect on the inferior lateral v entricle. This measures 3.5 x 2.2 cm. Previous measurement 3.5 x 2.4 cm right Ventricles and sulci are appropriate for the patient age. The hyperintense collection on T2 sequence are stable. IMPRESSION: 1. Right thalamic fullness is stable in size and appearance from the comparison study. 2. Stable periventricular and deep white matter hyperintensity within the right cerebral can be postr adiation changes. Findings are stable from comparison.
== END | disposition home or self-care (01) ==
LOC: RADMRIMAIN 13:27
PROVIDERS: ATTEND Psychiatry & Neurology Neurology
DX: G93.89 Other specified disorders of brain (principal); C71.9 Malignant neoplasm of brain, unspecified
CPT/HCPCS: 70553; A9585

== ENCOUNTER 2024-04-13 09:51 | Inpatient (IN) | payer MEDICARE ==
[2024-04-13 11:43] LABS: Basophils # (A) 0.1 k/uL (0-0.2); Basophils % (A) 1 %; Eosinophils % (A) 0 %; HCT 45.5 % (34.0-46.0); HGB 14.8 gm/dL (11.4-16.0); Lymphocytes # (A) 1.1 k/uL (1.0-4.8); Lymphocytes % (A) 9 %; MCH 32.8 pg (25.0-35.0); MCHC 32.5 g/dL (31.0-37.0); MCV 100.7 fL (80.0-100.0); Macrocytosis Slight; Mean Platelet Volume 8.9; Monocytes # (A) 0.6 k/uL (0-1.0); Monocytes % (A) 5 %; Neutrophils # (A) 10.3 k/uL (1.3-7.7); Neutrophils % (A) 85 %; RBC 4.52 m/uL (3.80-5.40); RDW 15.8 % (11.5-15.5); WBC 12.2 k/uL (3.8-10.6)
--- NOTE | 2024-04-13 12:09 | XR ---
EXAMINATION TYPE: XR chest 2V DATE OF EXAM: 04/13/2024 11:44 AM CLINICAL INDICATION:Female, 78 years old with history of altered mental status; [facility] COMPARISON: Chest radiographs from 08/15/2022 TECHNIQUE: XR chest 2V Frontal and lateral views of the chest. FINDINGS: Lungs/Pleura: Low lung volumes are present. There is no evidence of pleural effusion, focal consolida tion, or pneumothorax. Pulmonary vascularity: Unremarkable. Heart/mediastinum: Cardiomediastinal silhouette is unremarkable. Musculoskeletal: No acute osseous pathology. IMPRESSION: Low lung volumes with a generalized hazy appearance which could represent atelectasis versus pulmonar y edema correlate with serum BNP.
--- NOTE | 2024-04-13 12:09 | CT ---
EXAMINATION TYPE: CT brain wo con CT DLP: 1109.4 mGycm, Automated exposure control for dose reduction was used. DATE OF EXAM: 04/13/2024 11:39 AM COMPARISON: 04/14/2023. 03/30/2024 MRI CLINICAL INDICATION:Female, 78 years old with history of Altered mental status, AMS TECHNIQUE: Brain: Axial CT images of the brain were obtained with coronal and sagittal reformats created and rev iewed. Contrast used: None. Oral contrast used: None. FINDINGS: Brain: Extra-axial spaces: No abnormal extra-axial fluid collections. Ventricular system: Within normal limits Cerebral parenchyma: Encephalomalacia the right frontal lobe from prior intervention. Similar appear ance of the right thalamus compared to prior 04/14/2023. No acute intraparenchymal hemorrhage or mass e ffect. The ayala-white junction is well differentiated. Cerebellum: Unremarkable. Mass effect: No evidence of midline shift. Intracranial vasculature: unremarkable Soft tissues: Normal. Calvarium/osseous structures: No depressed skull fracture. Paranasal sinuses and mastoid air cells: Mild scattered paranasal sinus disease. Craniotomy changes o n the right. Visualized orbits: Bilaterally aphakia. IMPRESSION: 1. Similar right thalamus/basal ganglia mass. 2. Posttreatment changes right parietal/posterior frontal region 3. No new acute intracranial process. Consider MRI if there is concern.
--- NOTE | 2024-04-13 12:35 | ED ---
Altered Mental Status HPI - General Chief Complaint: Altered Mental Status Stated Complaint: AMS Time Seen by Provider: 04/13/24 09:55 Source: EMS Mode of arrival: EMS Limitations: altered mental status, physical limitation - History of Present Illness Initial Comments: 78-year-old female with past medical history of glioblastoma who presents emergency department with altered mental status. Family is at bedside and provides the history. States that the patient was more confused this morning. She seemed like she was having inability to stand up. She was also having some hallucinations where she was grabbing for a glass that was not on the side t able. She is on current treatment for glioblastoma. She had a PET scan on the which demonstrated that her disease was stable. She denies any recent medication changes. No nausea or vomiting. No headaches or visual changes. Patient is able to appropriately hold a conversation. She denies any abdominal pain. No chest pain or difficulty breathing. She is not currently on any antibiotics but did recently finish some for UTI. She denies any fevers. No other alleviating, precipitating modifying factors - Related Data Home Medications Medication Instructions Recorded Confirmed Atorvastatin [Lipitor] 40 mg PO HS 04/09/17 04/13/24 Fish Oil/Dha/Epa [Fish Oil 1,200 1 cap PO DAILY@1200 04/09/17 04/13/24 mg Fish Oil] Levothyroxine Sodium [Synthroid] 25 mcg PO DAILY 04/09/17 04/13/24 atenoloL [Tenormin] 25 mg PO DAILY 04/09/17 04/13/24 calcitrioL [Rocaltrol] 0.25 mcg PO Q7D 04/09/17 04/13/24 Ferrous Sulfate [Iron (65 MG 325 mg PO TU@1200 08/15/22 04/13/24 Elemental)] Sertraline [Zoloft] 100 mg PO DAILY 04/14/23 04/13/24 levETIRAcetam [Keppra Xr] 1,500 mg PO BID 04/14/23 04/13/24 Lacosamide [Vimpat] 150 mg PO BID 12/02/23 04/13/24 Calcium Carbonate/Vitamin D3 1 tab PO DAILY@1200 04/13/24 04/13/24 [Calcium 600 mg-Vit D3 5 mcg (200 unit)] Candesartan [Atacand] 16 mg PO DAILY 04/13/24 04/13/24 Furosemide [Lasix] 20 mg PO DAILY 04/13/24 04/13/24 Omeprazole [PriLOSEC] 20 mg PO DAILY 04/13/24 04/13/24 Ondansetron [Zofran] 4 mg PO Q4H PRN 04/13/24 04/13/24 dexAMETHasone 2 mg PO BID 04/13/24 04/13/24 diazePAM [Valium] 5 mg PO Q8HR PRN 04/13/24 04/13/24 lidocaine HCL [lidocaine HCL 5 ml PO QID PRN 04/13/24 04/13/24 Viscous] Allergies Allergy/AdvReac Type Severity Reaction Status Date / Time cephalexin [From Keflex] Allergy Unknown Verified 04/13/24 12:58 lamotrigine [From Lamictal] Allergy Rash/Hives Verified 04/13/24 12:58 levofloxacin [From Levaquin] Allergy Rash/Hives Verified 04/13/24 12:58 Sulfa (Sulfonamide Allergy Rash/Hives Verified 04/13/24 12:58 Antibiotics) codeine AdvReac Nausea & Verified 04/13/24 12:58 Vomiting erythromycin base AdvReac Nausea & Verified 04/13/24 12:58 Vomiting Review of Systems ROS Statement: Those systems with pertinent positive or pertinent negative responses have been documented in the HPI. ROS Other: All systems not noted in ROS Statement are negative. 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 Brain Cancer glioblastoma, last seizure 1 week ago History of Any Multi-Drug Resistant Organisms: None Reported Past Surgical History: Orthopedic Surgery Additional Past Surgical History / Comment(s): tendon release rt wrist,juan cataract,finger surg, brain biopsy 2022 Past Anesthesia/Blood Transfusion Reactions: No Reported Reaction, Motion Sickness Past Psychological History: No Psychological Hx Reported Smoking Status: Never smoker - Past Family History Mother Family Medical History: No Reported History Father Family Medical History: No Reported History General Exam Limitations: altered mental status, physical limitation General appearance: alert, in no apparent distress Head exam: Present: atraumatic, normocephalic, normal inspection Eye exam: Present: normal appearance, PERRL, EOMI. Absent: scleral icterus, conjunctival injection, periorbital swelling ENT exam: Present: normal exam, mucous membranes moist Neck exam: Present: normal inspection. Absent: tenderness, meningismus, lymphadenopathy Respiratory exam: Present: normal lung sounds bilaterally. Absent: respiratory distress, wheezes, rales, rhonchi, stridor Cardiovascular Exam: Present: regular rate, normal rhythm, normal heart sounds. Absent: systolic murmur, diastolic murmur, rubs, gallop, clicks GI/Abdominal exam: Present: soft, normal bowel sounds. Absent: distended, tenderness, guarding, rebound, rigid Extremities exam: Present: normal inspection, full ROM, normal capillary refill. Absent: tenderness, pedal edema, joint swelling, calf tenderness Back exam: Present: normal inspection Neurological exam: Present: alert, oriented X3, CN II-XII intact Psychiatric exam: Present: normal affect, normal mood Skin exam: Present: warm, dry, intact, normal color. Absent: rash Course Vital Signs 04/13/24 04/13/24 04/13/24 09:52 11:54 13:46 Temperature Pulse Rate 65 65 64 Pulse Rate [ Pulse Oximetery ] Respiratory 14 16 18 Rate Blood Pressure 132/63 139/70 141/75 Blood Pressure [Right Arm] Blood Pressure [Sitting] O2 Sat by Pulse 96 96 95 Oximetry 04/13/24 04/13/24 04/13/24 16:28 17:20 20:01 Temperature 98.4 F Pulse Rate 70 75 Pulse Rate [ 63 Pulse Oximetery ] Respiratory 20 20 18 Rate Blood Pressure 151/84 143/80 Blood Pressure [Right Arm] Blood Pressure 150/82 [Sitting] O2 Sat by Pulse 96 95 95 Oximetry 04/13/24 04/13/24 04/13/24 22:14 23:12 23:15 Temperature 97.0 F L Pulse Rate 75 67 Pulse Rate [ 64 Pulse Oximetery ] Respiratory 20 20 18 Rate Blood Pressure 143/80 122/50 Blood Pressure 151/86 [Right Arm] Blood Pressure [Sitting] O2 Sat by Pulse 98 94 L 94 L Oximetry 04/14/24 04/14/24 04/14/24 02:00 04:00 07:46 Temperature 97.4 F L Pulse Rate Pulse Rate [ 64 75 85 Pulse Oximetery ] Respiratory 18 18 16 Rate Blood Pressure Blood Pressure 167/94 170/94 [Right Arm] Blood Pressure [Sitting] O2 Sat by Pulse 94 L 97 Oximetry 04/14/24 04/14/24 04/14/24 12:00 15:48 19:55 Temperature Pulse Rate 69 Pulse Rate [ 78 72 Pulse Oximetery ] Respiratory 16 18 19 Rate Blood Pressure 154/71 Blood Pressure 174/82 167/96 [Right Arm] Blood Pressure [Sitting] O2 Sat by Pulse 95 97 96 Oximetry 04/14/24 20:09 Temperature 97.6 F Pulse Rate 69 Pulse Rate [ Pulse Oximetery ] Respiratory 19 Rate Blood Pressure 154/71 Blood Pressure [Right Arm] Blood Pressure [Sitting] O2 Sat by Pulse 96 Oximetry Medical Decision Making - Medical Decision Making Was pt. sent in by a medical professional or institution (, PA, [employer], urgent care, hospital, or care home...) When possible be specific @ -No Did you speak to anyone other than the patient for history (EMS, parent, family, police, friend...)? What history was obtained from this source @ -Spoke with the patient's daughter and Did you review nursing and triage notes (agree or disagree)? Why? @ -I reviewed and agree with nursing and triage notes Were old charts reviewed (outside hosp., previous admission, EMS record, old EKG, old radiological studies, urgent care reports/EKG's, care home records)? Report findings @ -No old charts were reviewed Differential Diagnosis (chest pain, altered mental status, abdominal pain women, abdominal pain men, vaginal bleeding, weakness, fever, dyspnea, syncope, headache, dizziness, GI bleed, back pain, seizure, CVA, palpatations, mental health, musculoskeletal)? @ -Differential Altered Mental Status: Hypoglycemia, DKA, hypercapnia, ETOH, overdose, CO poisoning, trauma, myxedema coma, HTN encephalopathy, infection, encephalitis, psychosis, intercranial hemorrhage, hepatic encephalopathy, meningitis, CVA, this is not meant to be an all-inclusive list EKG interpreted by me (3pts min.). @ -Yes and demonstrates sinus rhythm with a rate of 66. OR interval 233. QRS 78. QTc of 392. No acute ST segment elevations or depressions X-rays interpreted by me (1pt min.). @ -Yes and demonstrates low lung volumes CT interpreted by me (1pt min.). @ -Yes and the size of the patient's brain lesion is stable U/S interpreted by me (1pt. min.). @ -None done What testing was considered but not performed or refused? (CT, X-rays, U/S, l abs)? Why? @ -None What meds were considered but not given or refused? Why? @ -None Did you discuss the management of the patient with other professionals (professionals i.e. , PA, [employer], lab, RT, psych nurse, social services analyst, salesperson recreational vehicles, teacher, worldwide chief creative officer, renal case manager)? Give summary @ -Spoke with Светлана from [facility] for admission Was smoking cessation discussed for >3mins.? @ -No Was critical care preformed (if so, how long)? @ -No Were there social determinants of health that impacted care today? How? (Homelessness, low income, unemployed, alcoholism, drug addiction, transportation, low edu. Level, literacy, decrease access to med. care, group home, rehab)? @ -No Was there de-escalation of care discussed even if they declined (Discuss DNR or withdrawal of care, Hospice)? DNR status @ -No What co-morbidities impacted this encounter? (DM, HTN, Smoking, COPD, CAD, Cancer, CVA, ARF, Chemo, Hep., AIDS, mental health diagnosis, sleep apnea, morbid obesity)? @ -Brain cancer Was patient admitted / discharged? Hospital course, mention meds given and route, prescriptions, significant lab abnormalities, going to OR and other pertinent info. @ -Upon arrival patient was seen and evaluated in room 15. Thorough history and physical exam was performed. Patient is alert and able to answer questions. IV was established. Laboratory studies are conducted. Chest x-ray was performed. CT of the brain was performed. Patient has stable appearance of her brain lesion. Due to patient's confusion I did recommend admission for neurology consultation. Spoke with Светлана from [facility] who agreed to admit the patient Undiagnosed new problem with uncertain prognosis? @ -No Drug Therapy requiring intensive monitoring for toxicity (Heparin, Nitro, Insulin, Cardizem)? @ -No Were any procedures done? @ -No Diagnosis/symptom? @ -Acute encephalopathy Acute, or Chronic, or Acute on Chronic? @ - acute Uncomplicated (without systemic symptoms) or Complicated (systemic symptoms)? @ -Complicated Side effects of treatment? @ -No Exacerbation, Progression, or Severe Exacerbation? @ -No Poses a threat to life or bodily function? How? (Chest pain, [place], [place], pneumonia, PE, COPD, DKA, ARF, appy, cholecystitis, CVA, Diverticulitis, Homicidal, Suicidal, threat to staff... and all critical care pts) @ -No - Lab Data Result diagrams: 04/18/24 07:38 04/18/24 07:38 Lab Results 04/13/24 04/13/24 04/13/24 Range/Units 11:17 11:17 14:34 WBC 12.2 H (3.8-10.6) k/uL RBC 4.52 (3.80-5.40) m/uL Hgb 14.8 (11.4-16.0) gm/dL Hct 45.5 (34.0-46.0) % MCV 100.7 H (80.0-100.0) fL MCH 32.8 (25.0-35.0) pg MCHC 32.5 (31.0-37.0) g/dL RDW 15.8 H (11.5-15.5) % Plt Count (150-450) k/uL MPV 8.9 Neutrophils % 85 % Lymphocytes % 9 % Monocytes % 5 % Eosinophils % 0 % Basophils % 1 % Neutrophils # 10.3 H (1.3-7.7) k/uL Lymphocytes # 1.1 (1.0-4.8) k/uL Monocytes # 0.6 (0-1.0) k/uL Eosinophils # 0.0 (0-0.7) k/uL Basophils # 0.1 (0-0.2) k/uL Manual Slide Review Performed Anisocytosis Macrocytosis Slight PT 10.0 (10.0-12.5) sec INR 0.9 (<1.2) APTT 21.3 L (22.0-30.0) sec Sodium (137-145) mmol/L Potassium (3.5-5.1) mmol/L Chloride (98-107) mmol/L Carbon Dioxide (22-30) mmol/L Anion Gap mmol/L BUN (7-17) mg/dL Creatinine (0.52-1.04) mg/dL Est GFR (CKD-EPI)AfAm (>60 ml/min/1.73 sqM) Est GFR (CKD-EPI)NonAf (>60 ml/min/1.73 sqM) Glucose (74-99) mg/dL Calcium (8.4-10.2) mg/dL Total Bilirubin (0.2-1.3) mg/dL AST (14-36) U/L ALT (4-34) U/L Alkaline Phosphatase (38-126) U/L Troponin I 0.057 H* (0.000-0.034) ng/mL NT-Pro-B Natriuret Pep pg/mL Total Protein (6.3-8.2) g/dL Albumin (3.5-5.0) g/dL Procalcitonin (0.02-0.09) ng/mL TSH (0.465-4.680) mIU/L Urine Color Urine Appearance (Clear) Urine pH (5.0-8.0) Ur Specific [place] (1.001-1.035) Urine Protein (Negative) Urine Glucose (UA) (Negative) Urine Ketones (Negative) Urine Blood (Negative) Urine Nitrite (Negative) Urine Bilirubin (Negative) Urine Urobilinogen (<2.0) mg/dL Ur Leukocyte Esterase (Negative) Salicylates mg/dL Urine Opiates Screen (NotDetected) Ur Oxycodone Screen (NotDetected) Urine Methadone Screen (NotDetected) Acetaminophen ug/mL Ur Barbiturates Screen (NotDetected) U Tricyclic Antidepress (NotDetected) Ur Phencyclidine Scrn (NotDetected) Ur Amphetamines Screen (NotDetected) U Methamphetamines Scrn (NotDetected) U Benzodiazepines Scrn (NotDetected) Urine Cocaine Screen (NotDetected) U Marijuana (THC) Screen (NotDetected) Serum Alcohol mg/dL 04/13/24 04/13/24 04/13/24 Range/Units 14:34 16:48 17:54 WBC (3.8-10.6) k/uL RBC (3.80-5.40) m/uL Hgb (11.4-16.0) gm/dL Hct (34.0-46.0) % MCV (80.0-100.0) fL MCH (25.0-35.0) pg MCHC (31.0-37.0) g/dL RDW (11.5-15.5) % Plt Count (150-450) k/uL MPV Neutrophils % % Lymphocytes % % Monocytes % % Eosinophils % % Basophils % % Neutrophils # (1.3-7.7) k/uL Lymphocytes # (1.0-4.8) k/uL Monocytes # (0-1.0) k/uL Eosinophils # (0-0.7) k/uL Basophils # (0-0.2) k/uL Manual Slide Review Anisocytosis Macrocytosis PT (10.0-12.5) sec INR (<1.2) APTT (22.0-30.0) sec Sodium 134 L (137-145) mmol/L Potassium 3.9 (3.5-5.1) mmol/L Chloride 103 (98-107) mmol/L Carbon Dioxide 25 (22-30) mmol/L Anion Gap 6 mmol/L BUN 24 H (7-17) mg/dL Creatinine 0.98 (0.52-1.04) mg/dL Est GFR (CKD-EPI)AfAm 64 (>60 ml/min/1.73 sqM) Est GFR (CKD-EPI)NonAf 56 (>60 ml/min/1.73 sqM) Glucose 102 H (74-99) mg/dL Calcium 8.8 (8.4-10.2) mg/dL Total Bilirubin 1.1 (0.2-1.3) mg/dL AST 32 (14-36) U/L ALT 46 H (4-34) U/L Alkaline Phosphatase 101 (38-126) U/L Troponin I 0.046 H* (0.000-0.034) ng/mL NT-Pro-B Natriuret Pep 460 pg/mL Total Protein 6.1 L (6.3-8.2) g/dL Albumin 3.4 L (3.5-5.0) g/dL Procalcitonin (0.02-0.09) ng/mL TSH 2.840 (0.465-4.680) mIU/L Urine Color Yellow Urine Appearance Clear (Clear) Urine pH 5.5 (5.0-8.0) Ur Specific [place] 1.019 (1.001-1.035) Urine Protein Trace H (Negative) Urine Glucose (UA) Negative (Negative) Urine Ketones Negative (Negative) Urine Blood Negative (Negative) Urine Nitrite Negative (Negative) Urine Bilirubin Negative (Negative) Urine Urobilinogen <2.0 (<2.0) mg/dL Ur Leukocyte Esterase Negative (Negative) Salicylates <1.0 mg/dL Urine Opiates Screen Not Detected (NotDetected) Ur Oxycodone Screen Not Detected (NotDetected) Urine Methadone Screen Not Detected (NotDetected) Acetaminophen <10.0 ug/mL Ur Barbiturates Screen Not Detected (NotDetected) U Tricyclic Antidepress Not Detected (NotDetected) Ur Phencyclidine Scrn Not Detected (NotDetected) Ur Amphetamines Screen Not Detected (NotDetected) U Methamphetamines Scrn Not Detected (NotDetected) U Benzodiazepines Scrn Detected H (NotDetected) Urine Cocaine Screen Not Detected (NotDetected) U Marijuana (THC) Screen Not Detected (NotDetected) Serum Alcohol <10 mg/dL 04/13/24 04/14/24 04/14/24 Range/Units 20:20 13:19 13:19 WBC 14.3 H (3.8-10.6) k/uL RBC 4.16 (3.80-5.40) m/uL Hgb 14.8 (11.4-16.0) gm/dL Hct 43.0 (34.0-46.0) % MCV 103.3 H (80.0-100.0) fL MCH 35.6 H (25.0-35.0) pg MCHC 34.4 (31.0-37.0) g/dL RDW 16.2 H (11.5-15.5) % Plt Count 155 (150-450) k/uL MPV 8.1 Neutrophils % 87 % Lymphocytes % 6 % Monocytes % 6 % Eosinophils % 0 % Basophils % 1 % Neutrophils # 12.4 H (1.3-7.7) k/uL Lymphocytes # 0.8 L (1.0-4.8) k/uL Monocytes # 0.8 (0-1.0) k/uL Eosinophils # 0.0 (0-0.7) k/uL Basophils # 0.1 (0-0.2) k/uL Manual Slide Review Anisocytosis Slight Macrocytosis Moderate PT (10.0-12.5) sec INR (<1.2) APTT (22.0-30.0) sec Sodium 132 L (137-145) mmol/L Potassium 4.2 (3.5-5.1) mmol/L Chloride 102 (98-107) mmol/L Carbon Dioxide 24 (22-30) mmol/L Anion Gap 6 mmol/L BUN 19 H (7-17) mg/dL Creatinine 0.85 (0.52-1.04) mg/dL Est GFR (CKD-EPI)AfAm 77 (>60 ml/min/1.73 sqM) Est GFR (CKD-EPI)NonAf 67 (>60 ml/min/1.73 sqM) Glucose 134 H (74-99) mg/dL Calcium 8.6 (8.4-10.2) mg/dL Total Bilirubin (0.2-1.3) mg/dL AST (14-36) U/L ALT (4-34) U/L Alkaline Phosphatase (38-126) U/L Troponin I 0.046 H* (0.000-0.034) ng/mL NT-Pro-B Natriuret Pep 480 pg/mL Total Protein (6.3-8.2) g/dL Albumin (3.5-5.0) g/dL Procalcitonin (0.02-0.09) ng/mL TSH (0.465-4.680) mIU/L Urine Color Urine Appearance (Clear) Urine pH (5.0-8.0) Ur Specific [place] (1.001-1.035) Urine Protein (Negative) Urine Glucose (UA) (Negative) Urine Ketones (Negative) Urine Blood (Negative) Urine Nitrite (Negative) Urine Bilirubin (Negative) Urine Urobilinogen (<2.0) mg/dL Ur Leukocyte Esterase (Negative) Salicylates mg/dL Urine Opiates Screen (NotDetected) Ur Oxycodone Screen (NotDetected) Urine Methadone Screen (NotDetected) Acetaminophen ug/mL Ur Barbiturates Screen (NotDetected) U Tricyclic Antidepress (NotDetected) Ur Phencyclidine Scrn (NotDetected) Ur Amphetamines Screen (NotDetected) U Methamphetamines Scrn (NotDetected) U Benzodiazepines Scrn (NotDetected) Urine Cocaine Screen (NotDetected) U Marijuana (THC) Screen (NotDetected) Serum Alcohol mg/dL 04/14/24 04/14/24 Range/Units 13:19 13:19 WBC (3.8-10.6) k/uL RBC (3.80-5.40) m/uL Hgb (11.4-16.0) gm/dL Hct (34.0-46.0) % MCV (80.0-100.0) fL MCH (25.0-35.0) pg MCHC (31.0-37.0) g/dL RDW (11.5-15.5) % Plt Count (150-450) k/uL MPV Neutrophils % % Lymphocytes % % Monocytes % % Eosinophils % % Basophils % % Neutrophils # (1.3-7.7) k/uL Lymphocytes # (1.0-4.8) k/uL Monocytes # (0-1.0) k/uL Eosinophils # (0-0.7) k/uL Basophils # (0-0.2) k/uL Manual Slide Review Anisocytosis Macrocytosis PT (10.0-12.5) sec INR (<1.2) APTT (22.0-30.0) sec Sodium (137-145) mmol/L Potassium (3.5-5.1) mmol/L Chloride (98-107) mmol/L Carbon Dioxide (22-30) mmol/L Anion Gap mmol/L BUN (7-17) mg/dL Creatinine (0.52-1.04) mg/dL Est GFR (CKD-EPI)AfAm (>60 ml/min/1.73 sqM) Est GFR (CKD-EPI)NonAf (>60 ml/min/1.73 sqM) Glucose (74-99) mg/dL Calcium (8.4-10.2) mg/dL Total Bilirubin (0.2-1.3) mg/dL AST (14-36) U/L ALT (4-34) U/L Alkaline Phosphatase (38-126) U/L Troponin I 0.039 H* (0.000-0.034) ng/mL NT-Pro-B Natriuret Pep pg/mL Total Protein (6.3-8.2) g/dL Albumin (3.5-5.0) g/dL Procalcitonin 0.19 H (0.02-0.09) ng/mL TSH (0.465-4.680) mIU/L Urine Color Urine Appearance (Clear) Urine pH (5.0-8.0) Ur Specific [place] (1.001-1.035) Urine Protein (Negative) Urine Glucose (UA) (Negative) Urine Ketones (Negative) Urine Blood (Negative) Urine Nitrite (Negative) Urine Bilirubin (Negative) Urine Urobilinogen (<2.0) mg/dL Ur Leukocyte Esterase (Negative) Salicylates mg/dL Urine Opiates Screen (NotDetected) Ur Oxycodone Screen (NotDetected) Urine Methadone Screen (NotDetected) Acetaminophen ug/mL Ur Barbiturates Screen (NotDetected) U Tricyclic Antidepress (NotDetected) Ur Phencyclidine Scrn (NotDetected) Ur Amphetamines Screen (NotDetected) U Methamphetamines Scrn (NotDetected) U Benzodiazepines Scrn (NotDetected) Urine Cocaine Screen (NotDetected) U Marijuana (THC) Screen (NotDetected) Serum Alcohol mg/dL Disposition Clinical Impression: Acute encephalopathy Disposition: ADMITTED IP TO THIS [facility] Condition: Stable Is patient prescribed a controlled substance at d/c from ED?: No Time of Disposition: 15:29 Decision to Admit Reason: Admit from EC Decision Date: 04/13/24 Decision Time: 15:29
[2024-04-13 15:00] LABS: ALT 46 U/L (4-34); Acetaminophen <10.0 ug/mL; African American GFR (CKD) 64 (>60 ml/min/1.73 sqM); Albumin 3.4 g/dL (3.5-5.0); Alcohol <10 mg/dL; Anion Gap 6 mmol/L; Blood Urea Nitrogen 24 mg/dL (7-17); Calcium 8.8 mg/dL (8.4-10.2); Carbon Dioxide 25 mmol/L (22-30); Chloride 103 mmol/L (98-107); Glucose 102 mg/dL (74-99); Non-African American GFR(CKD) 56 (>60 ml/min/1.73 sqM); Salicylate <1.0 mg/dL; Sodium 134 mmol/L (137-145); Total Bilirubin 1.1 mg/dL (0.2-1.3); Total Protein 6.1 g/dL (6.3-8.2)
[2024-04-13 15:06] LABS: AST 32 U/L (14-36); Alkaline Phosphatase 101 U/L (38-126); INR 0.9 (<1.2); Potassium 3.9 mmol/L (3.5-5.1)
[2024-04-13 15:07] LABS: Partial Thromboplastin Time 21.3 sec (22.0-30.0)
[2024-04-13 15:09] LABS: NT-Pro-B-Type Natriuretic Pept 460 pg/mL
[2024-04-13] MEDS ORDERED: NALOXONE 0.4 MG/ML 1 ML VIAL IV PRN (15:44)
[2024-04-13] MEDS ORDERED: ONDANSETRON 4 MG TAB PO PRN (15:45)
[2024-04-13] MEDS ORDERED: LIDOCAINE VISCOUS 2% 15 ML CUP PO PRN (15:45)
[2024-04-13] MEDS ORDERED: diazePAM 5 MG TAB PO PRN (15:45)
[2024-04-13 16:56] LABS: Appearance,Urine Clear (Clear); Bilirubin,Urine Negative (Negative); Blood,Urine Negative (Negative); Color,Urine Yellow; Glucose,Urine (UA) Negative (Negative); Ketones,Urine Negative (Negative); Leukocyte Esterase,Urine Negative (Negative); Nitrite,Urine Negative (Negative); PH, Urine 5.5 (5.0-8.0); Protein,Urine Trace (Negative); Specific Gravity,Urine 1.019 (1.001-1.035); Urobilinogen,Urine <2.0 mg/dL (<2.0)
[2024-04-13 17:06] LABS: Amphetamine Screen,Urine Not Detected (NotDetected); Barbiturate Screen,Urine Not Detected (NotDetected); Benzodiazepines Screen,Urine Detected (NotDetected); Cocaine Screen,Urine Not Detected (NotDetected); Methadone Screen, Urine Not Detected (NotDetected); Opiate Screen,Urine Not Detected (NotDetected); Oxycodone Screen, Urine Not Detected (NotDetected); Phencyclidine Screen,Urine Not Detected (NotDetected); Tricyclic Antidepressant,Urine Not Detected (NotDetected); Urn Cannabinoid Scrn Not Detected (NotDetected)
[2024-04-13] MEDS: LACOSAMIDE 150 MG TABLET PO SCH (20:58)
[2024-04-13] MEDS: ATORVASTATIN 40 MG TAB PO SCH (20:59)
[2024-04-13] MEDS: dexAMETHasone 2 MG TAB PO SCH (20:59)
--- NOTE | 2024-04-13 23:56 | P.HPIM ---
History of Present Illness Patient is a pleasant 78 years old female with past medical history of glioblastoma multiform a (s/p surgical resection and radiotherapy Also she has history of stroke from chronic left hemiparesis. 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 Patient currently On seizure medication. She is on Vimpat 150 mg twice daily and Keppra 1500 mg twice daily also she is on dexamethasone 2-3 times per day. Also she was on Valium as needed for seizure. Patient family at bedside states that her last seizure was over the last January but 1 week ago she had another seizure with abnormal movements of the right upper extremity and they gave her vomiting which helped control and her jerking movements. Patient currently is very lethargic, awake and alert and following commands, she is mildly confused. She is oriented about place time and person. She looks tired but she denies headache or dizziness. She has left chronic weakness of the legs and upper extremities. She denies GI or urinary symptoms. No chest pain or dyspnea. She is afebrile She has unremarkable INR, BMP liver enzymes Urinalysis is negative She has mild leukocytosis of 12,000 while she is on steroids dexamethasone Troponin is mildly elevated 0.05 Negative salicylate acetaminophen and serum alcohol level EKG showing sinus rhythm at [address]-T changes Chest x-ray is negative but because of poor quality suspicious for atelectasis versus edema. CT of the brain showing no acute process but previously seen right thalamus basal ganglia mass with postsurgical change of the right parietal and posterior frontal regions. 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 Brain Cancer glioblastoma, last seizure 1 week ago History of Any Multi-Drug Resistant Organisms: None Reported Past Surgical History: Orthopedic Surgery Additional Past Surgical History / Comment(s): tendon release rt wrist,juan cataract,finger surg, brain biopsy 2022 Past Anesthesia/Blood Transfusion Reactions: No Reported Reaction, Motion Sickness Past Psychological History: No Psychological Hx Reported Smoking Status: Never smoker - Past Family History Mother Family Medical History: No Reported History Father Family Medical History: No Reported History Medications and Allergies Home Medications Medication Instructions Recorded Confirmed Type Atorvastatin [Lipitor] 40 mg PO HS 04/09/17 04/13/24 History Fish Oil/Dha/Epa [Fish Oil 1,200 1 cap PO DAILY@1200 04/09/17 04/13/24 History mg Fish Oil] Levothyroxine Sodium [Synthroid] 25 mcg PO DAILY 04/09/17 04/13/24 History atenoloL [Tenormin] 25 mg PO DAILY 04/09/17 04/13/24 History calcitrioL [Rocaltrol] 0.25 mcg PO Q7D 04/09/17 04/13/24 History Ferrous Sulfate [Iron (65 MG 325 mg PO TU@1200 08/15/22 04/13/24 History Elemental)] Sertraline [Zoloft] 100 mg PO DAILY 04/14/23 04/13/24 History levETIRAcetam [Keppra Xr] 1,500 mg PO BID 04/14/23 04/13/24 History Lacosamide [Vimpat] 150 mg PO BID 12/02/23 04/13/24 History Calcium Carbonate/Vitamin D3 1 tab PO DAILY@1200 04/13/24 04/13/24 History [Calcium 600 mg-Vit D3 5 mcg (200 unit)] Candesartan [Atacand] 16 mg PO DAILY 04/13/24 04/13/24 History Furosemide [Lasix] 20 mg PO DAILY 04/13/24 04/13/24 History Omeprazole [PriLOSEC] 20 mg PO DAILY 04/13/24 04/13/24 History Ondansetron [Zofran] 4 mg PO Q4H PRN 04/13/24 04/13/24 History dexAMETHasone 2 mg PO BID 04/13/24 04/13/24 History diazePAM [Valium] 5 mg PO Q8HR PRN 04/13/24 04/13/24 History lidocaine HCL [lidocaine HCL 5 ml PO QID PRN 04/13/24 04/13/24 History Viscous] Allergies Allergy/AdvReac Type Severity Reaction Status Date / Time cephalexin [From Keflex] Allergy Unknown Verified 04/13/24 12:58 lamotrigine [From Lamictal] Allergy Rash/Hives Verified 04/13/24 12:58 levofloxacin [From Levaquin] Allergy Rash/Hives Verified 04/13/24 12:58 Sulfa (Sulfonamide Allergy Rash/Hives Verified 04/13/24 12:58 Antibiotics) codeine AdvReac Nausea & Verified 04/13/24 12:58 Vomiting erythromycin base AdvReac Nausea & Verified 04/13/24 12:58 Vomiting Physical Exam Vitals: Vital Signs Temp Pulse Pulse Resp BP BP Pulse Ox 04/13/24 20:01 75 18 143/80 95 04/13/24 17:20 70 20 151/84 95 04/13/24 16:28 98.4 F 63 20 150/82 96 04/13/24 13:46 64 18 141/75 95 04/13/24 11:54 65 16 139/70 96 04/13/24 09:52 65 14 132/63 96 Intake and Output 04/13/24 04/13/24 04/13/24 06:59 14:59 22:59 Other: Weight 99.337 kg -GENERAL: The patient is alert and oriented x3, slow to respond, mildly lethargic, not in any acute distress. Well developed, well nourished. HEENT: Pupils are round and equally reacting to light. EOMI. No scleral icterus. No conjunctival pallor. Normocephalic, atraumatic. No pharyngeal erythema. No thyromegaly. CARDIOVASCULAR: S1 and S2 present. No murmurs, rubs, or gallops. PULMONARY: Chest is clear to auscultation, no wheezing , no crackles. ABDOMEN: Soft, nontender, nondistended, normoactive bowel sounds. No palpable organomegaly. MUSCULOSKELETAL: No joint swelling or deformity. -EXTREMITIES: No cyanosis, clubbing,. 2+ bilateral pitting leg edema with different area of superficial ulceration and scab yellowish discharge, right leg is warm and has continued with more ulceration and erythema NEUROLOGICAL: Gross neurological examination did not reveal any focal deficits. SKIN: No rashes. no petechiae. Results CBC & Chem 7: 04/13/24 11:17 04/13/24 14:34 Labs: Abnormal Lab Results - Last 24 Hours (Table) 04/13/24 04/13/24 04/13/24 Range/Units 11:17 11:17 14:34 WBC 12.2 H (3.8-10.6) k/uL MCV 100.7 H (80.0-100.0) fL RDW 15.8 H (11.5-15.5) % Neutrophils # 10.3 H (1.3-7.7) k/uL APTT 21.3 L (22.0-30.0) sec Sodium (137-145) mmol/L BUN (7-17) mg/dL Glucose (74-99) mg/dL ALT (4-34) U/L Troponin I 0.057 H* (0.000-0.034) ng/mL Total Protein (6.3-8.2) g/dL Albumin (3.5-5.0) g/dL Urine Protein (Negative) U Benzodiazepines Scrn (NotDetected) 04/13/24 04/13/24 04/13/24 Range/Units 14:34 16:48 17:54 WBC (3.8-10.6) k/uL MCV (80.0-100.0) fL RDW (11.5-15.5) % Neutrophils # (1.3-7.7) k/uL APTT (22.0-30.0) sec Sodium 134 L (137-145) mmol/L BUN 24 H (7-17) mg/dL Glucose 102 H (74-99) mg/dL ALT 46 H (4-34) U/L Troponin I 0.046 H* (0.000-0.034) ng/mL Total Protein 6.1 L (6.3-8.2) g/dL Albumin 3.4 L (3.5-5.0) g/dL Urine Protein Trace H (Negative) U Benzodiazepines Scrn Detected H (NotDetected) Assessment and Plan Assessment: Altered mental status, could be metabolic/toxic encephalopathy secondary to medication effect, with history of brain tumor s/p radiochemotherapy. CT showed right thalamus and basal ganglia mass Focal seizures on multiple AED, with recent seizure like activity of the right upper extremity 1 week prior to hospitalization Possible right lower extremity cellulitis History of stroke and left hemiparesis Bilateral leg edema with superficial ulceration suspicious for cellulitis Hypertension Mild leukocytosis secondary to steroid effect Elevated troponin, rule out cardiac causes Obesity with BMI of 37.6 Plan: Patient on multiple seizure medication, Continue with current Keppra Vimpat and [place] as needed Neurology consult Continue with dexamethasone Check echocardiogram Start IV Lasix Start cefazolin Labs and medication were reviewed.. Continue same treatment. Continue with symptomatic treatment. Resume home medication. Monitor labs and vitals. DVT and GI prophylaxis. Further recommendations as per clinical course of the patient DVT prophylaxis: Subcutaneous heparin GI Prophylaxis: Pepcid PT/OT: Pending Prognosis is guarded
[2024-04-14] MEDS: DOXYCYCLINE 100 MG CAP PO SCH (00:50)
[2024-04-14] MEDS: LEVOTHYROXINE 25 MCG TAB PO SCH (06:03)
--- NOTE | 2024-04-14 08:09 | P.PN ---
Subjective Patient is a pleasant 78 years old female with past medical history of glioblastoma multiform a (s/p surgical resection and radiotherapy Also she has history of stroke from chronic left hemiparesis. 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 Patient currently On seizure medication. She is on Vimpat 150 mg twice daily and Keppra 1500 mg twice daily also she is on dexamethasone 2-3 times per day. Also she was on Valium as needed for seizure. Patient family at bedside states that her last seizure was over the last January but 1 week ago she had another seizure with abnormal movements of the right upper extremity and they gave her vomiting which helped control and her jerking movements. Patient currently is very lethargic, awake and alert and following commands, she is mildly confused. She is oriented about place time and person. She looks tired but she denies headache or dizziness. She has left chronic weakness of the legs and upper extremities. She denies GI or urinary symptoms. No chest pain or dyspnea. She is afebrile She has unremarkable INR, BMP liver enzymes Urinalysis is negative She has mild leukocytosis of 12,000 while she is on steroids dexamethasone Troponin is mildly elevated 0.05 Negative salicylate acetaminophen and serum alcohol level EKG showing sinus rhythm at [address]-T changes Chest x-ray is negative but because of poor quality suspicious for atelectasis versus edema. CT of the brain showing no acute process but previously seen right thalamus basal ganglia mass with postsurgical change of the right parietal and posterior frontal regions. 04/14/2024 Patient today is more awake and alert, looks like mentation at baseline. She is up in bed eating her breakfast, she has good appetite. She denies headache or dizziness. She moves her arms freely. No abnormal movements She still has chronic weakness of both lower extremities and she has bilateral leg swelling most likely secondary to disuse edema besides other problems. patient has also mildly elevated troponin, no chest pain or dyspnea. Troponin stable most likely secondary to kidney disease. Will check echocardiogram. Patient may benefit from cardiology evaluation Also we will check ultrasound of the her right leg as it is more swollen and warm and mildly red. Her superficial ulceration looks chronic and drying up with some serous discharge. No significant surrounding cellulitis on the left leg. Patient states at baseline she uses a chair and she might walk a little bit in her house only with help. Review of systems CONSTITUTIONAL: No fever, no malaise, no fatigue. HEENT: No recent visual problems or hearing problems. Denied any sore throat. CARDIOVASCULAR: No orthopnea, PND, no palpitations, no syncope. PULMONARY: No shortness of breath, no cough, no hemoptysis. GASTROINTESTINAL: No diarrhea, no nausea, no vomiting, no abdominal pain. Normoactive bowel sounds. any joint pain, swelling, or any muscle pain. Active Medications Generic Name Dose Route Start Last Admin Trade Name Freq PRN Reason Stop Dose Admin Amlodipine Besylate 5 mg 04/14/24 09:00 Amlodipine 5 Mg Tab PO DAILY [facility] Atenolol 25 mg 04/14/24 09:00 Atenolol 25 Mg Tab PO DAILY [facility] Atorvastatin Calcium 40 mg 04/13/24 21:00 04/13/24 20:59 Atorvastatin 40 Mg Tab PO 40 mg HS [facility] Administration Calcium Carbonate 1 each 04/14/24 12:00 Calcium Carb-Vit D 500 Mg-5 Mcg Tab PO DAILY@1200 [facility]IN Dexamethasone 2 mg 04/13/24 21:00 04/13/24 20:59 Dexamethasone 2 Mg Tab PO 2 mg BID [facility] Administration Diazepam 5 mg 04/13/24 15:45 Diazepam 5 Mg Tab PO Q8HR PRN Seizures Doxycycline Monohydrate 100 mg 04/14/24 00:15 04/14/24 00:50 Doxycycline 100 Mg Cap PO 04/19/24 00:16 100 mg BID [facility] Administration Protocol Famotidine 20 mg 04/14/24 09:00 Famotidine 20 Mg/2 Ml Vial IV DAILY [facility] Ferrous Sulfate 325 mg 04/20/24 12:00 Ferrous Sulfate 325 Mg Tab PO TU@1200 [facility] Furosemide 40 mg 04/14/24 09:00 Furosemide 10 Mg/Ml 4 Ml Vial IV 04/17/24 09:01 Q12HR [facility] Heparin Sodium (Porcine) 5,000 unit 04/14/24 09:00 Heparin Sodium,Porcine 5,000 Unit/Ml 1 Ml Vial SQ Q12HR [facility] Lacosamide 150 mg 04/13/24 21:00 04/13/24 20:58 Lacosamide 150 Mg Tablet PO 150 mg BID [facility] Administration Levetiracetam 1,500 mg 04/13/24 21:00 04/13/24 20:58 Levetiracetam 750 Mg Tab PO 1,500 mg BID [facility] Administration Levothyroxine Sodium 25 mcg 04/14/24 06:30 04/14/24 06:03 Levothyroxine 25 Mcg Tab PO 25 mcg 0630 [facility] Administration Lidocaine HCl 5 ml 04/13/24 15:45 Lidocaine Viscous 2% 15 Ml Cup PO QID PRN Pain Losartan Potassium 100 mg 04/14/24 09:00 Losartan 50 Mg Tab PO DAILY [facility] Naloxone HCl 0.2 mg 04/13/24 15:44 Naloxone 0.4 Mg/Ml 1 Ml Vial IV Q2M PRN Opioid Reversal Ondansetron HCl 4 mg 04/13/24 15:45 Ondansetron 4 Mg Tab PO Q4H PRN Nausea And Vomiting Pantoprazole Sodium 40 mg 04/14/24 09:00 Pantoprazole 40 Mg Tablet PO DAILY [facility] Sertraline HCl 100 mg 04/14/24 09:00 Sertraline 100 Mg Tab PO DAILY [facility] Objective - Vital Signs Vital signs: Vital Signs Temp 97.4 F L 04/14/24 04:00 Pulse 85 04/14/24 07:46 Resp 16 04/14/24 07:46 BP 170/94 04/14/24 07:46 Pulse Ox 97 04/14/24 07:46 FiO2 Intake & Output 04/13/24 04/14/24 04/14/24 18:59 06:59 18:59 Weight 99.337 kg 99.337 kg Other: Voiding Method External Catheter # Voids 1 - Exam GENERAL: The patient is alert and oriented x3, not in any acute distress. Well developed, well nourished. HEENT: Pupils are round and equally reacting to light. EOMI. No scleral icterus. No conjunctival pallor. Normocephalic, atraumatic. No pharyngeal erythema. No thyromegaly. CARDIOVASCULAR: S1 and S2 present. No murmurs, rubs, or gallops. PULMONARY: Chest is clear to auscultation, no wheezing , no crackles. ABDOMEN: Soft, nontender, nondistended, normoactive bowel sounds. No palpable organomegaly. MUSCULOSKELETAL: No joint swelling or deformity. -EXTREMITIES: No cyanosis, clubbing, , bilateral pitting leg edema. With few dry and superficial ulceration, with no surrounding cellulitis. Right leg is m ore warm and slightly more pink in the middle -NEUROLOGICAL: Gross neurological examination did not reveal any focal deficits. Weakness in both legs, chronic SKIN: No rashes. no petechiae. - Labs CBC & Chem 7: 04/13/24 11:17 04/13/24 14:34 Labs: Abnormal Lab Results - Last 24 Hours (Table) 04/13/24 04/13/24 04/13/24 Range/Units 11:17 11:17 14:34 WBC 12.2 H (3.8-10.6) k/uL MCV 100.7 H (80.0-100.0) fL RDW 15.8 H (11.5-15.5) % Neutrophils # 10.3 H (1.3-7.7) k/uL APTT 21.3 L (22.0-30.0) sec Sodium (137-145) mmol/L BUN (7-17) mg/dL Glucose (74-99) mg/dL ALT (4-34) U/L Troponin I 0.057 H* (0.000-0.034) ng/mL Total Protein (6.3-8.2) g/dL Albumin (3.5-5.0) g/dL Urine Protein (Negative) U Benzodiazepines Scrn (NotDetected) 04/13/24 04/13/24 04/13/24 Range/Units 14:34 16:48 17:54 WBC (3.8-10.6) k/uL MCV (80.0-100.0) fL RDW (11.5-15.5) % Neutrophils # (1.3-7.7) k/uL APTT (22.0-30.0) sec Sodium 134 L (137-145) mmol/L BUN 24 H (7-17) mg/dL Glucose 102 H (74-99) mg/dL ALT 46 H (4-34) U/L Troponin I 0.046 H* (0.000-0.034) ng/mL Total Protein 6.1 L (6.3-8.2) g/dL Albumin 3.4 L (3.5-5.0) g/dL Urine Protein Trace H (Negative) U Benzodiazepines Scrn Detected H (NotDetected) 04/13/24 Range/Units 20:20 WBC (3.8-10.6) k/uL MCV (80.0-100.0) fL RDW (11.5-15.5) % Neutrophils # (1.3-7.7) k/uL APTT (22.0-30.0) sec Sodium (137-145) mmol/L BUN (7-17) mg/dL Glucose (74-99) mg/dL ALT (4-34) U/L Troponin I 0.046 H* (0.000-0.034) ng/mL Total Protein (6.3-8.2) g/dL Albumin (3.5-5.0) g/dL Urine Protein (Negative) U Benzodiazepines Scrn (NotDetected) Assessment and Plan Assessment: -Altered mental status, could be metabolic/toxic encephalopathy secondary to medication effect, with history of brain tumor s/p radiochemotherapy. CT showed right thalamus and basal ganglia mass. This could be due secondary to recent seizure and Valium extra dose she received, currently is back to baseline Focal seizures on multiple AED, with recent seizure like activity of the right upper extremity 1 week prior to hospitalization Possible right lower extremity cellulitis. Rule out deep venous thrombosis History of stroke and left hemiparesis Bilateral leg edema with superficial ulceration suspicious for cellulitis CKD, stage III Hypertension Mild leukocytosis secondary to steroid effect Elevated troponin, rule out cardiac causes. Although felt less likely Obesity with BMI of 37.6 Plan: Patient on multiple seizure medication, Continue with current Keppra Vimpat and [place] as needed Neurology consult Continue with dexamethasone Check echocardiogram Cardiology consult Start IV Lasix, short course Start doxycycline Add Norvasc for better blood pressure control Ultrasound of the right leg is ordered Labs and medication were reviewed.. Continue same treatment. Continue with symptomatic treatment. Resume home medication. Monitor labs and vitals. DVT and GI prophylaxis. Further recommendations as per clinical course of the patient DVT prophylaxis: Subcutaneous heparin GI Prophylaxis: Pepcid PT/OT: Pending Prognosis is guarded
[2024-04-14] MEDS: PANTOPRAZOLE 40 MG TABLET PO SCH (08:35)
[2024-04-14] MEDS: amLODIPine 5 MG TAB PO SCH (08:36)
[2024-04-14] MEDS: LOSARTAN 50 MG TAB PO SCH (08:36)
[2024-04-14] MEDS: SERTRALINE 100 MG TAB PO SCH ×2 (08:36→21:46)
[2024-04-14] MEDS: atenoloL 25 MG TAB PO SCH (08:37)
[2024-04-14] MEDS: HEPARIN SODIUM,PORCINE 5,000 UNIT/ML 1 ML VIAL SQ SCH (08:37)
[2024-04-14] MEDS: FAMOTIDINE 20 MG/2 ML VIAL IV SCH (08:37)
[2024-04-14] MEDS: FUROSEMIDE 10 MG/ML 4 ML VIAL IV SCH (08:37)
[2024-04-14] MEDS ORDERED: FUROSEMIDE 20 MG TAB PO SCH (09:00)
--- NOTE | 2024-04-14 09:04 | US ---
EXAMINATION TYPE: US venous doppler duplex LE RT DATE OF EXAM: 04/14/2024 8:55 AM COMPARISON: NONE CLINICAL INDICATION: Female, 78 years old with history of swelling; chronic swelling of right leg wit h no h/o dvt SIDE PERFORMED: Right TECHNIQUE: The lower extremity deep venous system is examined utilizing real time linear array sonog yumiko with graded compression, doppler sonography and color-flow sonography. VESSELS IMAGED: Common Femoral Vein Deep Femoral Vein Greater Saphenous Vein * Femoral Vein Popliteal Vein Small Saphenous Vein * Proximal Calf Veins (* superficial vessels) Patient can't move leg to get compression images behind knee, w/o color I could not appreciate vessel s, good blood flow and doppler. Right Leg: Negative for DVT IMPRESSION: Grayscale, color doppler, spectral doppler imaging performed of the deep veins of the lo wer extremities. There is normal flow, compressibility, vascular waveforms.
--- NOTE | 2024-04-14 10:25 | P.CRDCN ---
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 She has a past medical history of glioblastoma under the care of of an oncologist in [facility] s/p radiation and chemotherapy and not appropriate for surgery due to location of the tumor. She also has past medical history of hyperlipidemia, hypothyroidism, hypertension, gastroesophageal reflux disease, and seizure disorder. We have been asked to evaluate the patient for elevated troponins. Patient states that she came into the hospital for seizure that had lasted 3 hours. Patient is awake and alert at the time of this evaluation. She denies having any chest pain or chest discomfort or chest pressure. No shortness of breath. She does have some lower extremity edema. Patient is seen today in the emergency center waiting for a bed on the cardiac stepdown unit. EKG sinus rhythm, low voltage flat T waves in the anterior leads. Chest x-ray: Low lung volumes with generalized hazy appearance which could represent atelectasis versus pulmonary edema, correlate with serum BNP. CT of the brain without contrast revealed small right thalamus basal ganglia mass. Posttreatment changes in the right parietal and posterior frontal region. No new acute intracranial process. Right lower extremity venous duplex negative for DVT. WBC 12.2, hemoglobin 14.8. Sodium 134, potassium 3.9, BUN 24 creatinine 0.98. Troponins 0.057, 0.046 and 0.046. proBNP 460. TSH 2.84. Urine drug screen detected benzodiazepines. Salicylates, acetaminophen, alcohol levels less than 10. Home cardiac medications: Atenolol 25 mg daily, atorvastatin 40 mg at bedtime, Atacand 16 mg daily, Lasix 20 mg daily, also on levothyroxine 25 mcg daily. Echocardiogram performed on 08/16/2022 revealed normal left ventricular dimension and systolic function. Review Of Systems: At the time of my exam: CONSTITUTIONAL: Denies fever or chills. HEENT: Denies blurred vision, vision changes, or eye pain. Denies hemoptysis CARDIOVASCULAR: Denies chest pain. Denies orthopnea. Denies PND. Denies palpitations RESPIRATORY: Denies shortness of breath. GASTROINTESTINAL: Denies abdominal pain. Denies nausea or vomiting. HEMATOLOGIC: Denies bleeding disorders. GENITOURINARY: Denies any blood in urine. SKIN: Denies pruitis. Denies rash. Physical examination: Gen: This is a 78-year-old female in no acute distress. VS: reviewed, blood pressure 170/94-prior to morning medications, heart rate 85, pulse ox 97% on room air. HEENT: Head is atraumatic, normocephalic. Pupils equal, round. Sclerae is anicteric. NECK: Supple. No JVD. LUNGS: Clear to auscultation. No wheezes or rhonchi. No intercostal retractions. HEART: Regular rate and rhythm. No murmur. ABDOMEN: Soft No tenderness. EXTREMITIES: Mild pedal edema. No calf tenderness. NEUROLOGICAL: Patient is awake, alert and oriented x3. Assessment: Seizure activity Elevated troponin of unclear significance, rule out non-ST AR Brain tumor Hyperlipidemia Hypothyroidism Hypertension Gastroesophageal reflux disease Plan: Resume patient's home cardiac medications Monitor blood pressure as it is expected to improve after medications Obtain 2-D echocardiogram and Doppler study to assess cardiac structure and function Further recommendations to follow based upon clinical course Thank you kindly for this consultation. Nurse practitioner note has been reviewed, I agree with documented findings and plan of care. Patient was seen and examined. 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 Brain Cancer glioblastoma, last seizure 1 week ago History of Any Multi-Drug Resistant Organisms: None Reported Past Surgical History: Orthopedic Surgery Additional Past Surgical History / Comment(s): tendon release rt wrist,juan cataract,finger surg, brain biopsy 2022 Past Anesthesia/Blood Transfusion Reactions: No Reported Reaction, Motion Sickness Past Psychological History: No Psychological Hx Reported Smoking Status: Never smoker - Past Family History Mother Family Medical History: No Reported History Father Family Medical History: No Reported History Medications and Allergies Home Medications Medication Instructions Recorded Confirmed Type Atorvastatin [Lipitor] 40 mg PO HS 04/09/17 04/13/24 History Fish Oil/Dha/Epa [Fish Oil 1,200 1 cap PO DAILY@1200 04/09/17 04/13/24 History mg Fish Oil] Levothyroxine Sodium [Synthroid] 25 mcg PO DAILY 04/09/17 04/13/24 History atenoloL [Tenormin] 25 mg PO DAILY 04/09/17 04/13/24 History calcitrioL [Rocaltrol] 0.25 mcg PO Q7D 04/09/17 04/13/24 History Ferrous Sulfate [Iron (65 MG 325 mg PO TU@1200 08/15/22 04/13/24 History Elemental)] Sertraline [Zoloft] 100 mg PO DAILY 04/14/23 04/13/24 History levETIRAcetam [Keppra Xr] 1,500 mg PO BID 04/14/23 04/13/24 History Lacosamide [Vimpat] 150 mg PO BID 12/02/23 04/13/24 History Calcium Carbonate/Vitamin D3 1 tab PO DAILY@1200 04/13/24 04/13/24 History [Calcium 600 mg-Vit D3 5 mcg (200 unit)] Candesartan [Atacand] 16 mg PO DAILY 04/13/24 04/13/24 History Furosemide [Lasix] 20 mg PO DAILY 04/13/24 04/13/24 History Omeprazole [PriLOSEC] 20 mg PO DAILY 04/13/24 04/13/24 History Ondansetron [Zofran] 4 mg PO Q4H PRN 04/13/24 04/13/24 History dexAMETHasone 2 mg PO BID 04/13/24 04/13/24 History diazePAM [Valium] 5 mg PO Q8HR PRN 04/13/24 04/13/24 History lidocaine HCL [lidocaine HCL 5 ml PO QID PRN 04/13/24 04/13/24 History Viscous] Allergies Allergy/AdvReac Type Severity Reaction Status Date / Time cephalexin [From Keflex] Allergy Unknown Verified 04/13/24 12:58 lamotrigine [From Lamictal] Allergy Rash/Hives Verified 04/13/24 12:58 levofloxacin [From Levaquin] Allergy Rash/Hives Verified 04/13/24 12:58 Sulfa (Sulfonamide Allergy Rash/Hives Verified 04/13/24 12:58 Antibiotics) codeine AdvReac Nausea & Verified 04/13/24 12:58 Vomiting erythromycin base AdvReac Nausea & Verified 04/13/24 12:58 Vomiting Physical Exam Vitals: Vital Signs Temp Pulse Pulse Resp BP BP BP 04/14/24 07:46 85 16 170/94 04/14/24 04:00 97.4 F L 75 18 167/94 04/14/24 02:00 64 18 04/13/24 23:15 97.0 F L 64 18 151/86 04/13/24 23:12 67 20 122/50 04/13/24 22:14 75 20 143/80 04/13/24 20:01 75 18 143/80 04/13/24 17:20 70 20 151/84 04/13/24 16:28 98.4 F 63 20 150/82 04/13/24 13:46 64 18 141/75 04/13/24 11:54 65 16 139/70 04/13/24 09:52 65 14 132/63 Pulse Ox 04/14/24 07:46 97 04/14/24 04:00 94 L 04/14/24 02:00 04/13/24 23:15 94 L 04/13/24 23:12 94 L 04/13/24 22:14 98 04/13/24 20:01 95 04/13/24 17:20 95 04/13/24 16:28 96 04/13/24 13:46 95 04/13/24 11:54 96 04/13/24 09:52 96 Intake and Output 04/13/24 04/14/24 04/14/24 22:59 06:59 14:59 Other: Voiding Method External Catheter External Catheter # Voids 1 Weight 99.337 kg Results 04/13/24 11:17 04/13/24 14:34 Cardiac Enzymes 04/13/24 04/13/24 04/13/24 Range/Units 11:17 14:34 17:54 AST 32 (14-36) U/L Troponin I 0.057 H* 0.046 H* (0.000-0.034) ng/mL 04/13/24 Range/Units 20:20 AST (14-36) U/L Troponin I 0.046 H* (0.000-0.034) ng/mL Coagulation 04/13/24 Range/Units 14:34 PT 10.0 (10.0-12.5) sec APTT 21.3 L (22.0-30.0) sec CBC 04/13/24 Range/Units 11:17 WBC 12.2 H (3.8-10.6) k/uL RBC 4.52 (3.80-5.40) m/uL Hgb 14.8 (11.4-16.0) gm/dL Hct 45.5 (34.0-46.0) % Plt Count (150-450) k/uL Comprehensive Metabolic Panel 04/13/24 Range/Units 14:34 Sodium 134 L (137-145) mmol/L Potassium 3.9 (3.5-5.1) mmol/L Chloride 103 (98-107) mmol/L Carbon Dioxide 25 (22-30) mmol/L BUN 24 H (7-17) mg/dL Creatinine 0.98 (0.52-1.04) mg/dL Glucose 102 H (74-99) mg/dL Calcium 8.8 (8.4-10.2) mg/dL AST 32 (14-36) U/L ALT 46 H (4-34) U/L Alkaline Phosphatase 101 (38-126) U/L Total Protein 6.1 L (6.3-8.2) g/dL Albumin 3.4 L (3.5-5.0) g/dL Current Medications Generic Name Dose Route Start Last Admin Trade Name Freq PRN Reason Stop Dose Admin Amlodipine Besylate 5 mg 04/14/24 09:00 04/14/24 08:36 Amlodipine 5 Mg Tab PO 5 mg DAILY DELVIN Administration Atenolol 25 mg 04/14/24 09:00 04/14/24 08:37 Atenolol 25 Mg Tab PO 25 mg DAILY DELVIN Administration Atorvastatin Calcium 40 mg 04/13/24 21:00 04/13/24 20:59 Atorvastatin 40 Mg Tab PO 40 mg HS DELVIN Administration Calcium Carbonate 1 each 04/14/24 12:00 Calcium Carb-Vit D 500 Mg-5 Mcg Tab PO DAILY@1200 DELVIN Dexamethasone 2 mg 04/13/24 21:00 04/14/24 08:36 Dexamethasone 2 Mg Tab PO 2 mg BID DELVIN Administration Diazepam 5 mg 04/13/24 15:45 Diazepam 5 Mg Tab PO Q8HR PRN Seizures Doxycycline Monohydrate 100 mg 04/14/24 00:15 04/14/24 08:36 Doxycycline 100 Mg Cap PO 04/19/24 00:16 100 mg BID DELVIN Administration Protocol Famotidine 20 mg 04/14/24 09:00 04/14/24 08:37 Famotidine 20 Mg/2 Ml Vial IV 20 mg DAILY DELVIN Administration Ferrous Sulfate 325 mg 04/20/24 12:00 Ferrous Sulfate 325 Mg Tab PO TU@1200 DELVIN Furosemide 40 mg 04/14/24 09:00 04/14/24 08:37 Furosemide 10 Mg/Ml 4 Ml Vial IV 04/17/24 09:01 40 mg Q12HR DELVIN Administration Heparin Sodium (Porcine) 5,000 unit 04/14/24 09:00 04/14/24 08:37 Heparin Sodium,Porcine 5,000 Unit/Ml 1 Ml Vial SQ 5,000 unit Q12HR DELVIN Administration Lacosamide 150 mg 04/13/24 21:00 04/14/24 08:37 Lacosamide 150 Mg Tablet PO 150 mg BID DELVIN Administration Levetiracetam 1,500 mg 04/13/24 21:00 04/14/24 08:37 Levetiracetam 750 Mg Tab PO 1,500 mg BID DELVIN Administration Levothyroxine Sodium 25 mcg 04/14/24 06:30 04/14/24 06:03 Levothyroxine 25 Mcg Tab PO 25 mcg 0630 DELVIN Administration Lidocaine HCl 5 ml 04/13/24 15:45 Lidocaine Viscous 2% 15 Ml Cup PO QID PRN Pain Losartan Potassium 100 mg 04/14/24 09:00 04/14/24 08:36 Losartan 50 Mg Tab PO 100 mg DAILY DELVIN Administration Naloxone HCl 0.2 mg 04/13/24 15:44 Naloxone 0.4 Mg/Ml 1 Ml Vial IV Q2M PRN Opioid Reversal Ondansetron HCl 4 mg 04/13/24 15:45 Ondansetron 4 Mg Tab PO Q4H PRN Nausea And Vomiting Pantoprazole Sodium 40 mg 04/14/24 09:00 04/14/24 08:35 Pantoprazole 40 Mg Tablet PO 40 mg DAILY DELVIN Administration Intake and Output 04/13/24 04/14/24 04/14/24 22:59 06:59 14:59 Other: Voiding Method External Catheter External Catheter # Voids 1 Weight 99.337 kg 04/13/24 11:17 04/13/24 14:34
[2024-04-14] MEDS ORDERED: NON FORMULARY DRUG (Fish Oil/Dha/Epa [Fish Oil 1,200 Mg Fish Oil] 1 EACH Capsule) PO SCH (12:00)
[2024-04-14] MEDS: LACOSAMIDE 50 MG TABLET PO STA (12:49)
[2024-04-14] MEDS: CALCIUM CARB-VIT D 500 MG-5 MCG TAB PO SCH (12:50)
[2024-04-14] MEDS: LORazepam 2 MG/ML INJ IV STA (12:50)
[2024-04-14] MEDS: levETIRAcetam IV 500 MG/5 ML VIAL IVP STA (13:16)
[2024-04-14 13:56] LABS: African American GFR (CKD) 77 (>60 ml/min/1.73 sqM); Anion Gap 6 mmol/L; Blood Urea Nitrogen 19 mg/dL (7-17); Calcium 8.6 mg/dL (8.4-10.2); Carbon Dioxide 24 mmol/L (22-30); Chloride 102 mmol/L (98-107); Glucose 134 mg/dL (74-99); Non-African American GFR(CKD) 67 (>60 ml/min/1.73 sqM); Sodium 132 mmol/L (137-145)
[2024-04-14 14:04] LABS: NT-Pro-B-Type Natriuretic Pept 480 pg/mL
[2024-04-14 14:11] LABS: Anisocytosis Slight; Basophils # (A) 0.1 k/uL (0-0.2); Basophils % (A) 1 %; Eosinophils % (A) 0 %; HGB 14.8 gm/dL (11.4-16.0); Lymphocytes # (A) 0.8 k/uL (1.0-4.8); Lymphocytes % (A) 6 %; MCH 35.6 pg (25.0-35.0); MCHC 34.4 g/dL (31.0-37.0); MCV 103.3 fL (80.0-100.0); Macrocytosis Moderate; Mean Platelet Volume 8.1; Monocytes # (A) 0.8 k/uL (0-1.0); Monocytes % (A) 6 %; Neutrophils # (A) 12.4 k/uL (1.3-7.7); Neutrophils % (A) 87 %; Platelet Count 155 k/uL (150-450); RBC 4.16 m/uL (3.80-5.40); RDW 16.2 % (11.5-15.5); WBC 14.3 k/uL (3.8-10.6)
[2024-04-14 14:23] LABS: Potassium 4.2 mmol/L (3.5-5.1)
[2024-04-14] MEDS ORDERED: LORazepam 2 MG/ML INJ IV PRN (16:57)
--- NOTE | 2024-04-14 16:57 | P.CNNES ---
History of Present Illness Consult date: 04/14/24 Requesting physician: Meggan Small Reason for Consult: encephalopathy, hx of Glioblastoma History of Present Illness: This is a 78-year-old woman with history of glioblastoma multiform with residual significant weakness over the left side, seizure who presented emergency department because of confusion. The patient's and daughter is at bedside who provides with some of the history. It seems the patient and has had left arm twitching according to the daughter for 3 hours and she received a rescue medication (Valium 5mg). Patient is hallucinating was confused. She was having having cramping of the legs as well. According to family members she had her seizure in August 2022 that was is her first seizure. Plan was had official diagnosis of glioblastoma multiforme after biopsy in January 2023. She was notified that she has stage IV cancer. She received chemo and radiation therapy. She follows up with oncologist Dr. Arango over at [facility]. She is following up with a neurologist over at [facility] but is in the process of seeing a different neurologist and per Mimi since is unable to see the neurologist in person and that transportation would cost too much. For her seizure patient is on Keppra 1500 mg twice daily, Vimpat 150 mg twice daily. About 2 months ago her Vimpat was increased from 100 250 mg twice daily. She had a recent MRI in the last few weeks per the daughter. He is on dexamethasone 2 mg twice daily. The daughter they could not afford the nasal rescue medication that is why the patient is getting Valium. Some of the workup during this hospital visit consisted of: Bone and is 0.057 and is trending down. AST 32 and ALT of 46 Sodium is 134 Creatinine is normal Serum glucose is [address] of the head is reported as similar right thalamus/basal ganglia mass. Posttreatment changes right parietal/posterior frontal region. No acute intracranial process. Consider MRI if there is concern. I personally reviewed the CT and I agree there is no acute or subacute process. Review of Systems Positive and negative as per HPI. 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 Brain Cancer glioblastoma, last seizure 1 week ago History of Any Multi-Drug Resistant Organisms: None Reported Past Surgical History: Orthopedic Surgery Additional Past Surgical History / Comment(s): tendon release rt wrist,juan cataract,finger surg, brain biopsy 2022 Past Anesthesia/Blood Transfusion Reactions: No Reported Reaction, Motion Sickness Past Psychological History: No Psychological Hx Reported Smoking Status: Never smoker - Past Family History Mother Family Medical History: No Reported History Father Family Medical History: No Reported History Medications and Allergies Home Medications Medication Instructions Recorded Confirmed Type Atorvastatin [Lipitor] 40 mg PO HS 04/09/17 04/13/24 History Fish Oil/Dha/Epa [Fish Oil 1,200 1 cap PO DAILY@1200 04/09/17 04/13/24 History mg Fish Oil] Levothyroxine Sodium [Synthroid] 25 mcg PO DAILY 04/09/17 04/13/24 History atenoloL [Tenormin] 25 mg PO DAILY 04/09/17 04/13/24 History calcitrioL [Rocaltrol] 0.25 mcg PO Q7D 04/09/17 04/13/24 History Ferrous Sulfate [Iron (65 MG 325 mg PO TU@1200 08/15/22 04/13/24 History Elemental)] Sertraline [Zoloft] 100 mg PO DAILY 04/14/23 04/13/24 History levETIRAcetam [Keppra Xr] 1,500 mg PO BID 04/14/23 04/13/24 History Lacosamide [Vimpat] 150 mg PO BID 12/02/23 04/13/24 History Calcium Carbonate/Vitamin D3 1 tab PO DAILY@1200 04/13/24 04/13/24 History [Calcium 600 mg-Vit D3 5 mcg (200 unit)] Candesartan [Atacand] 16 mg PO DAILY 04/13/24 04/13/24 History Furosemide [Lasix] 20 mg PO DAILY 04/13/24 04/13/24 History Omeprazole [PriLOSEC] 20 mg PO DAILY 04/13/24 04/13/24 History Ondansetron [Zofran] 4 mg PO Q4H PRN 04/13/24 04/13/24 History dexAMETHasone 2 mg PO BID 04/13/24 04/13/24 History diazePAM [Valium] 5 mg PO Q8HR PRN 04/13/24 04/13/24 History lidocaine HCL [lidocaine HCL 5 ml PO QID PRN 04/13/24 04/13/24 History Viscous] Allergies Allergy/AdvReac Type Severity Reaction Status Date / Time cephalexin [From Keflex] Allergy Unknown Verified 04/13/24 12:58 lamotrigine [From Lamictal] Allergy Rash/Hives Verified 04/13/24 12:58 levofloxacin [From Levaquin] Allergy Rash/Hives Verified 04/13/24 12:58 Sulfa (Sulfonamide Allergy Rash/Hives Verified 04/13/24 12:58 Antibiotics) codeine AdvReac Nausea & Verified 04/13/24 12:58 Vomiting erythromycin base AdvReac Nausea & Verified 04/13/24 12:58 Vomiting Physical Examination - Vital Signs Vital Signs: Vital Signs Temp Pulse Pulse Resp BP BP Pulse Ox 04/14/24 15:48 72 18 167/96 97 04/14/24 12:00 78 16 174/82 95 04/14/24 07:46 85 16 170/94 97 04/14/24 04:00 97.4 F L 75 18 167/94 94 L 04/14/24 02:00 64 18 04/13/24 23:15 97.0 F L 64 18 151/86 94 L 04/13/24 23:12 67 20 122/50 94 L 04/13/24 22:14 75 20 143/80 98 04/13/24 20:01 75 18 143/80 95 04/13/24 17:20 70 20 151/84 95 Intake and Output 04/14/24 04/14/24 04/14/24 06:59 14:59 22:59 Intake Total 200 Output Total 1050 575 Balance -850 -575 Intake: Oral 200 Output: Urine 1050 575 Other: Voiding Method External Catheter External Catheter # Voids 1 Weight 99.337 kg General: Lying in bed and is not in acute distress. HENT: Supple neck. Neuro: Patient is awake, alert, oriented to self place and time. Is following simple commands. No aphasia or neglect. Pupils are round, equal and reactive to light. Pupils are 3mm bilaterally. Visual romero are full to confrontation. EOM intact and no nystagmus. No facial weakness. No dysarthria. Tongue is midline and moves side to side without difficulty. Motor: Left upper is 0/5. Left lower is proximal is 1 while distal is 1/5. Right side is 5/5. Normal bulk. Sensation: Normal to touch throughout. Reflex: 1+ throughout in lowers while uppers are 2+. Plantars are mute bilaterally. Results - Laboratory Findings CBC and BMP: 04/14/24 13:19 04/14/24 13:19 Abnormal Lab Findings: Abnormal Labs 04/13/24 04/13/24 04/13/24 11:17 11:17 14:34 WBC 12.2 H MCV 100.7 H MCH RDW 15.8 H Neutrophils # 10.3 H Lymphocytes # APTT 21.3 L Sodium BUN Glucose ALT Troponin I 0.057 H* Total Protein Albumin Urine Protein U Benzodiazepines Scrn 04/13/24 04/13/24 04/13/24 14:34 16:48 17:54 WBC MCV MCH RDW Neutrophils # Lymphocytes # APTT Sodium 134 L BUN 24 H Glucose 102 H ALT 46 H Troponin I 0.046 H* Total Protein 6.1 L Albumin 3.4 L Urine Protein Trace H U Benzodiazepines Scrn Detected H 04/13/24 04/14/24 04/14/24 20:20 13:19 13:19 WBC 14.3 H MCV 103.3 H MCH 35.6 H RDW 16.2 H Neutrophils # 12.4 H Lymphocytes # 0.8 L APTT Sodium 132 L BUN 19 H Glucose 134 H ALT Troponin I 0.046 H* Total Protein Albumin Urine Protein U Benzodiazepines Scrn 04/14/24 13:19 WBC MCV MCH RDW Neutrophils # Lymphocytes # APTT Sodium BUN Glucose ALT Troponin I 0.039 H* Total Protein Albumin Urine Protein U Benzodiazepines Scrn Assessment and Plan Assessment: This is a 78-year-old woman with a history of glioblastoma multiforme and was confirmed with biopsy in January 2023, seizure in August 2022 who presents because of confusion and hallucination. According to the family members this past Friday she had 3-hour episode of left arm twitching and resolved after rescue many medication of Valium. She had a recent MRI of the brain a few weeks ago. Episode of confusion and hallucination likely due to breakthrough seizure Minimal elevated troponin I think it is reactive due seizure History of seizure due to glioblastoma multiforme Stage IV glioblastoma multiforme Plan: Patient is resumed on her home medication of Keppra 1500 mg twice daily, Vimpat 150 twice daily. I went up on the Vimpat to 200 milligram twice daily Ordered routine EEG Seizure precautions seizure pads He was resumed on her home dose of dexamethasone 2 mg twice daily. For the elevated troponin cardiology is consulted by the primary team Will defer the rest of the medical management to primary team and other specialists Upon discharge the patient continue to follow-up with her oncologist over [facility], Dr. Arango. She is in the process of seeing a different neurologist since she was seeing someone over [place] but is having difficulty with transportation as well as affordability. She was notified to see if she can follow-up with neurologist over [facility] if they can accommodate telemetry visit facility that she is following up with oncologist over [facility]. Thank you for the consultation. The plan is discussed with patient and her family members ( and daughter). Addendum: There is one seizure noted during the begining of the study. As result, I gave patient 2mg Ativan, Loaded her up with Keppra 1500mg IV once. The patient's family was updated. Time with Patient: Greater than 30
--- NOTE | 2024-04-14 17:34 | CA ---
Transthoracic Echo Report Name: Yari Dsouza Age: 78 Gender: F : 1945 Exam Date: 04/14/2024 14:25 Exam Location: [facility] Ht (in): 64 Wt (lb): 220 Ordering Physician: Babar Grimm MD Attending/Referring Phys: [id number], Sirisha Cake Knocker Leigh Patricia, NICOLAS Procedure CPT: Indications: Rule out heart disease Cardiac Hx: Technical Quality: Very technically difficult study Contrast 1: Definity Total Dose (mL): 2 Contrast 2: Total Dose (mL): MEASUREMENTS (Male / Female) Normal Values 2D ECHO LV Diastolic Volume MOD BP 62.9 cm??? 67 - 155 / 56 - 104 cm??? LV Systolic Volume MOD BP 31.0 cm??? 22 - 58 / 19 - 49 cm??? LV Ejection Fraction MOD BP 50.7 % >= 55 % LV Cardiac Index MOD BP 1144.8 cm???/min???m??? LV Diastolic Volume MOD 4C 58.7 cm??? LV Systolic Volume MOD 4C 33.8 cm??? LV Ejection Fraction MOD 4C 42.4 % LV Cardiac Index MOD 4C 895.5 cm???/min???m??? LV Diastolic Length 4C 7.3 cm LV Systolic Length 4C 6.2 cm LV Diastolic Volume MOD 2C 65.2 cm??? LV Systolic Volume MOD 2C 27.5 cm??? LV Ejection Fraction MOD 2C 57.8 % LV Cardiac Index MOD 2C 1354.4 cm???/min???m??? LV Diastolic Length 2C 7.6 cm LV Systolic Length 2C 6.0 cm Ascending Aorta Diameter 3.1 cm DOPPLER PV Peak Velocity 70.1 cm/s PV Peak Gradient 2.0 mmHg FINDINGS Left Ventricle Left ventricular ejection fraction is estimated at 50 %. Mildly decreased left ventricular ejection fraction. No obvious regional wall motion abnormalities. Right Ventricle Right ventricle not well visualized. Unable to estimate the right ventricular systolic pressure. Right Atrium Right atrium not well visualized. Left Atrium Left atrium not well visualized. Mitral Valve Structurally normal mitral valve. No mitral stenosis, regurgitation or prolapse. Aortic Valve Trileaflet aortic valve. No aortic valve stenosis or regurgitation. Tricuspid Valve Structurally normal tricuspid valve. No tricuspid stenosis, regurgitation or prolapse. Pulmonic Valve Pulmonic valve not well visualized. Pericardium No pericardial effusion. Aorta Normal size aortic root and proximal ascending aorta. CONCLUSIONS Technically suboptimal study secondary to poor echo windows Mild LV systolic dysfunction with an ejection fraction of 50% Previewed by: Dr. Eagle Bautista MD (Electronically Signed) Final Date: 14 April 2024 17:33
[2024-04-14] MEDS: LACOSAMIDE 50 MG TABLET PO SCH (21:46)
--- NOTE | 2024-04-14 22:24 | EEG ---
ELECTROENCEPHALOGRAM REPORT CLINICAL HISTORY: This is a 78-year-old woman with history of glioblastoma multiforme and had chemotherapy and radiation, seizure, who presents because of confusion. The video EEG is obtained to evaluate for seizure epileptiform activity. RELEVANT MEDICATIONS: 1. Vimpat. 2. Keppra. 3. Valium. EEG TYPE: A routine 21-channel EEG with video using the 10/20 electrode placement system. DESCRIPTION: Wakefulness is obtained. During awake state, the posterior-dominant rhythm consists of [id number] voltage of 8 to 8.5 hertz activity that is well modulated and well sustained. There is no physiological stage 2 sleep architecture. There is no focal slowing. Interictal and ictal, there is polyspike over the left hemisphere, but predominantly seem stemming over the left temporal region. There is also an episode of polyspike over the left hemisphere, and there was evolution into 5 to 6 hertz theta activity into delta activity over the left hemisphere. This episode occurs while the patient had photic stimulation at 6 hertz and the episode started at around 5 minutes and 28 seconds into the recording and it lasted for about a minute and a half to a minute and 40 seconds. Clinically, the patient was lying on her back and she was holding on the rail with the right hand. No jerking of any extremities with the limitation of the video. ACTIVATION PROCEDURE: Photic stimulation, there was no photic driving noted. As stated, there was an abnormality noted above. Hyperventilation is not performed. CLINICAL INTERPRETATION: This is an abnormal routine EEG. There is 1 seizure during the study and it seems it lasted for about a minute and a half to a minute and 40 second over the left hemisphere. The epileptiform discharge over the left temporal region can increase risk for focal seizure as well as status epilepticus. There is no focal slowing noted. Clinical correlation is recommended. MMODL / IJN: [id number] / [facility]
[2024-04-14] MEDS ORDERED: LORazepam 1 MG/0.5 ML VIAL IV PRN (23:34)
--- NOTE | 2024-04-15 07:55 | P.PN ---
Subjective Patient is a pleasant 78 years old female with past medical history of glioblastoma multiform a (s/p surgical resection and radiotherapy Also she has history of stroke from chronic left hemiparesis. 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 Patient currently On seizure medication. She is on Vimpat 150 mg twice daily and Keppra 1500 mg twice daily also she is on dexamethasone 2-3 times per day. Also she was on Valium as needed for seizure. Patient family at bedside states that her last seizure was over the last January but 1 week ago she had another seizure with abnormal movements of the right upper extremity and they gave her vomiting which helped control and her jerking movements. Patient currently is very lethargic, awake and alert and following commands, she is mildly confused. She is oriented about place time and person. She looks tired but she denies headache or dizziness. She has left chronic weakness of the legs and upper extremities. She denies GI or urinary symptoms. No chest pain or dyspnea. She is afebrile She has unremarkable INR, BMP liver enzymes Urinalysis is negative She has mild leukocytosis of 12,000 while she is on steroids dexamethasone Troponin is mildly elevated 0.05 Negative salicylate acetaminophen and serum alcohol level EKG showing sinus rhythm at [address]-T changes Chest x-ray is negative but because of poor quality suspicious for atelectasis versus edema. CT of the brain showing no acute process but previously seen right thalamus basal ganglia mass with postsurgical change of the right parietal and posterior frontal regions. 04/14/2024 Patient today is more awake and alert, looks like mentation at baseline. She is up in bed eating her breakfast, she has good appetite. She denies headache or dizziness. She moves her arms freely. No abnormal movements She still has chronic weakness of both lower extremities and she has bilateral leg swelling most likely secondary to disuse edema besides other problems. patient has also mildly elevated troponin, no chest pain or dyspnea. Troponin stable most likely secondary to kidney disease. Will check echocardiogram. Patient may benefit from cardiology evaluation Also we will check ultrasound of the her right leg as it is more swollen and warm and mildly red. Her superficial ulceration looks chronic and drying up with some serous discharge. No significant surrounding cellulitis on the left leg. Patient states at baseline she uses a chair and she might walk a little bit in her house only with help. 04/15/2024 Patient awake alert, looks little bit more tired Yesterday she had EEG showing epileptiform discharge and seizure-like activity lasted 1 minute and 40 seconds. The epileptic discharges on the left side of the uatsdin. Currently she is kept on Keppra 1500 mg twice daily and Vimpat dose increased 150 up to 200. Also she is on benzodiazepine as needed Neurology team following closely Patient with no chest pain, mildly elevated troponin. Echocardiogram showing preserved ejection fraction or mildly low at 50%. She is not on aspirin currently. She is on losartan 100 mg and Lasix 40 mg IV twice daily. This can be switched to oral dose 40 mg daily tomorrow. Cellulitis of the lower extremity is also improving I will treated with doxycycline for a total of 7 days. Objective - Vital Signs Vital signs: Vital Signs Temp 98.1 F 04/14/24 20:40 Pulse 65 04/15/24 04:45 Resp 18 04/15/24 04:45 BP 130/72 04/15/24 04:45 Pulse Ox 93 L 04/15/24 04:45 FiO2 Intake & Output 04/14/24 04/15/24 04/15/24 18:59 06:59 18:59 Intake Total 200 Output Total 1625 550 Balance -1425 -550 Weight 80.5 kg Intake: Oral 200 Output: Urine 1625 550 Other: Voiding Method External Catheter Diaper External Catheter - Exam GENERAL: The patient is alert and oriented x3, not in any acute distress. Well developed, well nourished. HEENT: Pupils are round and equally reacting to light. EOMI. No scleral icterus. No conjunctival pallor. Normocephalic, atraumatic. No pharyngeal erythema. No thyromegaly. CARDIOVASCULAR: S1 and S2 present. No murmurs, rubs, or gallops. PULMONARY: Chest is clear to auscultation, no wheezing , no crackles. ABDOMEN: Soft, nontender, nondistended, normoactive bowel sounds. No palpable organomegaly. MUSCULOSKELETAL: No joint swelling or deformity. -EXTREMITIES: No cyanosis, clubbing, , bilateral pitting leg edema. With few dr y and superficial ulceration, with no surrounding cellulitis. Right leg is more warm and slightly more pink in the middle -NEUROLOGICAL: Gross neurological examination did not reveal any focal deficits. Weakness in both legs, chronic SKIN: No rashes. no petechiae. - Labs CBC & Chem 7: 04/14/24 13:19 04/14/24 13:19 Labs: Abnormal Lab Results - Last 24 Hours (Table) 04/14/24 04/14/24 04/14/24 Range/Units 13:19 13:19 13:19 WBC 14.3 H (3.8-10.6) k/uL MCV 103.3 H (80.0-100.0) fL MCH 35.6 H (25.0-35.0) pg RDW 16.2 H (11.5-15.5) % Neutrophils # 12.4 H (1.3-7.7) k/uL Lymphocytes # 0.8 L (1.0-4.8) k/uL Sodium 132 L (137-145) mmol/L BUN 19 H (7-17) mg/dL Glucose 134 H (74-99) mg/dL Troponin I 0.039 H* (0.000-0.034) ng/mL Procalcitonin (0.02-0.09) ng/mL 04/14/24 Range/Units 13:19 WBC (3.8-10.6) k/uL MCV (80.0-100.0) fL MCH (25.0-35.0) pg RDW (11.5-15.5) % Neutrophils # (1.3-7.7) k/uL Lymphocytes # (1.0-4.8) k/uL Sodium (137-145) mmol/L BUN (7-17) mg/dL Glucose (74-99) mg/dL Troponin I (0.000-0.034) ng/mL Procalcitonin 0.19 H (0.02-0.09) ng/mL Assessment and Plan Assessment: -Altered mental status, could be metabolic/toxic encephalopathy secondary to medication effect, with history of brain tumor s/p radiochemotherapy. CT showed right thalamus and basal ganglia mass. This could be due secondary to recent seizure and Valium extra dose she received, currently is back to baseline Focal seizures on multiple AED, with recent seizure like activity of the right upper extremity 1 week prior to hospitalization Possible right lower extremity cellulitis. Rule out deep venous thrombosis History of stroke and left hemiparesis Bilateral leg edema with superficial ulceration suspicious for cellulitis CKD, stage III Hypertension Mild leukocytosis secondary to steroid effect Elevated troponin, rule out cardiac causes. Although felt less likely Obesity with BMI of 37.6 Plan: Patient on multiple seizure medication, Continue with current Keppra Vimpat and benzodiazepine as needed Neurology consult Continue with dexamethasone echocardiogram results reviewed Cardiology consult Continue with oral Lasix Continue with doxycycline x 7 days Add Norvasc for better blood pressure control Ultrasound of the right leg is negative for DVT Labs and medication were reviewed.. Continue same treatment. Continue with symptomatic treatment. Resume home medication. Monitor labs and vitals. DVT and GI prophylaxis. Further recommendations as per clinical course of the patient DVT prophylaxis: Subcutaneous heparin GI Prophylaxis: Pepcid PT/OT: Pending Prognosis is guarded
--- NOTE | 2024-04-15 13:02 | P.PN ---
Subjective Progress Note Date: 04/15/24 I am following-up with patient and per family members she continues to be confused and hallucinating. No further jerking of extremities. Objective - Vital Signs Vital signs: Vital Signs Temp 98.2 F 04/15/24 09:42 Pulse 88 04/15/24 12:08 Resp 18 04/15/24 12:08 BP 109/68 04/15/24 12:08 Pulse Ox 92 L 04/15/24 12:08 FiO2 Intake & Output 04/14/24 04/15/24 04/15/24 18:59 06:59 18:59 Intake Total 200 140 Output Total 1625 550 400 Balance -1425 -550 -260 Weight 80.5 kg Intake: IV 20 Invasive Line 1 10 Invasive Line 2 10 Oral 200 120 Output: Urine 1625 550 400 Other: Voiding Method External Catheter Diaper Diaper External Catheter External Catheter - Exam General: Lying in bed and is not in acute distress. HENT: Supple neck. Neuro: Patient is mild drowsy, oriented to self. She correctly stated the current month but stated the year is 2017 and she is at home. She is able to follow some simple commands. No aphasia from limited language. Pupils are round, equal and reactive to light. Pupils are 3mm bilaterally. No facial weakness. Motor: Left upper is 3/5. Left lower is proximal is 1 while distal is 2/5. Right side is 5/5. Normal bulk. Some of the workup during this hospital visit consisted of: Bone and is 0.057 and is trending down. AST 32 and ALT of 46 Sodium is 134 Creatinine is normal Serum glucose is [address] of the head is reported as similar right thalamus/basal ganglia mass. Posttreatment changes right parietal/posterior frontal region. No acute intracranial process. Consider MRI if there is concern. I personally reviewed the CT and I agree there is no acute or subacute process. Routine EEG: Is abnormal. There is one seizure during the routine EEG lasting for 1minute and 30 seconds to 1 minute and 4 seconds over the left hemisphere. There epileptiform discharge over the left temporal can increase risk for seizure as well status epilepticus. There is no focal slowing. - Labs CBC & Chem 7: 04/14/24 13:19 04/14/24 13:19 Labs: Abnormal Lab Results - Last 24 Hours (Table) 04/14/24 04/14/24 04/14/24 Range/Units 13:19 13:19 13:19 WBC 14.3 H (3.8-10.6) k/uL MCV 103.3 H (80.0-100.0) fL MCH 35.6 H (25.0-35.0) pg RDW 16.2 H (11.5-15.5) % Neutrophils # 12.4 H (1.3-7.7) k/uL Lymphocytes # 0.8 L (1.0-4.8) k/uL Sodium 132 L (137-145) mmol/L BUN 19 H (7-17) mg/dL Glucose 134 H (74-99) mg/dL Troponin I 0.039 H* (0.000-0.034) ng/mL Procalcitonin (0.02-0.09) ng/mL 04/14/24 Range/Units 13:19 WBC (3.8-10.6) k/uL MCV (80.0-100.0) fL MCH (25.0-35.0) pg RDW (11.5-15.5) % Neutrophils # (1.3-7.7) k/uL Lymphocytes # (1.0-4.8) k/uL Sodium (137-145) mmol/L BUN (7-17) mg/dL Glucose (74-99) mg/dL Troponin I (0.000-0.034) ng/mL Procalcitonin 0.19 H (0.02-0.09) ng/mL Assessment and Plan Assessment: This is a 78-year-old woman with a history of glioblastoma multiforme and was confirmed with biopsy in January 2023, seizure in August 2022 who presents because of confusion and hallucination. According to the family members this past Friday she had 3-hour episode of left arm twitching and resolved after rescue many medication of Valium. She had a recent MRI of the brain a few weeks ago. Episode of confusion and hallucination due to breakthrough seizure. Had a seizure over the left hemisphere lasting 1 minute and 30-40seconds. Today again has further confusion and hallucination Minimal elevated troponin I think it is reactive due seizure History of seizure due to glioblastoma multiforme Stage IV glioblastoma multiforme Plan: Patient is resumed on her home medication of Keppra 1500 mg twice daily, Vimpat 150 twice daily was increased to 200mg bid. I started the patient on Depakote 500mg bid since has further confusion and concern for seizures. Recommend transferring patient for terminal worker EEG for concern of multiple seizure or even subclinical seizures. Seizure precautions seizure pads He was resumed on her home dose of dexamethasone 2 mg twice daily. For the elevated troponin cardiology is consulted by the primary team Will defer the rest of the medical management to primary team and other specialists Upon discharge the patient continue to follow-up with her oncologist over [facility], Dr. Arango. She is in the process of seeing a different neurologist since she was seeing someone over [place] but is having difficulty with transportation as well as affordability. She was notified to see if she can follow-up with neurologist over [facility] if they can accommodate telemetry visit facility that she is following up with oncologist over [facility]. As stated above, will attempt to transfer patient for longterm EEG. The plan is discussed with patient and her family members ( and daughter). Also discussed with primary team. Time with Patient: Less than 30
--- NOTE | 2024-04-15 14:56 | P.PN ---
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 She has a past medical history of glioblastoma under the care of of an oncologist in [facility] s/p radiation and chemotherapy and not appropriate for surgery due to location of the tumor. She also has past medical history of hyperlipidemia, hypothyroidism, hypertension, gastroesophageal reflux disease, and seizure disorder. We have been asked to evaluate the patient for elevated troponins. Patient states that she came into the hospital for seizure that had lasted 3 hours. Patient is awake and alert at the time of this evaluation. She denies having any chest pain or chest discomfort or chest pressure. No shortness of breath. She does have some lower extremity edema. Patient is seen today in the emergency center waiting for a bed on the cardiac stepdown unit. EKG sinus rhythm, low voltage flat T waves in the anterior leads. Chest x-ray: Low lung volumes with generalized hazy appearance which could represent atelectasis versus pulmonary edema, correlate with serum BNP. CT of the brain without contrast revealed small right thalamus basal ganglia mass. Posttreatment changes in the right parietal and posterior frontal region. No new acute intracranial process. Right lower extremity venous duplex negative for DVT. WBC 12.2, hemoglobin 14.8. Sodium 134, potassium 3.9, BUN 24 creatinine 0.98. Troponins 0.057, 0.046 and 0.046. proBNP 460. TSH 2.84. Urine drug screen detected benzodiazepines. Salicylates, acetaminophen, alcohol levels less than 10. Home cardiac medications: Atenolol 25 mg daily, atorvastatin 40 mg at bedtime, Atacand 16 mg daily, Lasix 20 mg daily, also on levothyroxine 25 mcg daily. Echocardiogram performed on 08/16/2022 revealed normal left ventricular dimension and systolic function. 04/15 Patient is seen today in follow-up on the cardiac observation unit. Patient denies having any chest pain or shortness of breath. Blood pressure 131/85, heart rate 85, pulse ox 93% on room air. Echocardiogram reveals suboptimal stud y. EF 50%. Physical examination: Gen: This is a 78-year-old female in no acute distress. VS: reviewed, blood pressure 170/94-prior to morning medications, heart rate 85, pulse ox 97% on room air. HEENT: Head is atraumatic, normocephalic. Pupils equal, round. Sclerae is anicteric. NECK: Supple. No JVD. LUNGS: Clear to auscultation. No wheezes or rhonchi. No intercostal retractions. HEART: Regular rate and rhythm. No murmur. ABDOMEN: Soft No tenderness. EXTREMITIES: Mild pedal edema. No calf tenderness. NEUROLOGICAL: Patient is awake, alert and oriented x3. Assessment: Seizure activity Elevated troponin most likely type II non-ST AL Brain tumor Hyperlipidemia Hypothyroidism Hypertension Gastroesophageal reflux disease Plan: Continue patient's home cardiac medications Plan for outpatient follow-up and outpatient stress testing Discontinue telemetry monitoring Cardiology will sign off this case and follow on an as-needed basis. Please reconsult for any new concerns. Patient may follow-up in the office in one to [address] Pan. Nurse practitioner note has been reviewed, I agree with documented findings and plan of care. Patient was seen and examined. Objective - Vital Signs Vital signs: Vital Signs Temp 98.1 F 04/14/24 20:40 Pulse 65 04/15/24 04:45 Resp 18 04/15/24 04:45 BP 130/72 04/15/24 04:45 Pulse Ox 93 L 04/15/24 04:45 FiO2 Intake & Output 04/14/24 04/15/24 04/15/24 18:59 06:59 18:59 Intake Total 200 Output Total 1625 550 Balance -1425 -550 Weight 80.5 kg Intake: Oral 200 Output: Urine 1625 550 Other: Voiding Method External Catheter Diaper External Catheter - Labs CBC & Chem 7: 04/14/24 13:19 04/14/24 13:19 Labs: Abnormal Lab Results - Last 24 Hours (Table) 04/14/24 04/14/24 04/14/24 Range/Units 13:19 13:19 13:19 WBC 14.3 H (3.8-10.6) k/uL MCV 103.3 H (80.0-100.0) fL MCH 35.6 H (25.0-35.0) pg RDW 16.2 H (11.5-15.5) % Neutrophils # 12.4 H (1.3-7.7) k/uL Lymphocytes # 0.8 L (1.0-4.8) k/uL Sodium 132 L (137-145) mmol/L BUN 19 H (7-17) mg/dL Glucose 134 H (74-99) mg/dL Troponin I 0.039 H* (0.000-0.034) ng/mL Procalcitonin (0.02-0.09) ng/mL 04/14/24 Range/Units 13:19 WBC (3.8-10.6) k/uL MCV (80.0-100.0) fL MCH (25.0-35.0) pg RDW (11.5-15.5) % Neutrophils # (1.3-7.7) k/uL Lymphocytes # (1.0-4.8) k/uL Sodium (137-145) mmol/L BUN (7-17) mg/dL Glucose (74-99) mg/dL Troponin I (0.000-0.034) ng/mL Procalcitonin 0.19 H (0.02-0.09) ng/mL
[2024-04-15] MEDS: DIVALPROEX 500 MG TABLET.DR PO SCH (15:46)
--- NOTE | 2024-04-15 23:54 | EEG ---
ELECTROENCEPHALOGRAM REPORT CLINICAL HISTORY: This is a 78-year-old woman with history of seizure, glioblastoma multiforme, who presented to the hospital because of confusion. The video EEG is obtained to evaluate for seizure epileptiform activity. RELEVANT MEDICATIONS: 1. Vimpat. 2. Keppra. 3. Ativan. EEG TYPE: A routine 21-channel EEG with video using the 10/20 electrode placement system. DESCRIPTION: Wakefulness and drowsiness are obtained. During awake state, the background consists of 8.5 hertz activity that is well modulated, and well sustained. Otherwise, the patient is in a drowsy state. There is no physiological stage 2 sleep architecture. There is no focal slowing. Interictal and ictal, there is a sharply contoured beta activity over the left hemisphere, predominantly in left temporal, as well as the right frontal. There is no seizure noted during the study. ACTIVATION PROCEDURE: Photic stimulation did not evoke a posterior driving response. There is no abnormality during the photic stimulation. Hyperventilation is not performed. CLINICAL INTERPRETATION: This is an abnormal routine EEG. The epileptiform discharges predominately appreciated over the left hemisphere/left temporal can increase risk for seizure. No seizures noted during the study. Otherwise, the background was normal. Clinical correlation is recommended. MMODL / IJN: [id number] / NANNETTE
--- NOTE | 2024-04-16 07:56 | P.PN ---
Subjective Patient is a pleasant 78 years old female with past medical history of glioblastoma multiform a (s/p surgical resection and radiotherapy Also she has history of stroke from chronic left hemiparesis. 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 Patient currently On seizure medication. She is on Vimpat 150 mg twice daily and Keppra 1500 mg twice daily also she is on dexamethasone 2-3 times per day. Also she was on Valium as needed for seizure. Patient family at bedside states that her last seizure was over the last January but 1 week ago she had another seizure with abnormal movements of the right upper extremity and they gave her vomiting which helped control and her jerking movements. Patient currently is very lethargic, awake and alert and following commands, she is mildly confused. She is oriented about place time and person. She looks tired but she denies headache or dizziness. She has left chronic weakness of the legs and upper extremities. She denies GI or urinary symptoms. No chest pain or dyspnea. She is afebrile She has unremarkable INR, BMP liver enzymes Urinalysis is negative She has mild leukocytosis of 12,000 while she is on steroids dexamethasone Troponin is mildly elevated 0.05 Negative salicylate acetaminophen and serum alcohol level EKG showing sinus rhythm at [address]-T changes Chest x-ray is negative but because of poor quality suspicious for atelectasis versus edema. CT of the brain showing no acute process but previously seen right thalamus basal ganglia mass with postsurgical change of the right parietal and posterior frontal regions. 04/14/2024 Patient today is more awake and alert, looks like mentation at baseline. She is up in bed eating her breakfast, she has good appetite. She denies headache or dizziness. She moves her arms freely. No abnormal movements She still has chronic weakness of both lower extremities and she has bilateral leg swelling most likely secondary to disuse edema besides other problems. patient has also mildly elevated troponin, no chest pain or dyspnea. Troponin stable most likely secondary to kidney disease. Will check echocardiogram. Patient may benefit from cardiology evaluation Also we will check ultrasound of the her right leg as it is more swollen and warm and mildly red. Her superficial ulceration looks chronic and drying up with some serous discharge. No significant surrounding cellulitis on the left leg. Patient states at baseline she uses a chair and she might walk a little bit in her house only with help. 04/15/2024 Patient awake alert, looks little bit more tired Yesterday she had EEG showing epileptiform discharge and seizure-like activity lasted 1 minute and 40 seconds. The epileptic discharges on the left side of the sabianist. Currently she is kept on Keppra 1500 mg twice daily and Vimpat dose increased 150 up to 200. Also she is on benzodiazepine as needed Neurology team following closely Patient with no chest pain, mildly elevated troponin. Echocardiogram showing preserved ejection fraction or mildly low at 50%. She is not on aspirin currently. She is on losartan 100 mg and Lasix 40 mg IV twice daily. This can be switched to oral dose 40 mg daily tomorrow. Cellulitis of the lower extremity is also improving I will treated with doxycycline for a total of 7 days. Objective - Vital Signs Vital signs: Vital Signs Temp 98.2 F 04/15/24 09:42 Pulse 85 04/15/24 09:42 Resp 18 04/15/24 09:42 BP 131/85 04/15/24 09:42 Pulse Ox 93 L 04/15/24 09:42 FiO2 Intake & Output 04/14/24 04/15/24 04/15/24 18:59 06:59 18:59 Intake Total 200 140 Output Total 1625 550 400 Balance -1425 -550 -260 Weight 80.5 kg Intake: IV 20 Invasive Line 1 10 Invasive Line 2 10 Oral 200 120 Output: Urine 1625 550 400 Other: Voiding Method External Catheter Diaper Diaper External Catheter External Catheter - Exam GENERAL: The patient is alert and oriented x3, not in any acute distress. Well developed, well nourished. HEENT: Pupils are round and equally reacting to light. EOMI. No scleral icterus. No conjunctival pallor. Normocephalic, atraumatic. No pharyngeal erythema. No thyromegaly. CARDIOVASCULAR: S1 and S2 present. No murmurs, rubs, or gallops. PULMONARY: Chest is clear to auscultation, no wheezing , no crackles. ABDOMEN: Soft, nontender, nondistended, normoactive bowel sounds. No palpable organomegaly. MUSCULOSKELETAL: No joint swelling or deformity. -EXTREMITIES: No cyanosis, clubbing, , bilateral pitting leg edema. With few dry and superficial ulceration, with no surrounding cellulitis. Right leg is more warm and slightly more pink in the middle -NEUROLOGICAL: Gross neurological examination did not reveal any focal deficits. Weakness in both legs, chronic SKIN: No rashes. no petechiae. - Labs CBC & Chem 7: 04/14/24 13:19 04/14/24 13:19 Labs: Abnormal Lab Results - Last 24 Hours (Table) 04/14/24 04/14/24 04/14/24 Range/Units 13:19 13:19 13:19 WBC 14.3 H (3.8-10.6) k/uL MCV 103.3 H (80.0-100.0) fL MCH 35.6 H (25.0-35.0) pg RDW 16.2 H (11.5-15.5) % Neutrophils # 12.4 H (1.3-7.7) k/uL Lymphocytes # 0.8 L (1.0-4.8) k/uL Sodium 132 L (137-145) mmol/L BUN 19 H (7-17) mg/dL Glucose 134 H (74-99) mg/dL Troponin I 0.039 H* (0.000-0.034) ng/mL Procalcitonin (0.02-0.09) ng/mL 04/14/24 Range/Units 13:19 WBC (3.8-10.6) k/uL MCV (80.0-100.0) fL MCH (25.0-35.0) pg RDW (11.5-15.5) % Neutrophils # (1.3-7.7) k/uL Lymphocytes # (1.0-4.8) k/uL Sodium (137-145) mmol/L BUN (7-17) mg/dL Glucose (74-99) mg/dL Troponin I (0.000-0.034) ng/mL Procalcitonin 0.19 H (0.02-0.09) ng/mL Assessment and Plan Assessment: -Altered mental status, could be metabolic/toxic encephalopathy secondary to medication effect, with history of brain tumor s/p radiochemotherapy. CT showed right thalamus and basal ganglia mass. This could be due secondary to recent seizure and Valium extra dose she received, currently is back to baseline Focal seizures on multiple AED, with recent seizure like activity of the right upper extremity 1 week prior to hospitalization Possible right lower extremity cellulitis. Rule out deep venous thrombosis History of stroke and left hemiparesis Bilateral leg edema with superficial ulceration suspicious for cellulitis CKD, stage III Hypertension Mild leukocytosis secondary to steroid effect Elevated troponin, rule out cardiac causes. Although felt less likely Obesity with BMI of 37.6 Plan: Patient on multiple seizure medication, Continue with current Keppra Vimpat and benzodiazepine as needed Neurology consult Continue with dexamethasone echocardiogram results reviewed Cardiology consult Continue with oral Lasix Continue with doxycycline x 7 days Add Norvasc for better blood pressure control Ultrasound of the right leg is negative for DVT Labs and medication were reviewed.. Continue same treatment. Continue with symptomatic treatment. Resume home medication. Monitor labs and vitals. DVT and GI prophylaxis. Further recommendations as per clinical course of the patient DVT prophylaxis: Subcutaneous heparin GI Prophylaxis: Pepcid PT/OT: Pending Prognosis is guarded
[2024-04-16 10:51] LABS: African American GFR (CKD) 58 (>60 ml/min/1.73 sqM); Anion Gap 7 mmol/L; Blood Urea Nitrogen 32 mg/dL (7-17); Calcium 8.6 mg/dL (8.4-10.2); Carbon Dioxide 26 mmol/L (22-30); Chloride 100 mmol/L (98-107); Glucose 118 mg/dL (74-99); Non-African American GFR(CKD) 51 (>60 ml/min/1.73 sqM); Potassium 3.7 mmol/L (3.5-5.1); Sodium 133 mmol/L (137-145)
[2024-04-16 11:01] LABS: Basophils % (A) 0 %; Eosinophils % (A) 0 %; HCT 39.1 % (34.0-46.0); HGB 12.9 gm/dL (11.4-16.0); Lymphocytes % (A) 10 %; MCH 32.8 pg (25.0-35.0); MCV 99.3 fL (80.0-100.0); Macrocytosis Slight; Mean Platelet Volume 7.4; Monocytes # (A) 0.5 k/uL (0-1.0); Monocytes % (A) 5 %; Neutrophils # (A) 8.2 k/uL (1.3-7.7); Neutrophils % (A) 84 %; Platelet Count 229 k/uL (150-450); RBC 3.94 m/uL (3.80-5.40); RDW 15.8 % (11.5-15.5); WBC 9.8 k/uL (3.8-10.6)
--- NOTE | 2024-04-16 18:19 | P.PN ---
Subjective Progress Note Date: 04/16/24 I am following-up with patient and per nurse today she had a blank stare and seems looking up and she stated felt lasted close to one hour. No jerking of extremities. Then episode resolved but is slow to respond. She is pending a bed at [facility] for escalation of care for her seizure. Objective - Vital Signs Vital signs: Vital Signs Temp 97.3 F L 04/16/24 11:19 Pulse 53 L 04/16/24 16:06 Resp 18 04/16/24 16:06 BP 143/85 04/16/24 16:06 Pulse Ox 94 L 04/16/24 16:06 FiO2 Intake & Output 04/15/24 04/16/24 04/16/24 18:59 06:59 18:59 Intake Total 260 Output Total 400 1000 Balance -140 -1000 Weight 73 kg Intake: IV 20 Invasive Line 1 10 Invasive Line 2 10 Oral 240 Output: Urine 400 1000 Stool 0 Other: Voiding Method Diaper Diaper Diaper External Catheter External Catheter External Catheter - Exam General: Lying in bed and is not in acute distress. Neuro: Is moderately drowsy but is awakeable to voice. Is oriented to self. She is following simple commands. No aphasia from limited langued Pupils are 2-3mm and reactive to light. No facial weakness. No dysarhria. Some of the workup during this hospital visit consisted of: Bone and is 0.057 and is trending down. AST 32 and ALT of 46 Sodium is 134 Creatinine is normal Serum glucose is [address] of the head is reported as similar right thalamus/basal ganglia mass. Posttreatment changes right parietal/posterior frontal region. No acute intracranial process. Consider MRI if there is concern. I personally reviewed the CT and I agree there is no acute or subacute process. Routine EEG: Is abnormal. There is one seizure during the routine EEG lasting for 1:30-1:40 minutes over the left hemisphere. There epileptiform discharge over the left temporal can increase risk for seizure as well status epilepticus. There is no focal slowing. Repeat EEG: Is abnormal. The epileptiform discharges over the left temporal can increase risk for seizure. No seizure noted during this study. - Labs CBC & Chem 7: 04/16/24 10:07 04/16/24 10:07 Labs: Abnormal Lab Results - Last 24 Hours (Table) 04/16/24 04/16/24 Range/Units 10:07 10:07 RDW 15.8 H (11.5-15.5) % Neutrophils # 8.2 H (1.3-7.7) k/uL Sodium 133 L (137-145) mmol/L BUN 32 H (7-17) mg/dL Creatinine 1.07 H (0.52-1.04) mg/dL Glucose 118 H (74-99) mg/dL Assessment and Plan Assessment: This is a 78-year-old woman with a history of glioblastoma multiforme and was confirmed with biopsy in January 2023, seizure in August 2022 who presents because of confusion and hallucination. According to the family members this past Friday she had 3-hour episode of left arm twitching and resolved after rescue many medication of Valium. She had a recent MRI of the brain a few weeks ago. Episode of confusion and hallucination due to breakthrough seizure. Had a seizure over the left hemisphere lasting 1 minute and 30-40seconds on routine EEG. She continues to be drowsy with staring off. Repeat EEG was negative for seizure. Minimal elevated troponin I think it is reactive due seizure History of seizure due to glioblastoma multiforme Stage IV glioblastoma multiforme Plan: Patient is resumed on her home medication of Keppra 1500 mg twice daily, Vimpat 150 twice daily was increased to 200mg bid. I started the patient on Depakote 500mg bid on 04/15/2024 since has further confusion and concern for seizures and today went up since had episode of staring off and was unresponsive early in morning and resolved per nurse. Gave patient one time dose of Valium 5mg. Will start Valium every 8 hours PRN for seizure. She was accepted to [facility] for escalation of care for reconciler EEG. Pending bed. Seizure precautions seizure pads He was resumed on her home dose of dexamethasone 2 mg twice daily. For the elevated troponin cardiology is consulted by the primary team Will defer the rest of the medical management to primary team and other specialists Upon discharge the patient continue to follow-up with her oncologist over [facility], Dr. Arango. She is in the process of seeing a different neurologist since she was seeing someone over [place] but is having difficulty with transportation as well as affordability. She was notified to see if she can follow-up with neurologist over [facility] if they can acc ommodate telemetry visit facility that she is following up with oncologist over [facility]. The plan is discussed with patient's and her nurse. Dr. Robertson will resume neurology service tomorrow A.M. Time with Patient: Less than 30
[2024-04-16] MEDS: FUROSEMIDE 40 MG TAB PO SCH (21:14)
[2024-04-16] MEDS: levETIRAcetam IV 500 MG/5 ML VIAL IVP SCH (21:34)
[2024-04-16] MEDS: Lacosamide IV (ages 17+ yrs) 200 MG/20 ML ML IVP SCH (21:34)
[2024-04-16] MEDS: VALPROATE SODIUM 750 MG in SODIUM CHLORIDE 0.9% 50 ML IVPB SCH (21:49)
[2024-04-16] MEDS: DIVALPROEX 500 MG TABLET.DR PO SCH (21:55)
--- NOTE | 2024-04-16 22:50 | P.PN ---
Subjective Progress Note Date: 04/16/24 78 years old female with past medical history of glioblastoma multiform a (s/p surgical resection and radiotherapy Also she has history of stroke from chronic left hemiparesis. 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 Patient currently On seizure medication. She is on Vimpat 150 mg twice daily and Keppra 1500 mg twice daily also she is on dexamethasone 2-3 times per day. Also she was on Valium as needed for seizure. Patient family at bedside states that her last seizure was over the last January but 1 week ago she had another seizure with abnormal movements of the right upper extremity and they gave her vomiting which helped control and her jerking movements. Patient currently is very lethargic, awake and alert and following commands, she is mildly confused. She is oriented about place time and person. She looks tired but she denies headache or dizziness. She has left chronic weakness of the legs and upper extremities. She denies GI or urinary symptoms. No chest pain or dyspnea. She is afebrile She has unremarkable INR, BMP liver enzymes Urinalysis is negative She has mild leukocytosis of 12,000 while she is on steroids dexamethasone Troponin is mildly elevated 0.05 Negative salicylate acetaminophen and serum alcohol level EKG showing sinus rhythm at [address]-T changes Chest x-ray is negative but because of poor quality suspicious for atelectasis versus edema. CT of the brain showing no acute process but previously seen right thalamus basal ganglia mass with postsurgical change of the right parietal and posterior frontal regions. Objective - Vital Signs Vital signs: Vital Signs Temp 97.3 F L 04/16/24 11:19 Pulse 57 L 04/16/24 11:19 Resp 16 04/16/24 11:19 BP 133/71 04/16/24 11:19 Pulse Ox 94 L 04/16/24 11:19 FiO2 Intake & Output 04/15/24 04/16/24 04/16/24 18:59 06:59 18:59 Intake Total 260 Output Total 400 1000 Balance -140 -1000 Weight 73 kg Intake: IV 20 Invasive Line 1 10 Invasive Line 2 10 Oral 240 Output: Urine 400 1000 Stool 0 Other: Voiding Method Diaper Diaper Diaper External Catheter External Catheter External Catheter - Exam GENERAL: The patient is alert and oriented x3, not in any acute distress. Well developed, well nourished. HEENT: Pupils are round and equally reacting to light. EOMI. No scleral icterus. No conjunctival pallor. Normocephalic, atraumatic. No pharyngeal erythema. No thyromegaly. CARDIOVASCULAR: S1 and S2 present. No murmurs, rubs, or gallops. PULMONARY: Chest is clear to auscultation, no wheezing , no crackles. ABDOMEN: Soft, nontender, nondistended, normoactive bowel sounds. No palpable organomegaly. MUSCULOSKELETAL: No joint swelling or deformity. -EXTREMITIES: No cyanosis, clubbing, , bilateral pitting leg edema. With few dry and superficial ulceration, with no surrounding cellulitis. Right leg is more warm and slightly more pink in the middle -NEUROLOGICAL: Gross neurological examination did not reveal any focal deficits. Weakness in both legs, chronic SKIN: No rashes. no petechiae. - Labs CBC & Chem 7: 04/16/24 10:07 04/16/24 10:07 Labs: Abnormal Lab Results - Last 24 Hours (Table) 04/16/24 04/16/24 Range/Units 10: 10:07 RDW 15.8 H (11.5-15.5) % Sodium 133 L (137-145) mmol/L BUN 32 H (7-17) mg/dL Creatinine 1.07 H (0.52-1.04) mg/dL Glucose 118 H (74-99) mg/dL Assessment and Plan Assessment: Assessment: -Altered mental status, could be metabolic/toxic encephalopathy secondary to medication effect, with history of brain tumor s/p radiochemotherapy. CT showed right thalamus and basal ganglia mass. This could be due secondary to recent seizure and Valium extra dose she received, currently is back to baseline Focal seizures on multiple AED, with recent seizure like activity of the right upper extremity 1 week prior to hospitalization Possible right lower extremity cellulitis. Rule out deep venous thrombosis History of stroke and left hemiparesis Bilateral leg edema with superficial ulceration suspicious for cellulitis CKD, stage III Hypertension Mild leukocytosis secondary to steroid effect Elevated troponin, rule out cardiac causes. Although felt less likely Obesity with BMI of 37.6 Plan: Patient on multiple seizure medication, Continue with current Keppra Vimpat and benzodiazepine as needed Neurology consult Continue with dexamethasone echocardiogram results reviewed Cardiology consult Continue with oral Lasix Continue with doxycycline x 7 days Add Norvasc for better blood pressure control Ultrasound of the right leg is negative for DVT Labs and medication were reviewed.. Continue same treatment. Continue with symptomatic treatment. Resume home medication. Monitor labs and vitals. DVT and GI prophylaxis. Further recommendations as per clinical course of the patient DVT prophylaxis: Subcutaneous heparin GI Prophylaxis: Pepcid PT/OT: Pending Prognosis is guarded
[2024-04-17 10:12] LABS: Basophils % (A) 0 %; Eosinophils % (A) 0 %; HCT 43.8 % (34.0-46.0); HGB 14.5 gm/dL (11.4-16.0); Lymphocytes # (A) 1.6 k/uL (1.0-4.8); Lymphocytes % (A) 26 %; MCH 32.6 pg (25.0-35.0); MCV 98.9 fL (80.0-100.0); Macrocytosis Slight; Mean Platelet Volume 7.3; Monocytes # (A) 0.4 k/uL (0-1.0); Monocytes % (A) 6 %; Neutrophils # (A) 4.2 k/uL (1.3-7.7); Neutrophils % (A) 66 %; Platelet Count 240 k/uL (150-450); RBC 4.43 m/uL (3.80-5.40); RDW 15.8 % (11.5-15.5); WBC 6.4 k/uL (3.8-10.6)
[2024-04-17 10:30] LABS: African American GFR (CKD) 47 (>60 ml/min/1.73 sqM); Anion Gap 8 mmol/L; Blood Urea Nitrogen 40 mg/dL (7-17); Calcium 8.8 mg/dL (8.4-10.2); Carbon Dioxide 27 mmol/L (22-30); Chloride 101 mmol/L (98-107); Glucose 66 mg/dL (74-99); Non-African American GFR(CKD) 41 (>60 ml/min/1.73 sqM); Potassium 3.2 mmol/L (3.5-5.1); Sodium 136 mmol/L (137-145)
[2024-04-17 11:42] LABS: Glucose,Whole Blood 73 mg/dL (70-110)
--- NOTE | 2024-04-17 15:48 | P.PN ---
Subjective Progress Note Date: 04/17/24 78 years old female with past medical history of glioblastoma multiform a (s/p surgical resection and radiotherapy Also she has history of stroke from chronic left hemiparesis. 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 Patient currently On seizure medication. She is on Vimpat 150 mg twice daily and Keppra 1500 mg twice daily also she is on dexamethasone 2-3 times per day. Also she was on Valium as needed for seizure. Patient family at bedside states that her last seizure was over the last January but 1 week ago she had another seizure with abnormal movements of the right upper extremity and they gave her vomiting which helped control and her jerking movements. Patient currently is very lethargic, awake and alert and following commands, she is mildly confused. She is oriented about place time and person. She looks tired but she denies headache or dizziness. She has left chronic weakness of the legs and upper extremities. She denies GI or urinary symptoms. No chest pain or dyspnea. She is afebrile She has unremarkable INR, BMP liver enzymes Urinalysis is negative She has mild leukocytosis of 12,000 while she is on steroids dexamethasone Troponin is mildly elevated 0.05 Negative salicylate acetaminophen and serum alcohol level EKG showing sinus rhythm at [address]-T changes Chest x-ray is negative but because of poor quality suspicious for atelectasis versus edema. CT of the brain showing no acute process but previously seen right thalamus basal ganglia mass with postsurgical change of the right parietal and posterior frontal regions. 04/17/2024 Patient is seen and evaluated with family at bedside; opens eyes to verbal stimulation Vital signs reviewed and stable with temperature of 97.3, pulse 60, respiration 20 and blood pressure of 134/77 with O2 saturation of 93% on room air Lab review shows WBC of 6.4, hemoglobin of 14.5 and platelet count of 240, sodium 136, potassium 3.2, BUNs/creatinine of 40/1.27 --Patient awaits transfer to [facility] for higher level of care for seizure management We will supplement with oral potassium; plan to start patient on slow IV fluid hydration given worsening BUNs/creatinine Objective - Vital Signs Vital signs: Vital Signs Temp 97.5 F L 04/17/24 08:00 Pulse 62 04/17/24 08:00 Resp 20 04/17/24 08:00 BP 111/66 04/17/24 08:00 Pulse Ox 92 L 04/17/24 08:00 FiO2 Intake & Output 04/16/24 04/17/24 04/17/24 18:59 06:59 18:59 Output Total 550 1600 Balance -550 -1600 Weight 67.9 kg Output: Urine 550 1600 Other: Voiding Method Diaper Diaper Diaper External Catheter External Catheter External Catheter # Voids 1 # Bowel Movements 0 - Exam GENERAL: The patient is alert and oriented x3, not in any acute distress. Well developed, well nourished. HEENT: Pupils are round and equally reacting to light. EOMI. No scleral icterus. No conjunctival pallor. Normocephalic, atraumatic. No pharyngeal erythema. No thyromegaly. CARDIOVASCULAR: S1 and S2 present. No murmurs, rubs, or gallops. PULMONARY: Chest is clear to auscultation, no wheezing , no crackles. ABDOMEN: Soft, nontender, nondistended, normoactive bowel sounds. No palpable organomegaly. MUSCULOSKELETAL: No joint swelling or deformity. -EXTREMITIES: No cyanosis, clubbing, , bilateral pitting leg edema. With few dry and superficial ulceration, with no surrounding cellulitis. Right leg is more warm and slightly more pink in the middle -NEUROLOGICAL: Gross neurological examination did not reveal any focal deficits. Weakness in both legs, chronic SKIN: No rashes. no petechiae. - Labs CBC & Chem 7: 04/17/24 09:13 04/17/24 09:13 Labs: Abnormal Lab Results - Last 24 Hours (Table) 04/16/24 04/17/24 04/17/24 Range/Units 10:07 09:13 09:13 RDW 15.8 H (11.5-15.5) % Neutrophils # 8.2 H (1.3-7.7) k/uL Sodium 136 L (137-145) mmol/L Potassium 3.2 L (3.5-5.1) mmol/L BUN 40 H (7-17) mg/dL Creatinine 1.27 H (0.52-1.04) mg/dL Glucose 66 L (74-99) mg/dL Assessment and Plan Assessment: Assessment: -Altered mental status, could be metabolic/toxic encephalopathy secondary to medication effect, with history of brain tumor s/p radiochemotherapy. CT showed right thalamus and basal ganglia mass. This could be due secondary to recent seizure and Valium extra dose she received, currently is back to baseline Focal seizures on multiple AED, with recent seizure like activity of the right upper extremity 1 week prior to hospitalization Possible right lower extremity cellulitis. Rule out deep venous thrombosis History of stroke and left hemiparesis Bilateral leg edema with superficial ulceration suspicious for cellulitis CKD, stage III Hypertension Mild leukocytosis secondary to steroid effect Elevated troponin, rule out cardiac causes. Although felt less likely Obesity with BMI of 37.6 Plan: Patient on multiple seizure medication, Continue with current Keppra Vimpat and benzodiazepine as needed Neurology consult Continue with dexamethasone echocardiogram results reviewed Cardiology consult Continue with oral Lasix Continue with doxycycline x 7 days Add Norvasc for better blood pressure control Ultrasound of the right leg is negative for DVT Labs and medication were reviewed.. Continue same treatment. Continue with symptomatic treatment. Resume home medication. Monitor labs and vitals. DVT and GI prophylaxis. Further recommendations as per clinical course of the patient DVT prophylaxis: Subcutaneous heparin GI Prophylaxis: Pepcid PT/OT: Pending Prognosis is guarded
[2024-04-17 16:40] LABS: Glucose,Whole Blood 74 mg/dL (70-110)
--- NOTE | 2024-04-17 17:04 | P.PN ---
Subjective Progress Note Date: 04/17/24 Patient was initially seen by Dr. Remy Morgan. Please refer to his note for details. Patient is a 78-year-old female with history of GBM and seizure, who presents with breakthrough seizures. Had seizures on first EEG, but not on the second 1. She continues to be confused. Patient is awaiting transfer to [facility]. Patient was seen for a follow-up. Patient is laying in the bed. Appears somew hat groggy. Some of the workup during this hospital visit consisted of: Bone and is 0.057 and is trending down. AST 32 and ALT of 46 Sodium is 134 Creatinine is normal Serum glucose is [address] of the head is reported as similar right thalamus/basal ganglia mass. Posttreatment changes right parietal/posterior frontal region. No acute intracranial process. Consider MRI if there is concern. I personally reviewed the CT and I agree there is no acute or subacute process. Routine EEG: Is abnormal. There is one seizure during the routine EEG lasting for 1:30-1:40 minutes over the left hemisphere. There epileptiform discharge over the left temporal can increase risk for seizure as well status epilepticus. There is no focal slowing. Repeat EEG: Is abnormal. The epileptiform discharges over the left temporal can increase risk for seizure. No seizure noted during this study. Objective - Vital Signs Vital signs: Vital Signs Temp 97.7 F 04/17/24 16:00 Pulse 73 04/17/24 16:00 Resp 20 04/17/24 16:00 BP 126/79 04/17/24 16:00 Pulse Ox 93 L 04/17/24 16:00 FiO2 Intake & Output 04/16/24 04/17/24 04/17/24 18:59 06:59 18:59 Output Total 550 1600 400 Balance -550 -1600 -400 Weight 67.9 kg Output: Urine 550 1600 400 Other: Voiding Method Diaper Diaper Diaper External Catheter External Catheter External Catheter # Voids 1 # Bowel Movements 0 - Exam Patient is very groggy, encephalopathic. Patient not able to tell me her name. Face is symmetric. No obvious seizure-like activity noted. Pulls are equal, round and reactive to light. Patient is not following much directions. She is slightly squeezing right hand better than the left. Likewise she is slightly wiggling the toes of the right foot but not the left. Patient has Babinski on the left side. - Labs CBC & Chem 7: 04/17/24 09:13 04/17/24 09:13 Labs: Abnormal Lab Results - Last 24 Hours (Table) 04/17/24 04/17/24 Range/Units 09:13 09:13 RDW 15.8 H (11.5-15.5) % Sodium 136 L (137-145) mmol/L Potassium 3.2 L (3.5-5.1) mmol/L BUN 40 H (7-17) mg/dL Creatinine 1.27 H (0.52-1.04) mg/dL Glucose 66 L (74-99) mg/dL Assessment and Plan Assessment: This is a 78-year-old woman with a history of glioblastoma multiforme and was confirmed with biopsy in January 2023, seizure in August 2022 who presents because of confusion and hallucination. According to the family members this past Friday she had 3-hour episode of left arm twitching and resolved after rescue many medication of Valium. She had a recent MRI of the brain a few weeks ago. Episode of confusion and hallucination due to breakthrough seizure. Had a seizure over the left hemisphere lasting 1 minute and 30-40seconds on routine EEG. She continues to be drowsy with staring off. Repeat EEG was negative for seizure. Minimal elevated troponin I think it is reactive due seizure History of seizure due to glioblastoma multiforme Stage IV glioblastoma multiforme Plan: Continue on her home medication of Keppra 1500 mg twice daily, Vimpat 150 twice daily, and Dr. Morgan has increased to 200mg bid. He also started the patient on Depakote 500mg bid on 04/15/2024 since has further confusion and concern for seizures and today went up since had episode of staring off and was unresponsive early in morning and resolved per nurse. Dr. Morgan has recommended Valium every 8 hours PRN for seizure. [facility] was [facility] to [facility] for escal[facility] care for long term care social worker EEG. Pending bed. Seizure precautions seizure pads Patient is resumed on her home dose of dexamethasone 2 mg twice daily. For the elevated troponin cardiology is consulted by the primary team Will defer the rest of the medical management to primary team and other specialists Upon discharge the patient continue to follow-up with her oncologist over [facility], Dr. Arango. She is in the process of seeing a different neurologist since she was seeing someone over [place] but is having difficulty with transportation as well as affordability. She was notified to see if she can follow-up with neurologist over [facility] if they can accommodate telemetry visit facility that she is following up with oncologist o allie [facility].
[2024-04-17] MEDS: POTASSIUM CHLORIDE 20 MEQ in WATER FOR INJECTION 1 100ML.BAG IVPB STA (17:19)
[2024-04-17] MEDS: SODIUM CHLORIDE 0.9% 1,000 ML IV SCH (17:19)
[2024-04-17 19:49] LABS: Glucose,Whole Blood 84 mg/dL (70-110)
[2024-04-18] MEDS ORDERED: LORazepam 1 MG/0.5 ML VIAL IV PRN ×2 (03:19→03:23)
[2024-04-18 06:10] LABS: Glucose,Whole Blood 94 mg/dL (70-110)
[2024-04-18 09:09] LABS: African American GFR (CKD) 38 (>60 ml/min/1.73 sqM); Anion Gap 11 mmol/L; Blood Urea Nitrogen 49 mg/dL (7-17); Calcium 9.1 mg/dL (8.4-10.2); Carbon Dioxide 21 mmol/L (22-30); Chloride 105 mmol/L (98-107); Glucose 96 mg/dL (74-99); Non-African American GFR(CKD) 33 (>60 ml/min/1.73 sqM); Potassium 3.7 mmol/L (3.5-5.1); Sodium 137 mmol/L (137-145)
[2024-04-18 09:35] LABS: Basophils # (A) 0.3 k/uL (0-0.2); Basophils % (A) 3 %; Eosinophils % (A) 0 %; HGB 14.9 gm/dL (11.4-16.0); Lymphocytes # (A) 0.6 k/uL (1.0-4.8); Lymphocytes % (A) 6 %; MCH 33.5 pg (25.0-35.0); MCHC 32.3 g/dL (31.0-37.0); MCV 103.7 fL (80.0-100.0); Macrocytosis Moderate; Mean Platelet Volume 7.5; Monocytes # (A) 0.5 k/uL (0-1.0); Monocytes % (A) 6 %; Neutrophils % (A) 84 %; Platelet Count 233 k/uL (150-450); RBC 4.44 m/uL (3.80-5.40); RDW 15.8 % (11.5-15.5); WBC 9.5 k/uL (3.8-10.6)
[2024-04-18 10:14] LABS: ALT 32 U/L (4-34); AST 32 U/L (14-36); Albumin 3.3 g/dL (3.5-5.0); Alkaline Phosphatase 102 U/L (38-126); Total Bilirubin 0.9 mg/dL (0.2-1.3); Total Protein 6.2 g/dL (6.3-8.2)
[2024-04-18 11:17] LABS: INR 0.9 (<1.2); Partial Thromboplastin Time 24.4 sec (22.0-30.0); Prothrombin Time 10.4 sec (10.0-12.5)
--- NOTE | 2024-04-18 13:51 | P.PN ---
Progress Note - Text Progress Note Date: 04/18/24 Inform the nurse last night at 10:30 PM that when she went to see the patient, she was grunting and her eyes were rolled up and was responding to sternal rubbing. Patient was given Valium, and since then she has not had anymore seizure activity. Patient is already on Vimpat 200 mg twice a day, Keppra 1500 mg twice a day. Recommended to give Valium 1-2 mg IV every 1 hours when necessary seizure. The nurses have not noticed any seizure-like activity since last night. I had recommended for patient to be transferred to [facility], as transferred to [facility] is taking number of days. We will check EEG. Discussed with patient's nurse in detail.
[2024-04-18] MEDS: FUROSEMIDE 10 MG/ML 4 ML VIAL IV SCH (16:20)
[2024-04-18] MEDS: DEXAMETHASONE SOD PHOSPHATE 4 MG/ML 1 ML VIAL IVP SCH (21:42)
[2024-04-18 21:50] VITALS: PULSE 92
[2024-04-18] MEDS: SCOPOLAMINE 1 MG/72 HR PATCH TRANSDERM STA (23:24)
[2024-04-18 23:30] VITALS: BP 119/69; RESP 18; TEMP 98.1
[2024-04-20] MEDS ORDERED: FERROUS SULFATE 325 MG TAB PO SCH (12:00)
== END 2024-04-19 01:24 | disposition short-term general hospital (02) | DRG 100 ==
LOC: EC 09:51 → 3SCARD 15:45 → OBSVTOIN 04-15 06:10
PROVIDERS: ADMIT Internal Medicine; ATTEND Internal Medicine
DX: G40.901 Epilepsy, unspecified, not intractable, with status epilepticus (principal); G92.8 Other toxic encephalopathy; I21.A1 Myocardial infarction type 2; C71.1 Malignant neoplasm of frontal lobe; I69.354 Hemiplegia and hemiparesis following cerebral infarction affecting left non-dominant side; L97.919 Non-pressure chronic ulcer of unspecified part of right lower leg with unspecified severity; L03.115 Cellulitis of right lower limb; N18.30 Chronic kidney disease, stage 3 unspecified; Z68.37 Body mass index [BMI] 37.0-37.9, adult; E66.9 Obesity, unspecified; E03.9 Hypothyroidism, unspecified; I12.9 Hypertensive chronic kidney disease with stage 1 through stage 4 chronic kidney disease, or unspecified chronic kidney disease; E78.5 Hyperlipidemia, unspecified; K21.9 Gastro-esophageal reflux disease without esophagitis; T50.905A Adverse effect of unspecified drugs, medicaments and biological substances, initial encounter; T38.0X5A Adverse effect of glucocorticoids and synthetic analogues, initial encounter; Z79.890 Hormone replacement therapy; Z79.899 Other long term (current) drug therapy; Z92.21 Personal history of antineoplastic chemotherapy; Z92.3 Personal history of irradiation; Z88.1 Allergy status to other antibiotic agents; Z88.5 Allergy status to narcotic agent; Z88.2 Allergy status to sulfonamides; Z88.8 Allergy status to other drugs, medicaments and biological substances
CPT/HCPCS: 36415; 70450; 71046; 80048; 80053; 80143; 80179; 80306; 80320; 81003; 83735; 83880; 84145; 84443; 84484; 85025; 85610; 85730; 93005; 93306; 94760; 95816; 96372; 96374; 96375; 99285